=== PATIENT | male | born 1940 | race Caucasian/White ===

== ENCOUNTER → 2020-11-27 | Outpatient (CLI) | payer MEDICARE, OTHER ==
[~2020-11-27] MED LIST: ASPI81TA26 PO; ATOR1TAB21 PO; BIMA01SOL OU; ERGO500029; HUMA100I5; JARD1TAB; LOSA25TA13 PO; METF-838 PO; PRIM50TA6 PO; SEMA1PEN2; VITMTA PO
== END ==
LOC: M LABSMTC 11:25
PROVIDERS: ATTEND Anesthesiology
DX: Z01.818 Encounter for other preprocedural examination (principal); Z11.52 Encounter for screening for COVID-19

== ENCOUNTER 2020-12-01 07:51 | Day surgery (SDC) | payer MEDICARE, OTHER ==
[~2020-12-01] VITALS: Ht 182.9 cm; Wt 100.2 kg
[~2020-12-01 07:51] MED LIST changes: -ASPI81TA26 PO; +ATOR1TAB21; -ATOR1TAB21 PO; +BIMA01SOL; -BIMA01SOL OU; +BUPIVACAINE HCL 0.5% 10ML VIAL As Ordered ONE; +CEFUROXIME 1MG/0.1ML INTRACAMERAL INJ As Ordered ONE; +DUOVISC (0.50ML VISCOAT/0.85ML PROVISC) OPHTH KIT As Ordered ONE; +LIDOCAINE 1% SDV 5ML VIAL As Ordered ONE; -LOSA25TA13 PO; +LOSA25TA14; +PRIM50TA6; -PRIM50TA6 PO; +PROPARACAINE 0.5% OPHTH SOL 15ML OD ONE
[2020-12-01] MEDS ORDERED: BSS IRR 500ML/OMIDRIA 4ML IRR BAG (OR ONLY) As Ordered ONE (08:04)
[2020-12-01] MEDS: TROPICAMIDE 1% OPHTH SOLN 2ML OD SCH ×3 (08:29→08:46)
[2020-12-01] MEDS: PHENYLEPHRINE 2.5% OPHTH SOL 2ML OD SCH ×3 (08:29→08:47)
[2020-12-01] MEDS: OFLOXACIN 0.3 % (OCUFLOX) OPTH SOL 5ML OD SCH ×3 (08:29→08:47)
[2020-12-01] MEDS ORDERED: MIDAZOLAM INJ 2MG/2ML VIAL (J2250 PER 1MG) As Ordered ONE (08:43)
[2020-12-01 10:17] VITALS: BP 158/79
--- NOTE | 2020-12-05 19:44 | RO ---
OPERATIVE NOTE DATE OF OPERATION: 12/01/2020 PREOPERATIVE DIAGNOSIS: 1. Mature cataract, right eye. 2. Moderate open-angle glaucoma, right eye. POSTOPERATIVE DIAGNOSIS: 1. Mature cataract, right eye. 2. Moderate open-angle glaucoma, right eye. PROCEDURE: Phacoemulsification, cataract extraction, implantation of intraocular lens, right eye. Istent inject W trabecular bypass stents, right eye. SURGEON: Eren Garces M.D. ANESTHESIA: MAC and topical. COMPLICATIONS: None. ESTIMATED BLOOD LOSS: 0 mL. CONDITION: Excellent to recovery room with shield over right eye. LENS: Vivity Toric increased depth of focus lens, power 22.5 diopter with 1.5 diopter cylinder at 10 degrees. iStent inject serial number is [id number]. INDICATIONS FOR PROCEDURE: The patient experienced decreased vision associated with cataract formation. He is poorly compliant with his glaucoma drops. He stopped them on his own several times because he did not think he needed them any more and understands his glaucoma needs much better control. He wished to proceed with microinvasive glaucoma surgery using the MIGS trabecular bypass stents to decrease his need for drops and additional surgery going forward. He gave informed consent for the above procedures. PROCEDURE NOTE: Prior to entering the operating room, the patient was identified and the right eye was marked. He was wheeled supine to the OR suite positioned on a stretcher. Anesthesia was initiated. Topical Tetracaine was placed in both eyes. He was prepped and draped with 5% povidone iodine to the lids and lashes. The lashes were taped with Tegaderm. A speculum was placed in the right eye. A 1 mm side port was created at the 11:30 position. 1% preservative free lidocaine was injected. Viscoat was injected. A 2.6 mm stepped, grooved clear corneal incision was made temporally. A bent cystitome needle created a continuous curvilinear capsulorhexis. The head of the patient was then rotated 45 degrees away from the surgeon while the microscope was rotated 45 degrees toward the surgeon. Viscoat was placed on the cornea and additional Viscoat in the anterior chamber. A gonial prism was placed over the cornea and this afforded an excellent view of the medial anterior chamber angle structures. The iStent pipe blanks cut off saw operator was advanced through the clear corneal wound across the pupil and on high magnification, the sheath pipe blanks cut off saw operator was drawn back, exposing the trocar. The tip of the trocar engaged the trabecular meshwork one clock hour beneath the horizontal meridian. The button was pushed and the stent was deployed. 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 A second stent was deployed in the same fashion 1 clock hour above the horizontal meridian. The pipe blanks cut off saw operator was then withdrawn carefully from the eye. The patient's head and microscope were rotated back to primary position. BSS was used to wash off the cornea. Hydrodissection was then carried out using BSS and the lens was found to rotate freely in the capsular bag. It was phacoemulsified using [id number] technique. Residual cortex was removed with the IA. Provisc was injected to expand the capsular bag. The ora intraoperative aberrometer was then used to check lens power and axis of astigmatism. After several measurements, the above mentioned lens was called for and then used the reticle to assist, the toric sebastian on the intraocular lens were aligned with the reticle at the 10 degree axis. Residual viscoelastic was removed with the IA. BSS was used to hydrate the corneal wound and seal it. Antibiotic prophylaxis was injected. The speculum was removed from the eye. A shield was taped over the eye. The patient was taken in excellent condition to the recovery room.
== END 2020-12-01 10:44 | disposition home or self-care (01) ==
LOC: M SDC 07:51
PROVIDERS: ATTEND Ophthalmology
DX: H25.11 Age-related nuclear cataract, right eye (principal); H40.1110 Primary open-angle glaucoma, right eye, stage unspecified; I10 Essential (primary) hypertension; I25.10 Atherosclerotic heart disease of native coronary artery without angina pectoris; E11.21 Type 2 diabetes mellitus with diabetic nephropathy; E78.5 Hyperlipidemia, unspecified; M10.9 Gout, unspecified; Z79.4 Long term (current) use of insulin; Z79.899 Other long term (current) drug therapy; D53.9 Nutritional anemia, unspecified; Z79.84 Long term (current) use of oral hypoglycemic drugs
CPT/HCPCS: 66183; 66984; C1783; J1097; J2250; V2788

== ENCOUNTER → 2021-01-22 | Outpatient (CLI) | payer MEDICARE, OTHER ==
[~2021-01-22] MED LIST changes: +ASPI81TA26 PO; -ATOR1TAB21; +ATOR1TAB21 PO; -BIMA01SOL; +BIMA01SOL OU; -BUPIVACAINE HCL 0.5% 10ML VIAL As Ordered ONE; -CEFUROXIME 1MG/0.1ML INTRACAMERAL INJ As Ordered ONE; -DUOVISC (0.50ML VISCOAT/0.85ML PROVISC) OPHTH KIT As Ordered ONE; -LIDOCAINE 1% SDV 5ML VIAL As Ordered ONE; -LOSA25TA14; +LOSA25TA14 PO; -PRIM50TA6; +PRIM50TA6 PO; -PROPARACAINE 0.5% OPHTH SOL 15ML OD ONE
== END ==
LOC: M LABSMTC 09:14
PROVIDERS: ATTEND Anesthesiology
DX: Z01.812 Encounter for preprocedural laboratory examination (principal); Z20.822 Contact with and (suspected) exposure to COVID-19

== ENCOUNTER 2021-01-26 06:42 | Day surgery (SDC) | payer MEDICARE, OTHER ==
[~2021-01-26] VITALS: Ht 188 cm; Wt 99.8 kg
[~2021-01-26 06:42] MED LIST changes: +OFLOXACIN 0.3 % (OCUFLOX) OPTH SOL 5ML OS SCH; +PHENYLEPHRINE 2.5% OPHTH SOL 2ML OS SCH; +PROPARACAINE 0.5% OPHTH SOL 15ML OS ONE; +TROPICAMIDE 1% OPHTH SOLN 2ML OS SCH
--- OUTSIDE RECORDS SUMMARY | 2021-01-26 06:50 | CCD ---
Author Author Debbie Morse DO Organization Debbie Morse DO Address [address] [place], [place] [id number] Care Team Providers Care Direct Mail Coordinator Name Role Phone Mini WELCH MA, Amandeep Pina Unavailable Debbie Morse DO Unavailable Debbie Morse DO PCP ENCOUNTERS Encounter Performer Loca tion Date Bilateral cataracts [SNOMED-CT: 72764576] Dr. Debbie Morse DO 11-20-2020 Diabetes mellitus [SNOMED-CT: 34790865] Dr. Debbie Morse DO 11-20-2020 Diabetic nephropathy [SNOMED-CT: 442773715] Dr. Debbie Morse DO 11-20-2020 Hyperlipidemia [SNOMED-CT: 50401493] Dr. Debbie Morse DO 11-20-2020 Deficiency anemias [SNOMED-CT: 248603284] Dr. Debbie Morse DO 11-20-2020 Abnormal EKG finding [SNOMED-CT: 683724432] Dr. Debbie Morse DO 11-20-2020 Other hyperlipidemia [ICD10: E78.49] Dr. Debbie Morse DO 10-30-2020 Bilateral cataracts [SNOMED-CT: 51595743] Dr. Debbie Morse DO 10-30-2020 Diabetic nephropathy [SNOMED-CT: 952690668] Dr. Debbie Morse DO 10-30-2020 CORONARY ATHEROSCLEROSIS OF UNSPECIFIED TYPE OF VE [SNOMED-CT: 96634074] N/A N/A 10-30-2020 UNSPECIFIED ESSENTIAL HYPERTENSION [SNOMED-CT: 2769991 0] N/A N/A 10-30-2020 Vitamin D deficiency [SNOMED-CT: 81645389] Dr. Debbie Morse, DO 05-05-2020 Diabetic nephropathy [SNOMED-CT: 198811970] Dr. Debbie Morse, DO 05-05-2020 CORONARY ATHEROSCLEROSIS OF UNSPECIFIED TYPE OF VE [SNOMED-CT: 73751484] N/A N/A 05-05-2020 UNSPECIFIED ESSENTIAL HYPERTENSION [SNOMED-CT: 2133490 0] N/A N/A 05-05-2020 Other hyperlipidemia [ICD10: E78.49] Dr. Debbie Morse, DO 05-05-2020 Diabetes mellitus [SNOMED-CT: 62131441] Dr. Debbie Morse, DO 01-28-2020 On examination - aortic systolic murmur [SNOMED-CT: 826357992] Dr. Debbie Morse, DO 01-07-2020 Systolic ejection sound [SNOMED-CT: 37148933] Dr. Debbie Morse, DO 01-07-2020 Diabetes mellitus [SNOMED-CT: 64040362] Dr. Debbie Morse, DO 10-01-2019 UNSPECIFIED ESSENTIAL HYPERTENSION [SNOMED-CT: 5175648 0] N/A N/A 10-01-2019 Other hyperlipidemia [ICD10: E78.49] Dr. Debbie Morse, DO 10-01-2019 Diabetic nephropathy [SNOMED-CT: 333862751] Dr. Debbie Morse, DO 10-01-2019 Intention tremor [SNOMED-CT: 22450476] Dr. Debbie Morse, DO 10-01-2019 Leukopenia [SNOMED-CT: 57288686] Dr. Debbie Morse, DO 05-17-2019 Malaise and fatigue [SNOMED-CT: 944934900] Dr. Debbie Morse, DO 05-17-2019 Malaise and fatigue [SNOMED-CT: 353443674] Dr. Debbie Morse, DO 05-12-2019 Diabetic nephropathy [SNOMED-CT: 692701746] Dr. Debbie Morse, DO 05-12-2019 Other hyperlipidemia [ICD10: E78.49] Dr. Debbie Morse, DO 05-12-2019 Chronic tremor [SNOMED-CT: 173910412] Dr. Debbie Morse, DO 05-12-2019 Hoarseness [SNOMED-CT: 29494485] Dr. Debbie Morse, DO 05-12-2019 Vitamin D deficiency [SNOMED-CT: 44948607] Dr. Debbie Morse, DO 05-12-2019 Encounter for general adult medical exam ination without abnormal findings [ICD10: Z00.00] Amandeep Morse, DO 12-25-2018 Encounter for general adult medical exam ination without abnormal findings [ICD10: Z00.00] Amandeep Morse, DO 09-21-2018 Diabetic nephropathy [SNOMED-CT: 728836907] Dr. Debbie Morse, DO 07-27-2018 Vitamin D deficiency [SNOMED-CT: 98859559] Dr. Debbie Morse, DO 07-27-2018 Diabetes mellitus [SNOMED-CT: 04531575] Dr. Debbie Morse, DO 07-06-2018 UNSPECIFIED ESSENTIAL HYPERTENSION [SNOMED-CT: 5963936 0] N/A N/A 07-06-2018 Malaise and fatigue [SNOMED-CT: 807166713] Dr. Debbie Morse, DO 07-06-2018 Cough [SNOMED-CT: 27626174] Dr. Deb Morse, DO 07-06-2018 Diabetes mellitus [SNOMED-CT: 19227370] Dr. Debbie Morse, DO 12-29-2017 Hyperlipidemia [SNOMED-CT: 55626381] Dr. Debbie Morse, DO 12-29-2017 UNSPECIFIED ESSENTIAL HYPERTENSION [SNOMED-CT: 2292189 0] N/A N/A 12-29-2017 Intention tremor [SNOMED-CT: 11213646] Dr. Debbie Morse, DO 12-29-2017 Intention tremor [SNOMED-CT: 32219115] Dr. Debbie Morse, DO 01-17-2017 Encounter for general adult medical exam ination without abnormal findings [ICD10: Z00.00] Amandeep Morse, DO 10-23-2016 Diabetic - poor control [SNOMED-CT: 520818328] Dr. Debbie Morse, DO 09-16-2016 Intention tremor [SNOMED-CT: 06919719] Dr. Debbie Morse, DO 09-16-2016 CORONARY ATHEROSCLEROSIS OF UNSPECIFIED TYPE OF VE [SNOMED-CT: 40559322] N/A N/A 09-16-2016 Diabetes mellitus [SNOMED-CT: 00824802] Dr. Debbie Morse, DO 01-17-2016 Hyperlipidemia [SNOMED-CT: 85642138] Dr. Debbie Morse, DO 01-17-2016 ULCERATIVE COLITIS UNSPECIFIED [SNOMED-CT: 92487786] N/A N/A 01-17-2016 UNSPECIFIED ESSENTIAL HYPERTENSION [SNOMED-CT: 1225886 0] N/A N/A 01-17-2016 Other specified vaccination [ICD10: Z23] Amandeep Morse, DO 01-17-2016 Achilles tenosynovitis [SNOMED-CT: 395120612] Dr. Debbie Morse, DO 08-14-2015 Intention tremor [SNOMED-CT: 24964605] Dr. Debbie Morse, DO 05-15-2015 Malaise and fatigue [SNOMED-CT: 349955796] Dr. Debbie Morse, DO 05-15-2015 Diabetes mellitus [SNOMED-CT: 36428455] Dr. Debbie Morse, DO 05-15-2015 Diabetic - poor control [SNOMED-CT: 979847929] Dr. Debbie Morse, DO 01-30-2015 Dizziness [SNOMED-CT: 386331250] Dr. Debbie Morse, DO 01-30-2015 Intention tremor [SNOMED-CT: 52286694] Dr. Debbie Morse, DO 01-30-2015 Diabetic - poor control [SNOMED-CT: 677045192] Dr. Debbie Morse, DO 12-09-2014 ULCERATIVE COLITIS UNSPECIFIED [SNOMED-CT: 69367234] N/A N/A 12-09-2014 Hyperlipidemia [SNOMED-CT: 92227497] Dr. Debbie Morse, DO 12-09-2014 UNSPECIFIED ESSENTIAL HYPERTENSION [SNOMED-CT: 0418984 0] N/A N/A 12-09-2014 CORONARY ATHEROSCLEROSIS OF UNSPECIFIED TYPE OF VE [SNOMED-CT: 93893647] N/A N/A 12-09-2014 Benign enlargement of prostate [SNOMED-CT: 939984695] Dr. Debbie Morse, DO 12-09-2014 Influenza vaccine needed [SNOMED-CT: 2153318064560] Amandeep Morse, DO 12-09-2014 Acute rhinosinusitis [SNOMED-CT: 547746157] Dr. Debbie Morse, DO 05-30-2014 Diabetic - poor control [SNOMED-CT: 422027542] Dr. Debbie Morse, DO 04-29-2014 UNSPECIFIED ESSENTIAL HYPERTENSION [SNOMED-CT: 5030136 0] N/A N/A 04-29-2014 ULCERATIVE COLITIS UNSPECIFIED [SNOMED-CT: 75668597] N/A N/A 04-29-2014 Diabetic - poor control [SNOMED-CT: 321412590] Dr. Debbie Morse, DO 12-06-2013 UNSPECIFIED ESSENTIAL HYPERTENSION [SNOMED-CT: 3909058 0] N/A N/A 12-06-2013 Diabetic - poor control [SNOMED-CT: 834290536] Dr. Debbie Morse, DO 11-17-2013 UNSPECIFIED ESSENTIAL HYPERTENSION [SNOMED-CT: 5864263 0] N/A N/A 11-17-2013 Diabetic - poor control [SNOMED-CT: 990109387] Dr. Debbie Morse, DO 09-20-2013 Diabetes mellitus [SNOMED-CT: 10812001] Dr. Debbie Morse, DO 07-21-2013 UNSPECIFIED ESSENTIAL HYPERTENSION [SNOMED-CT: 8616906 0] N/A N/A 07-21-2013 Diabetes mellitus [SNOMED-CT: 53369445] Dr. Debbie Morse, DO 05-26-2013 UNSPECIFIED ESSENTIAL HYPERTENSION [SNOMED-CT: 5885358 0] N/A N/A 05-26-2013 Diabetic - poor control [SNOMED-CT: 479661847] Dr. Debbie Morse, DO 03-12-2013 UNSPECIFIED ESSENTIAL HYPERTENSION [SNOMED-CT: 7049107 0] N/A N/A 03-12-2013 CORONARY ATHEROSCLEROSIS OF UNSPECIFIED TYPE OF VE [SNOMED-CT: 32579652] N/A N/A 03-12-2013 Diabetic - poor control [SNOMED-CT: 507663306] Dr. Debbie Morse, DO 11-04-2012 UNSPECIFIED ESSENTIAL HYPERTENSION [SNOMED-CT: 7629022 0] N/A N/A 11-04-2012 REDNESS OR DISCHARGE OF EYE [SNOMED-CT: 99481368] Amandeep Morse, DO 06-12-2012 PAIN IN OR AROUND EYE [SNOMED-CT: 25242923] Amandeep Morse, DO 06-12-2012 Diabetic - poor control [SNOMED-CT: 860971828] Dr. Debbie Morse, DO 05-06-2012 UNSPECIFIED ESSENTIAL HYPERTENSION [SNOMED-CT: 4095827 0] N/A N/A 05-06-2012 CORONARY ATHEROSCLEROSIS OF UNSPECIFIED TYPE OF VE [SNOMED-CT: 11136520] N/A N/A 05-06-2012 ULCERATIVE COLITIS UNSPECIFIED [SNOMED-CT: 13610026] N/A N/A 05-06-2012 UNSPECIFIED VIRAL INFECTION [SNOMED-CT: 622888163] Amandeep Morse, DO 05-06-2012 Diabetic - poor control [SNOMED-CT: 368122090] Dr. Debbie Morse, DO 01-15-2012 UNSPECIFIED ESSENTIAL HYPERTENSION [SNOMED-CT: 2388661 0] N/A N/A 01-15-2012 Diabetes mellitus [SNOMED-CT: 12299116] Dr. Debbie Morse, DO 07-22-2011 CORONARY ATHEROSCLEROSIS OF UNSPECIFIED TYPE OF VE [SNOMED-CT: 36404912] N/A N/A 07-22-2011 UNSPECIFIED ESSENTIAL HYPERTENSION [SNOMED-CT: 7312845 0] N/A N/A 07-22-2011 Diabetic - poor control [SNOMED-CT: 847799667] Dr. Debbie Morse, DO 02-27-2011 UNSPECIFIED ESSENTIAL HYPERTENSION [SNOMED-CT: 0318315 0] N/A N/A 02-27-2011 Diabetic - poor control [SNOMED-CT: 334407372] Dr. Debbie Morse, DO 11-19-2010 UNSPECIFIED ESSENTIAL HYPERTENSION [SNOMED-CT: 9530963 0] N/A N/A 11-19-2010 NEED FOR PROPHYLACTIC VACCINATION AND IN OCULATION AGAINST INFLUENZA [SNOMED-CT: 674594282] Amandeep Morse, DO 11-19-2010 Diabetes mellitus [SNOMED-CT: 07143226] Dr. Debbie Morse, DO 06-06-2010 CORONARY ATHEROSCLEROSIS OF UNSPECIFIED TYPE OF VE [SNOMED-CT: 71064004] N/A N/A 06-06-2010 CERVICALGIA [SNOMED-CT: 82434165] Grzegorz Morse, DO 06-06-2010 IMPOTENCE OF ORGANIC ORIGIN [SNOMED-CT: 868684020] Amandeep Morse, DO 03-14-2010 IMPOTENCE OF ORGANIC ORIGIN [SNOMED-CT: 308837466] Amandeep Morse, DO 02-16-2010 IMPOTENCE OF ORGANIC ORIGIN [SNOMED-CT: 638628214] Amandeep Morse, DO 01-17-2010 Diabetic - poor control [SNOMED-CT: 225930911] Dr. Debbie Morse, DO 12-20-2009 ULCERATIVE COLITIS UNSPECIFIED [SNOMED-CT: 45584551] N/A N/A 12-20-2009 CORONARY ATHEROSCLEROSIS OF UNSPECIFIED TYPE OF VE [SNOMED-CT: 28118796] N/A N/A 12-20-2009 IMPOTENCE OF ORGANIC ORIGIN [SNOMED-CT: 507409147] Amandeep Morse, DO 12-20-2009 Diabetic - poor control [SNOMED-CT: 765391415] Dr. Debbie Morse, DO 03-31-2009 ULCERATIVE COLITIS UNSPECIFIED [SNOMED-CT: 53257981] N/A N/A 03-31-2009 CORONARY ATHEROSCLEROSIS OF UNSPECIFIED TYPE OF VE [SNOMED-CT: 30989644] N/A N/A 03-31-2009 IMPOTENCE OF ORGANIC ORIGIN [SNOMED-CT: 239553788] Amandeep Morse, DO 03-31-2009 Diabetic - poor control [SNOMED-CT: 754617330] Dr. Debbie Morse, DO 08-15-2008 Diabetes mellitus [SNOMED-CT: 02000135] Dr. 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 Debbie Morse, DO 06-28-2019 ALLERGIES AND ADVERSE REACTIONS Substance Reaction Sever ity Status No Known Drug Allergies (RxNorm: Unknown) -- -- Active FUNCTIONAL STATUS There is no cognitive and functional status saved for this patient. IMMUNIZATIONS Vaccine Date Status Moderna COVID-19 Vaccine (207) 2020 9:03:33 AM Completed Pneumovax 23 (33) 05/24/2019 8:39:03 AM Completed Fluzone High Dose (135) 05/24/2019 8: 38:35 AM Completed Prevnar 13 (133) 01/19/2016 1:51:53 PM Completed Fluvirin (141) 01/17/2016 11:35:18 AM Completed Afluria (141) 12/09/2014 12:33:32 PM Completed FluLaval (141) 11/19/2010 10:54:29 AM Completed H1N1 03/31/2009 12:00:00 AM Completed MEDICAL EQUIPMENT Patient has no history of implanted devices. MEDICATIONS Medication Generic Name Instructions Dosage Start Date Status primidone 50 mg oral tablet, [RxNorm: 406173] primidone one po hs daily for tremor 90 10/30/2020 Active OneTouch Ultra Blue In Vitro Strip Unknown use as directed tid ac for insulin dosing Dx E11.9 270 10/30/2020 Active metFORMIN 500 mg oral tablet, extended release metFORMIN three po daily in am 270 10/30/2020 Active losartan 25 mg oral tablet, [RxNorm: 725461] losartan one po daily 10/31/19 Active atorvastatin 20 mg oral tablet, [RxNorm: 117979] atorvastatin one po daily 90 10/31/19 Active Ozempic (1 mg dose) 4 mg/3 mL subcutaneous solution semaglutide one dose weekly 0 10/30/2020 Active HumaLOG KwikPen 100 units/mL injectable solution, [RxNorm: 9251659] insulin lispro 20 units with dinner 90 05/05/2020 Active Lumigan 0.01% ophthalmic solution, [RxNorm: 7969761] bimatoprost ophthalmic 0 12/29/2017 Active BD ultrafine needles for insulin Unknown use as directed qid 100 02/13/2016 Active glucometer with supplies One Touch Ultra Mini Unknown use as directed ac bid Dx 250.00 1 04/01/2014 Active Drainable [id number] Unknown Use as directed 1 11/19/2010 Active Brock-Fit Natura Stomahesive Flexible Wafer 32mm #[id number] 2 Unknown Use as directed 1 11/19/2010 Active Stomahesive flexible wafer 1 1/2' Unknown Use as directed 3 months 08/21/2009 Active Lancets Unknown use as d irected 90 06/24/2008 Active INSURANCE PROVIDERS Payer Name Policy Type P olicy ID Covered Republican ID Policy Narayanan [facility] [employer] SERVICES MEDICARE Health Insurance [id number] MEENU HERNANDEZ R [id number] FREEMAN MOURA ASSESSMENTS # Bilateral cataracts (H26.9): anticipating surgery on the right# Diabetes mellitus (E11.9): # Diabetic nephropathy (E11.21): # Hyperlipidemia (E78.5): # Deficiency anemias (D53.9):# Abnormal EKG finding (R94.31): PROBLEMS Problem Problem Status D ate Started Date Resolved Date Inactivated Influenza vaccine needed [SNOMED-CT: 3176211111478] Active 12-09-2014 NA NA Acute rhinosinusitis [SNOMED-CT: 703831157] Active 05-30-2014 NA NA UNSPECIFIED VIRAL INFECTION [SNOMED-CT: 376403117] Active 05-06-2012 NA NA REDNESS OR DISCHARGE OF EYE [SNOMED-CT: 27968769] Active 06-12-2012 NA NA Diabetes mellitus [SNOMED-CT: 67076172] Active 05-15-2015 NA NA Routine general medical examination at a health care facility [ICD10: Z00.00] Active 01-17-2016 NA NA DIABETES MELLITUS WITHOUT MENTION OF COM PLICATION [SNOMED-CT: 538741121] Active 06-20-2008 NA NA UNSPECIFIED ESSENTIAL HYPERTENSION [SNOMED-CT: 5060493 0] Active 06-20-2008 NA NA 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 [SNOMED-CT: 9675235 07] Active 06-20-2008 NA NA PAIN IN OR AROUND EYE [SNOMED-CT: 43642041] Active 06-12-2012 NA NA Malaise and fatigue [SNOMED-CT: 046524799] Active 05-15-2015 NA NA On examination - aortic systolic murmur [SNOMED-CT: 937687452] Active 01-07-2020 NA NA Systolic ejection sound [SNOMED-CT: 59667947] Active 01-07-2020 NA NA DIABETES MELLITUS WITHOUT MENTION OF COM PLICATION [SNOMED-CT: 233237100] Active 08-15-2008 NA NA Diabetic nephropathy [SNOMED-CT: 134185565] Active 07-27-2018 NA NA Vitamin D deficiency [SNOMED-CT: 45386138] Active 07-27-2018 NA NA Cough [SNOMED-CT: 63187184] Active 07-06-2018 NA NA Bilateral cataracts [SNOMED-CT: 80633700] Active 10-30-2020 NA NA CERVICALGIA [SNOMED-CT: 59860210] Active 06-06-2010 NA NA DIABETES MELLITUS WITHOUT MENTION OF COM PLICATION TYPE II OR UNSPECIFIED TYPE UNCONTROLLED [SNOMED-CT: 475302761] Active 03-12-2013 NA NA Leukopenia [SNOMED-CT: 72662313] Active 05-17-2019 NA NA NEED FOR PROPHYLACTIC VACCINATION AND IN OCULATION AGAINST INFLUENZA [SNOMED-CT: 303832467] Active 11-19-2010 NA NA Diabetic - poor control [SNOMED-CT: 339772287] Active 12-09-2014 NA NA Hyperlipidemia [SNOMED-CT: 82758266] Activ e 12-09-2014 NA NA Benign enlargement of prostate [SNOMED-CT: 953379828] Active 12-09-2014 NA NA Achilles tenosynovitis [SNOMED-CT: 350956426] Active 08-14-2015 NA NA Other specified vaccination [ICD10: Z23] Active 01-17-2016 NA NA ULCERATIVE COLITIS UNSPECIFIED [SNOMED-CT: 10096440] Active 03-31-2009 NA NA CORONARY ATHEROSCLEROSIS OF UNSPECIFIED TYPE OF VE [SNOMED-CT: 63513799] Active 03-31-2009 NA NA HYPERPLASIA OF PROSTATE UNSPECIFIED [SNOMED-CT: 119979 004] Active 03-31-2009 NA NA IMPOTENCE OF ORGANIC ORIGIN [SNOMED-CT: 162784297] Active 03-31-2009 NA NA IMPOTENCE OF ORGANIC ORIGIN [SNOMED-CT: 196674335] Active 01-17-2010 NA NA Encounter for general adult medical exam ination without abnormal findings [ICD10: Z00.00] Active 10-23-2016 NA NA Gouty arthropathy [SNOMED-CT: 616968686] Active 12-29-2017 NA NA Dizziness [SNOMED-CT: 396565541] Active 01-30-2015 NA NA Intention tremor [SNOMED-CT: 73702749] Active 01-30-2015 NA NA Other hyperlipidemia [ICD10: E78.49] Activ e 05-12-2019 NA NA Chronic tremor [SNOMED-CT: 716507892] Active 05-12-2019 NA NA Hoarseness [SNOMED-CT: 17315167] Active 05-12-2019 NA NA Deficiency anemias [SNOMED-CT: 381227085] Active 11-20-2020 NA NA Abnormal EKG finding [SNOMED-CT: 828612506] Active 11-20-2020 NA NA PROCEDURES Procedure Date CPT Code Procedure 11/20/2020 09:55:18 24501 Office or other outpatient visit for the evaluation and management of an established patient, which requires at least 2 of these 3 mcconnell components: A comprehensive history; A comprehensive examination; Medical decision making of high complexity. Counseling and/or coordination of care with other providers or agencies are provided consistent with the nature of the problem(s) and the patient's and/or family's needs. Usually, the presenting problem(s) are of moderate to high severity. Physicians typically spend 40 minutes gypx-bt-fqzr with the patient and/or family. 10/30/2020 08:25:19 G0439 ANNUAL WELLNESS VISIT, SUBSEQUENT 10/30/2020 08:25:19 G8427 Eligible clinician attests to documenting in the medical record they obtained, updated, or reviewed the patient's current medications 10/30/2020 08:25:19 29725 Hemoglobin; glycosylated (A1C) by device cleared by FDA for home use 10/30/2020 08:25:19 3044F Most recent hemoglobin A1c (HbA1c) level less than 7.0% (DM) 10/30/2020 08:25:19 1036F Current tobacco non-user (CAD, CAP, COPD, PV) (DM) (IBD) 10/30/2020 08:25:19 2F Dilated retinal eye exam with interpretation by an job honer or marble supervisor documented and reviewed (DM) 10/30/2020 08:25:19 1123F Advance Care Planning discussed and documented advance care plan or surrogate decision maker documented in the medical record (DEM) (NANETTE, Pall Cr) 05/05/2020 13:32:27 3044F Most recent hemoglobin A1c (HbA1c) level less than 7.0% (DM) 05/05/2020 08:51:19 33889 Telephone evaluation and management service by a physician or other qualified health field care advocate who may report evaluation and management services provided to an established patient, parent, or guardian not originating from a related E/M service provided within the previous 7 days nor leading to an E/M service or procedure within the next 24 hours or soonest available appointment; 11-20 minutes of medical discussion 05/05/2020 08:51:19 G8427 Eligible clinician attests to documenting in the medical record they obtained, updated, or reviewed the patient's current medications 01/28/2020 09:18:14 96416 Telephone evaluation and management service by a physician or other qualified health field care advocate who may report evaluation and management services provided to an established patient, parent, or guardian not originating from a related E/M service provided within the previous 7 days nor leading to an E/M service or procedure within the next 24 hours or soonest available appointment; 11-20 minutes of medical discussion 01/07/2020 12:28:49 05306 Office or other outpatient visit for the evaluation and management of an established patient, which requires at least 2 of these 3 mcconnell components: An expanded problem focused history; An expanded problem focused examination; Medical decision making of low complexity. Counseling and coordination of care with other providers or agencies are provided consistent with the nature of the problem(s) and the patient's and/or family's needs. Usually, the presenting problem(s) are of low to moderate severity. Physicians typically spend 15 minutes jjej-rn-dkuj with the patient and/or family. 11/29/2019 14:25:52 3044F Most recent hemoglobin A1c (HbA1c) level less than 7.0% (DM) 10/01/2019 09:24:35 G0439 ANNUAL WELLNESS VISIT, SUBSEQUENT 10/01/2019 09:24:35 G8427 Eligible clinician attests to documenting in the medical record they obtained, updated, or reviewed the patient's current medications 10/01/2019 09:24:35 1036F Current tobacco non-user (CAD, CAP, COPD, PV) (DM) (IBD) 10/01/2019 09:24:35 3044F Most recent hemoglobin A1c (HbA1c) level less than 7.0% (DM) 10/01/2019 09:24:35 1123F Advance Care Planning discussed and documented advance care plan or surrogate decision maker documented in the medical record (DEM) (NANETTE, Pall Cr) 06/28/2019 12:47:05 03379 Office or other outpatient visit for the evaluation and management of an established patient, which requires at least 2 of these 3 mcconnell components: An expanded problem focused history; An expanded problem focused examination; Medical decision making of low complexity. Counseling and coordination of care with other providers or agencies are provided consistent with the nature of the problem(s) and the patient's and/or family's needs. Usually, the presenting problem(s) are of low to moderate severity. Physicians typically spend 15 minutes lrjo-ue-iecd with the patient and/or family. 05/17/2019 14:26:42 91714 Office or other outpatient visit for the evaluation and management of an established patient, which requires at least 2 of these 3 mcconnell components: A detailed history; A detailed examination; Medical decision making of moderate complexity. Counseling and/or coordination of care with other providers or agencies are provided consistent with the nature of the problem(s) and the patient's and/or family's n eeds. Usually, the presenting problem(s) are of moderate to high severity. Physicians typically spend 25 minutes xexf-xd-yomk with the patient and/or family. 05/12/2019 08:23:59 23783 Office or other outpatient visit for the evaluation and management of an established patient, which requires at least 2 of these 3 mcconnell components: A comprehensive history; A comprehensive examination; Medical decision making of high complexity. Counseling and/or coordination of care with other providers or agencies are provided consistent with the nature of the problem(s) and the patient's and/or family's needs. Usually, the presenting problem(s) are of moderate to high severity. Physicians typically spend 40 minutes lzmk-rv-lzay with the patient and/or family. 05/12/2019 08:23:59 25430 Hemoglobin; glycosylated (A1C) by device cleared by FDA for home use 05/12/2019 08:23:59 G8427 Eligible clinician attests to documenting in the medical record they obtained, updated, or reviewed the patient's current medications 05/12/2019 08:23:59 3044F Most recent hemoglobin A1c (HbA1c) level less than 7.0% (DM) 12/25/2018 11:00:16 49522 Periodic comprehensive preventive medicine reevaluation and management of an individual including an age and gender appropriate history, examination, counseling/anticipatory guidance/risk factor reduction interventions, and the ordering of laboratory/diagnostic procedures, established patient; 65 years and older 12/08/2018 10:47:25 3044F Most recent hemoglobin A1c (HbA1c) level less than 7.0% (DM) 09/21/2018 09:27:25 43187 Periodic comprehensive preventive medicine reevaluation and management of an individual including an age and gender appropriate history, examination, counseling/anticipatory guidance/risk factor reduction interventions, and the ordering of laboratory/diagnostic procedures, established patient; 65 years and older 09/21/2018 09:27:25 3045F Most recent hemoglobin A1c (HbA1c) level 7.0-9.0% (DM) 09/21/2018 09:27:25 2F Dilated retinal eye exam with interpretation by an job honer or marble supervisor documented and reviewed (DM) 09/21/2018 09:27:25 G8427 Eligible clinician attests to documenting in the medical record they obtained, updated, or reviewed the patient's current medications 08/31/2018 11:31:29 3045F Most recent hemoglobin A1c (HbA1c) level 7.0-9.0% (DM) 07/27/2018 15:09:01 01416 Office or other outpatient visit for the evaluation and management of an established patient, which requires at least 2 of these 3 mcconnell components: An expanded problem focused history; An expanded problem focused examination; Medical decision making of low complexity. Counseling and coordination of care with other providers or agencies are provided consistent with the nature of the problem(s) and the patient's and/or family's needs. Usually, the presenting problem(s) are of low to moderate severity. Physicians typically spend 15 minutes ewvo-hd-khfa with the patient and/or family. 07/06/2018 11:57:31 G8427 Eligible clinician attests to documenting in the medical record they obtained, updated, or reviewed the patient's current medications 07/06/2018 11:57:31 1036F Current tobacco non-user (CAD, CAP, COPD, PV) (DM) (IBD) 07/06/2018 11:57:31 2021F Dilated retinal eye exam with interpretation by an job honer or marble supervisor documented and reviewed (DM) 07/06/2018 11:57:31 3045F Most recent hemoglobin A1c (HbA1c) level 7.0-9.0% (DM) 07/06/2018 11:57:31 1123F Advance Care Planning discussed and documented advance care plan or surrogate decision maker documented in the medical record (DEM) (NANETTE, Pall Cr) 07/06/2018 11:57:31 [id number] Periodic comprehensive preventive medicine reevaluation and management of an individual including an age and gender appropriate history, examination, counseling/anticipatory guidance/risk factor reduction interventions, and the ordering of laboratory/diagnostic procedures, established patient; 65 years and older 12/29/2017 11:43:59 G0439 ANNUAL WELLNESS VISIT, SUBSEQUENT 12/29/2017 11:43:59 92182 Hemoglobin; glycosylated (A1C) by device cleared by FDA for home use 12/29/2017 11:43:59 3044F Most recent hemoglobin A1c (HbA1c) level less than 7.0% (DM) 12/29/2017 11:43:59 1036F Current tobacco non-user (CAD, CAP, COPD, PV) (DM) (IBD) 12/29/2017 11:43:59 G8427 Eligible clinician attests to documenting in the medical record they obtained, updated, or reviewed the patient's current medications 12/29/2017 11:43:59 2022F Dilated retinal eye exam with interpretation by an job honer or marble supervisor documented and reviewed (DM) 12/29/2017 11:43:59 1123F Advance Care Planning discussed and documented advance care plan or surrogate decision maker documented in the medical record (DEM) (NANETTE, Pall Cr) 08/25/2017 14:35:53 3044F Most recent hemoglobin A1c (HbA1c) level less than 7.0% (DM) 01/17/2017 13:59:40 46156 Office or other outpatient visit for the evaluation and management of an established patient, which requires at least 2 of these 3 mcconnell components: A detailed history; A detailed examination; Medical decision making of moderate complexity. Counseling and/or coordination of care with other providers or agencies are provided consistent with the nature of the problem(s) and the patient's and/or family's n eeds. Usually, the presenting problem(s) are of moderate to high severity. Physicians typically spend 25 minutes gzpn-rc-kgdm with the patient and/or family. 10/23/2016 14:17:10 76966 Periodic comprehensive preventive medicine reevaluation and management of an individual including an age and gender appropriate history, examination, counseling/anticipatory guidance/risk factor reduction interventions, and the ordering of laboratory/diagnostic procedures, established patient; 65 years and older 10/23/2016 14:17:10 88905 Periodic comprehensive preventive medicine reevaluation and management of an individual including an age and gender appropriate history, examination, counseling/anticipatory guidance/risk factor reduction interventions, and the ordering of laboratory/diagnostic procedures, established patient; 65 years and older 10/23/2016 14:17:10 G8427 Eligible clinician attests to documenting in the medical record they obtained, updated, or reviewed the patient's current medications 10/23/2016 14:17:10 1036F Current tobacco non-user (CAD, CAP, COPD, PV) (DM) (IBD) 10/23/2016 14:17:10 2021F Dilated retinal eye exam with interpretation by an job honer or marble supervisor documented and reviewed (DM) 10/23/2016 14:17:10 3044F Most recent hemoglobin A1c (HbA1c) level less than 7.0% (DM) 09/16/2016 09:17:04 79072 Office or other outpatient visit for the evaluation and management of an established patient, which requires at least 2 of these 3 mcconnell components: A detailed history; A detailed examination; Medical decision making of moderate complexity. Counseling and/or coordination of care with other providers or agencies are provided consistent with the nature of the problem(s) and the patient's and/or family's n eeds. Usually, the presenting problem(s) are of moderate to high severity. Physicians typically spend 25 minutes reoy-ci-vfvf with the patient and/or family. 09/16/2016 09:17:04 G9711 Patients with a diagnosis or past history of total colectomy or colorectal cancer 09/16/2016 09:17:04 2F Dilated retinal eye exam with interpretation by an job honer or marble supervisor documented and reviewed (DM) 09/16/2016 09:17:04 G8427 Eligible clinician attests to documenting in the medical record they obtained, updated, or reviewed the patient's current medications 09/16/2016 09:17:04 3044F Most recent hemoglobin A1c (HbA1c) level less than 7.0% (DM) 09/16/2016 09:17:04 1036F Current tobacco non-user (CAD, CAP, COPD, PV) (DM) (IBD) 01/17/2016 10:41:29 Q2037 FLUVRIN 01/17/2016 10:41:29 G0008 ADMINISTRATION OF FLU VACCINE (V04.81) 01/17/2016 10:41:29 G0439 ANNUAL WELLNESS VISIT, SUBSEQUENT 08/14/2015 11:10:52 42260 Office or other outpatient visit for the evaluation and management of an established patient, which requires at least 2 of these 3 mcconnell components: An expanded problem focused history; An expanded problem focused examination; Medical decision making of low complexity. Counseling and coordination of care with other providers or agencies are provided consistent with the nature of the problem(s) and the patient's and/or family's needs. Usually, the presenting problem(s) are of low to moderate severity. Physicians typically spend 15 minutes gqpb-aq-uinw with the patient and/or family. 05/15/2015 08:28:44 88034 Office or other outpatient visit for the evaluation and management of an established patient, which requires at least 2 of these 3 mcconnell components: A detailed history; A detailed examination; Medical decision making of moderate complexity. Counseling and/or coordination of care with other providers or agencies are provided consistent with the nature of the problem(s) and the patient's and/or family's n eeds. Usually, the presenting problem(s) are of moderate to high severity. Physicians typically spend 25 minutes orlb-gj-opdx with the patient and/or family. 01/30/2015 08:36:25 10382 Collection of venous blood by venipuncture 01/30/2015 08:36:25 15570 Office or other outpatient visit for the evaluation and management of an established patient, which requires at least 2 of these 3 mcconnell components: An expanded problem focused history; An expanded problem focused examination; Medical decision making of low complexity. Counseling and coordination of care with other providers or agencies are provided consistent with the nature of the problem(s) and the patient's and/or family's needs. Usually, the presenting problem(s) are of low to moderate severity. Physicians typically spend 15 minutes hepp-yh-ffdc with the patient and/or family. 12/09/2014 11:50:27 39793 Office or other outpatient visit for the evaluation and management of an established patient, which requires at least 2 of these 3 mcconnell components: An expanded problem focused history; An expanded problem focused examination; Medical decision making of low complexity. Counseling and coordination of care with other providers or agencies are provided consistent with the nature of the problem(s) and the patient's and/or family's needs. Usually, the presenting problem(s) are of low to moderate severity. Physicians typically spend 15 minutes qwyr-vm-atbe with the patient and/or family. 12/09/2014 11:50:27 Q2035 Afluria flu Vaccine 12/09/2014 11:50:27 G0008 ADMINISTRATION OF FLU VACCINE (V04.81) 05/30/2014 08:55:58 77237 Office or other outpatient visit for the evaluation and management of an established patient, which requires at least 2 of these 3 mcconnell components: An expanded problem focused history; An expanded problem focused examination; Medical decision making of low complexity. Counseling and coordination of care with other providers or agencies are provided consistent with the nature of the problem(s) and the patient's and/or family's needs. Usually, the presenting problem(s) are of low to moderate severity. Physicians typically spend 15 minutes roub-sb-qbyg with the patient and/or family. 04/29/2014 15:16:59 G0439 ANNUAL WELLNESS VISIT, SUBSEQUENT 04/29/2014 15:16:59 61908 Hemoglobin; glycosylated (A1C) by device cleared by FDA for home use 12/06/2013 00:00:00 28768 Office or other outpatient visit for the evaluation and management of an established patient, which requires at least 2 of these 3 mcconnell components: An expanded problem focused history; An expanded problem focused examination; Medical decision making of low complexity. Counseling and coordination of care with other providers or agencies are provided consistent with the nature of the problem(s) and the patient's and/or family's needs. Usually, the presenting problem(s) are of low to moderate severity. Physicians typically spend 15 minutes yhca-ux-ivvn with the patient and/or family. 11/17/2013 00:00:00 12329 Office or other outpatient visit for the evaluation and management of an established patient, which requires at least 2 of these 3 mcconnell components: An expanded problem focused history; An expanded problem focused examination; Medical decision making of low complexity. Counseling and coordination of care with other providers or agencies are provided consistent with the nature of the problem(s) and the patient's and/or family's needs. Usually, the presenting problem(s) are of low to moderate severity. Physicians typically spend 15 minutes bjil-dr-fgln with the patient and/or family. 09/20/2013 00:00:00 04903 Office or other outpatient visit for the evaluation and management of an established patient, which requires at least 2 of these 3 mcconnell components: A detailed history; A detailed examination; Medical decision making of moderate complexity. Counseling and/or coordination of care with other providers or agencies are provided consistent with the nature of the problem(s) and the patient's and/or family's n eeds. Usually, the presenting problem(s) are of moderate to high severity. Physicians typically spend 25 minutes hcwe-vu-uneb with the patient and/or family. 09/20/2013 00:00:00 06066 Hemoglobin; glycosylated (A1C) by device cleared by FDA for home use 07/21/2013 00:00:00 26708 Office or other outpatient visit for the evaluation and management of an established patient, which requires at least 2 of these 3 mcconnell components: A detailed history; A detailed examination; Medical decision making of moderate complexity. Counseling and/or coordination of care with other providers or agencies are provided consistent with the nature of the problem(s) and the patient's and/or family's n eeds. Usually, the presenting problem(s) are of moderate to high severity. Physicians typically spend 25 minutes pysa-xb-dafj with the patient and/or family. 06/30/2013 00:00:00 65089 Hemoglobin; glycosylated (A1C) by device cleared by FDA for home use 05/26/2013 00:00:00 64110 Office or other outpatient visit for the evaluation and management of an established patient, which requires at least 2 of these 3 mcconnell components: A comprehensive history; A comprehensive examination; Medical decision making of high complexity. Counseling and/or coordination of care with other providers or agencies are provided consistent with the nature of the problem(s) and the patient's and/or family's needs. Usually, the presenting problem(s) are of moderate to high severity. Physicians typically spend 40 minutes dyxw-cj-xbac with the patient and/or family. 05/26/2013 00:00:00 90860 Hemoglobin; glycosylated (A1C) by device cleared by FDA for home use 03/12/2013 00:00:00 36451 Hemoglobin; glycosylated (A1C) by device cleared by FDA for home use 03/12/2013 00:00:00 27849 Collection of venous blood by venipuncture 03/12/2013 00:00:00 19732 Office or other outpatient visit for the evaluation and management of an established patient, which requires at least 2 of these 3 mcconnell components: A detailed history; A detailed examination; Medical decision making of moderate complexity. Counseling and/or coordination of care with other providers or agencies are provided consistent with the nature of the problem(s) and the patient's and/or family's n eeds. Usually, the presenting problem(s) are of moderate to high severity. Physicians typically spend 25 minutes vsqq-an-pypy with the patient and/or family. 11/04/2012 11:10:05 G0438 MEDICARE PHYSICAL (ANNUAL WELLNESS, FIRST) 06/12/2012 10:23:59 73664 Office or other outpatient visit for the evaluation and management of an established patient, which requires at least 2 of these 3 mcconnell components: An expanded problem focused history; An expanded problem focused examination; Medical decision making of low complexity. Counseling and coordination of care with other providers or agencies are provided consistent with the nature of the problem(s) and the patient's and/or family's needs. Usually, the presenting problem(s) are of low to moderate severity. Physicians typically spend 15 minutes gybg-wx-winz with the patient and/or family. 05/25/2012 09:16:46 92100 Office or other outpatient visit for the evaluation and management of an established patient, which requires at least 2 of these 3 mcconnell components: A detailed history; A detailed examination; Medical decision making of moderate complexity. Counseling and/or coordination of care with other providers or agencies are provided consistent with the nature of the problem(s) and the patient's and/or family's n eeds. Usually, the presenting problem(s) are of moderate to high severity. Physicians typically spend 25 minutes hwij-zj-jiob with the patient and/or family. 05/06/2012 09:14:51 00531 Infectious agent antigen detection by immunoassay with direct optical observation; Influenza 05/06/2012 09:14:51 36571 Hemoglobin; glycosylated (A1C) by device cleared by FDA for home use 05/06/2012 09:14:51 53126 Office or other outpatient visit for the evaluation and management of an established patient, which requires at least 2 of these 3 mcconnell components: An expanded problem focused history; An expanded problem focused examination; Medical decision making of low complexity. Counseling and coordination of care with other providers or agencies are provided consistent with the nature of the problem(s) and the patient's and/or family's needs. Usually, the presenting problem(s) are of low to moderate severity. Physicians typically spend 15 minutes dxlh-ww-krfi with the patient and/or family. 05/06/2012 09:14:51 75584 Collection of venous blood by venipuncture 01/15/2012 11:25:41 05108 Hemoglobin; glycosylated (A1C) by device cleared by FDA for home use 01/15/2012 11:25:41 54796 Office or other outpatient visit for the evaluation and management of an established patient, which requires at least 2 of these 3 mcconnell components: A detailed history; A detailed examination; Medical decision making of moderate complexity. Counseling and/or coordination of care with other providers or agencies are provided consistent with the nature of the problem(s) and the patient's and/or family's n eeds. Usually, the presenting problem(s) are of moderate to high severity. Physicians typically spend 25 minutes kbjk-om-rgqm with the patient and/or family. 07/22/2011 11:36:33 G8553 AT LEASTONE PRESCRIPTION CREATED DURING THE ENCOUNTER WAS GENERATED AND TRANSMITTED ELECTRONICALLY USING A QUALIFIED [employer] SYSTEM 07/22/2011 11:36:33 88814 Office or other outpatient visit for the evaluation and management of an established patient, which requires at least 2 of these 3 mcconnell components: A detailed history; A detailed examination; Medical decision making of moderate complexity. Counseling and/or coordination of care with other providers or agencies are provided consistent with the nature of the problem(s) and the patient's and/or family's n eeds. Usually, the presenting problem(s) are of moderate to high severity. Physicians typically spend 25 minutes afki-gc-jcpw with the patient and/or family. 07/22/2011 11:36:33 43606 Collection of venous blood by venipuncture 02/27/2011 14:11:30 22340 Hemoglobin; glycosylated (A1C) 02/27/2011 14:11:30 92059 Office or other outpatient visit for the evaluation and management of an established patient, which requires at least 2 of these 3 mcconnell components: A detailed history; A detailed examination; Medical decision making of moderate complexity. Counseling and/or coordination of care with other providers or agencies are provided consistent with the nature of the problem(s) and the patient's and/or family's n eeds. Usually, the presenting problem(s) are of moderate to high severity. Physicians typically spend 25 minutes cmog-mr-knvg with the patient and/or family. 11/19/2010 09:55:18 68561 INFLUENZA VACCINATION 11/19/2010 09:55:18 77608 Office or other outpatient visit for the evaluation and management of an established patient, which requires at least 2 of these 3 mcconnell components: A detailed history; A detailed examination; Medical decision making of moderate complexity. Counseling and/or coordination of care with other providers or agencies are provided consistent with the nature of the problem(s) and the patient's and/or family's n eeds. Usually, the presenting problem(s) are of moderate to high severity. Physicians typically spend 25 minutes jwrv-lc-uvkh with the patient and/or family. 11/19/2010 09:55:18 68961 Immunization administration (includes percutaneous, intradermal, subcutaneous, or intramuscular injections); one vaccine (single or combination vaccine/toxoid) 06/06/2010 11:56:45 82861 Office or other outpatient visit for the evaluation and management of an established patient, which requires at least 2 of these 3 mcconnell components: An expanded problem focused history; An expanded problem focused examination; Medical decision making of low complexity. Counseling and coordination of care with other providers or agencies are provided consistent with the nature of the problem(s) and the patient's and/or family's needs. Usually, the presenting problem(s) are of low to moderate severity. Physicians typically spend 15 minutes dgxn-gf-kztk with the patient and/or family. 03/14/2010 09:31:41 80439 Office or other outpatient visit for the evaluation and management of an established patient, which requires at least 2 of these 3 mcconnell components: An expanded problem focused history; An expanded problem focused examination; Medical decision making of low complexity. Counseling and coordination of care with other providers or agencies are provided consistent with the nature of the problem(s) and the patient's and/or family's needs. Usually, the presenting problem(s) are of low to moderate severity. Physicians typically spend 15 minutes oomp-je-akvb with the patient and/or family. 02/16/2010 15:36:52 33301 Office or other outpatient visit for the evaluation and management of an established patient, which requires at least 2 of these 3 mcconnell components: A problem focused history; A problem focused examination; Straightforward medical decision making. Counseling and/or coordination of care with other providers or agencies are provided consistent with the nature of the problem(s) and the patient's and/or f amily's needs. Usually, the presenting problem(s) are self limited or minor. Physicians typically spend 10 minutes rfee-fa-bhqh with the patient and/or family. 01/17/2010 15:16:51 59549 Office or other outpatient visit for the evaluation and management of an established patient, which requires at least 2 of these 3 mcconnell components: A problem focused history; A problem focused examination; Straightforward medical decision making. Counseling and/or coordination of care with other providers or agencies are provided consistent with the nature of the problem(s) and the patient's and/or f amily's needs. Usually, the presenting problem(s) are self limited or minor. Physicians typically spend 10 minutes ofxo-qq-vbyg with the patient and/or family. 12/20/2009 10:32:27 98823 Office or other outpatient visit for the evaluation and management of an established patient, which requires at least 2 of these 3 mcconnell components: A detailed history; A detailed examination; Medical decision making of moderate complexity. Counseling and/or coordination of care with other providers or agencies are provided consistent with the nature of the problem(s) and the patient's and/or family's n eeds. Usually, the presenting problem(s) are of moderate to high severity. Physicians typically spend 25 minutes lhrk-jd-jjns with the patient and/or family. 03/31/2009 09:20:07 59530 ADMINISTRATION OF TH H1N1 VACCINE 03/31/2009 09:20:07 82659 Office or other outpatient visit for the evaluation and management of an established patient, which requires at least 2 of these 3 mcconnell components: A detailed history; A detailed examination; Medical decision making of moderate complexity. Counseling and/or coordination of care with other providers or agencies are provided consistent with the nature of the problem(s) and the patient's and/or family's n eeds. Usually, the presenting problem(s) are of moderate to high severity. Physicians typically spend 25 minutes ugzy-oc-fefq with the patient and/or family. 03/31/2009 09:20:07 72736 Collection of venous blood by venipuncture 08/15/2008 09:58:37 53040 Office or other outpatient visit for the evaluation and management of an established patient, which requires at least 2 of these 3 mcconnell components: A detailed history; A detailed examination; Medical decision making of moderate complexity. Counseling and/or coordination of care with other providers or agencies are provided consistent with the nature of the problem(s) and the patient's and/or family's n eeds. Usually, the presenting problem(s) are of moderate to high severity. Physicians typically spend 25 minutes qxbd-eg-scmh with the patient and/or family. 06/24/2008 14:09:38 48369 Office or other outpatient visit for the evaluation and management of an established patient, which requires at least 2 of these 3 mcconnell components: A detailed history; A detailed examination; Medical decision making of moderate complexity. Counseling and/or coordination of care with other providers or agencies are provided consistent with the nature of the problem(s) and the patient's and/or family's n eeds. Usually, the presenting problem(s) are of moderate to high severity. Physicians typically spend 25 minutes wxeh-mc-rlzf with the patient and/or family. 06/24/2008 14:09:38 61759 Collection of venous blood by venipuncture REASON FOR REFERRAL No Reason for Referral information available. RESULTS Result Type Result Value Relevant Reference Range Interpretation Date GLOMERULAR FILTRATION RAT 56 mL/min -- No Flag 11/17/2020 07:59:00 GLUCOSE 135 mg/dL 74-106 H 11/17/2020 07:59:00 BLOOD UREA NITROGEN 22 mg/dL 7-18 H 11/17/2020 07:59:00 CREATININE 1.25 mg/dL 0. 7-1.3 No Flag 11/17/2020 07:59:00 SODIUM 141 mmol/L 136-145 No Flag 11/17/2020 07:59:00 POTASSIUM 4.8 mmol/L 3.5 -5.1 No Flag 11/17/2020 07:59:00 CHLORIDE 104 mmol/L 98-1 07 No Flag 11/17/2020 07:59:00 CO2 28 mmol/L 21-32 No Flag 11/17/2020 07:59:00 CALCIUM 8.8 mg/dL 8.5-10 .1 No Flag 11/17/2020 07:59:00 ANION GAP 9.0 mmol/L 5-12 No Flag 11/17/2020 07:59:00 AST 13 U/L 15-37 L 11/17/2020 07:59:00 ALT 23 U/L 12-78 No Flag 11/17/2020 07:59:00 ALKALINE PHOSPHATASE 103 U/L 46-116 No Flag 11/17/2020 07:59:00 TOTAL BILIRUBIN 0.7 mg/dL 0.2-1.0 No Flag 11/17/2020 07:59:00 TOTAL PROTEIN 6.7 g/dl 6 .4-8.2 No Flag 11/17/2020 07:59:00 ALBUMIN 3.7 gm/dL 3.4-5.0 No Flag 11/17/2020 07:59:00 CHOLESTEROL 144 mg/dL 0- 200 No Flag 11/17/2020 07:59:00 TRIGLYCERIDES 76 mg/dL 0 -150 No Flag 11/17/2020 07:59:00 LDL CHOLESTEROL 56 mg/dL 0-100 No Flag 11/17/2020 07:59:00 HDL CHOLESTEROL 73 mg/dL 40-60 H 11/17/2020 07:59:00 CHOL/HDL RATIO 2.0 0.0- 5.0 No Flag 11/17/2020 07:59:00 MAGNESIUM 1.7 mg/dL 1.8- 2.4 L 11/17/2020 07:59:00 URINE MICROALBUMIN 7.8 mg/L 1.3-20.0 No Flag 11/17/2020 07:45:00 URINE CREATININE 117.8 mg/dL -- No Flag 11/17/2020 07:45:00 MICROALBUMIN/CREATININE R 6 ug/mg -- No Flag 11/17/2020 07:45:00 HGBA1C 6.4 % 3.8-5.6 H 11/17/2020 07:33:00 ESTIMATED AVERAGE GLUCOSE 137.0 mg/dL -- No [facility] 11/17/2020 07:33:00 WHITE BLOOD COUNT 4.1 K/mm3 4.0-10.0 No [facility] 11/17/2020 07:18:00 RED BLOOD COUNT 4.06 M/mm3 4.50-6.00 L 11/17/2020 07:18:00 HEMOGLOBIN 13.5 gm/dL 14 .0-18.0 L 11/17/2020 07:18:00 HEMATOCRIT 39.4 % 42.0-5 4.0 L 11/17/2020 07:18:00 MEAN CELL VOLUME 97.0 fl 80-96 H 11/17/2020 07:18:00 MEAN CORPUSCULAR HEMOGLOB 33.3 pg 27.0-31.0 H 11/17/2020 07:18:00 MEAN CORPUSCULAR HGB CONC 34.3 g/dl 32.0- 36.0 No [facility] 11/17/2020 07:18:00 RED CELL DISTRIBUTION WID 12.8 % 10.0-14.5 No [facility] 11/17/2020 07:18:00 PLATELET COUNT 141 K/mm3 172-450 L 11/17/2020 07:18:00 MEAN PLATELET VOLUME 9.3 fl 9.0-13.0 No [facility] 11/17/2020 07:18:00 GRAN % 45.0 % 50-80.0 L 11/17/2020 07:18:00 IG% 0.5 % 0.0-0.2 H 11/17/2020 07:18:00 LYMPH % 35.4 % 25.0-50.0 No [facility] 11/17/2020 07:18:00 MONO % 11.5 % 2.0-10.0 H 11/17/2020 07:18:00 EOS % 7.1 % 0-5.0 H 11/17/2020 07:18:00 BASO % 0.5 % 0.0-2.0 No [facility] 11/17/2020 07:18:00 GRAN # 1.8 K/mm3 2.0-8.00 L 11/17/2020 07:18:00 IG# 0.0 K/mm3 0.0-0.2 No [facility] 11/17/2020 07:18:00 LYMPH # 1.4 K/mm3 1.0-5.0 No Flag 11/17/2020 07:18:00 MONO # 0.5 K/mm3 0.10-1. 20 No Flag 11/17/2020 07:18:00 EOS # 0.3 K/mm3 0.0-0.5 No Flag 11/17/2020 07:18:00 BASO # 0.0 K/mm3 0.0-0.2 No Flag 11/17/2020 07:18:00 VITAMIN D, 25-HYDROXY 32.3 ng/mL 30.0-100.0 No Flag 07/08/2020 08:06:00 GLOMERULAR FILTRATION RAT 60 mL/min -- No Flag 05/05/2020 12:06:00 GLUCOSE 130 mg/dL 74-106 H 05/05/2020 12:06:00 BLOOD UREA NITROGEN 21 mg/dL 7-18 H 05/05/2020 12:06:00 CREATININE 1.17 mg/dL 0. 7-1.3 No Flag 05/05/2020 12:06:00 SODIUM 139 mmol/L 136-145 No Flag 05/05/2020 12:06:00 POTASSIUM 4.6 mmol/L 3.5 -5.1 No Flag 05/05/2020 12:06:00 CHLORIDE 102 mmol/L 98-1 07 No Flag 05/05/2020 12:06:00 CO2 26 mmol/L 21-32 No Flag 05/05/2020 12:06:00 CALCIUM 9.0 mg/dL 8.5-10 .1 No Flag 05/05/2020 12:06:00 ANION GAP 11.0 mmol/L 5- 12 No Flag 05/05/2020 12:06:00 AST 27 U/L 15-37 No Flag 05/05/2020 12:06:00 ALT 31 U/L 12-78 No Flag 05/05/2020 12:06:00 ALKALINE PHOSPHATASE 80 U/L 46-116 No Flag 05/05/2020 12:06:00 TOTAL BILIRUBIN 0.5 mg/dL 0.2-1.0 No Flag 05/05/2020 12:06:00 TOTAL PROTEIN 6.9 g/dl 6 .4-8.2 No Flag 05/05/2020 12:06:00 ALBUMIN 3.8 gm/dL 3.4-5.0 No [facility] 05/05/2020 12:06:00 CHOLESTEROL 144 mg/dL 0- 200 No [facility] 05/05/2020 12:06:00 TRIGLYCERIDES 61 mg/dL 0 -150 No [facility] 05/05/2020 12:06:00 LDL CHOLESTEROL 62 mg/dL 0-100 No [facility] 05/05/2020 12:06:00 HDL CHOLESTEROL 70 mg/dL 40-60 H 05/05/2020 12:06:00 CHOL/HDL RATIO 2.1 0.0- 5.0 No [facility] 05/05/2020 12:06:00 HGBA1C 6.9 % 3.8-5.6 H 05/05/2020 11:53:00 ESTIMATED AVERAGE GLUCOSE 151.3 mg/dL -- No [facility] 05/05/2020 11:53:00 URINE MICROALBUMIN 11.2 mg/L 1.3-20.0 No [facility] 05/05/2020 11:47:00 URINE CREATININE 110.1 mg/dL -- No [facility] 05/05/2020 11:47:00 MICROALBUMIN/CREATININE R 10 ug/mg -- No [facility] 05/05/2020 11:47:00 WHITE BLOOD COUNT 3.8 K/mm3 4.0-10.0 L 05/05/2020 11:34:00 RED BLOOD COUNT 4.24 M/mm3 4.50-6.00 L 05/05/2020 11:34:00 HEMOGLOBIN 14.0 gm/dL 14 .0-18.0 No [facility] 05/05/2020 11:34:00 HEMATOCRIT 40.8 % 42.0-5 4.0 L 05/05/2020 11:34:00 MEAN CELL VOLUME 96.2 fl 80-96 H 05/05/2020 11:34:00 MEAN CORPUSCULAR HEMOGLOB 33.0 pg 27.0-31.0 H 05/05/2020 11:34:00 MEAN CORPUSCULAR HGB CONC 34.3 g/dl 32.0- 36.0 No [facility] 05/05/2020 11:34:00 RED CELL DISTRIBUTION WID 12.7 % 10.0-14.5 No [facility] 05/05/2020 11:34:00 PLATELET COUNT 168 K/mm3 172-450 L 05/05/2020 11:34:00 MEAN PLATELET VOLUME 9.2 fl 9.0-13.0 No Flag 05/05/2020 11:34:00 GRAN % 50.8 % 50-80.0 No Flag 05/05/2020 11:34:00 IG% 0.0 % 0.0-0.2 No Flag 05/05/2020 11:34:00 LYMPH % 30.9 % 25.0-50.0 No Flag 05/05/2020 11:34:00 MONO % 10.5 % 2.0-10.0 H 05/05/2020 11:34:00 EOS % 6.8 % 0-5.0 H 05/05/2020 11:34:00 BASO % 1.0 % 0.0-2.0 No Flag 05/05/2020 11:34:00 GRAN # 1.9 K/mm3 2.0-8.00 L 05/05/2020 11:34:00 IG# 0.0 K/mm3 0.0-0.2 No Flag 05/05/2020 11:34:00 LYMPH # 1.2 K/mm3 1.0-5.0 No Flag 05/05/2020 11:34:00 MONO # 0.4 K/mm3 0.10-1. 20 No Flag 05/05/2020 11:34:00 EOS # 0.3 K/mm3 0.0-0.5 No Flag 05/05/2020 11:34:00 BASO # 0.0 K/mm3 0.0-0.2 No Flag 05/05/2020 11:34:00 VITAMIN D, 25-HYDROXY 25.3 ng/mL 30.0-100.0 L 05/14/2019 08:06:00 URINE MICROALBUMIN 14.6 mg/L 1.3-20.0 No Flag 05/13/2019 10:55:00 URINE CREATININE 89.5 mg/dL -- No Flag 05/13/2019 10:55:00 MICROALBUMIN/CREATININE R 16 ug/mg -- No Flag 05/13/2019 10:55:00 TSH 2.94 uIU/mL 0.36-3.74 No Flag 05/13/2019 09:33:00 C REACTIVE PROTEIN 14.1 mg/L 0.0-3.0 H 05/13/2019 09:00:00 CHOLESTEROL 147 mg/dL 0- 200 No Flag 05/13/2019 09:00:00 TRIGLYCERIDES 59 mg/dL 0 -150 No Flag 05/13/2019 09:00:00 LDL CHOLESTEROL 57 mg/dL 0-100 No Flag 05/13/2019 09:00:00 HDL CHOLESTEROL 78 mg/dL 40-60 H 05/13/2019 09:00:00 CHOL/HDL RATIO 1.9 0.0- 5.0 No Flag 05/13/2019 09:00:00 GLOMERULAR FILTRATION RAT 54 mL/min -- No Flag 05/13/2019 09:00:00 GLUCOSE 121 mg/dL 74-106 H 05/13/2019 09:00:00 BLOOD UREA NITROGEN 24 mg/dL 7-18 H 05/13/2019 09:00:00 CREATININE 1.3 mg/dL 0.7 -1.3 No Flag 05/13/2019 09:00:00 SODIUM 142 mmol/L 136-145 No Flag 05/13/2019 09:00:00 POTASSIUM 4.2 mmol/L 3.5 -5.1 No Flag 05/13/2019 09:00:00 CHLORIDE 102 mmol/L 98-1 07 No Flag 05/13/2019 09:00:00 CO2 28 mmol/L 21-32 No Flag 05/13/2019 09:00:00 CALCIUM 9.0 mg/dL 8.5-10 .1 No Flag 05/13/2019 09:00:00 ANION GAP 12.0 mmol/L 5- 12 No Flag 05/13/2019 09:00:00 AST 26 U/L 15-37 No Flag 05/13/2019 09:00:00 ALT 33 U/L 12-78 No Flag 05/13/2019 09:00:00 ALKALINE PHOSPHATASE 75 U/L 46-116 No Flag 05/13/2019 09:00:00 TOTAL BILIRUBIN 0.9 mg/dL 0.2-1.0 No Flag 05/13/2019 09:00:00 TOTAL PROTEIN 7.4 g/dl 6 .4-8.2 No Flag 05/13/2019 09:00:00 ALBUMIN 4.2 gm/dL 3.4-5.0 No Flag 05/13/2019 09:00:00 WHITE BLOOD COUNT See notes. K/mm3 4.0-10.0 L 05/13/2019 08:18:00 RED BLOOD COUNT See notes. M/mm3 4.50-6.00 L 05/13/2019 08:18:00 HEMOGLOBIN See notes. gm/dL 14.0-18.0 No Flag 05/13/2019 08:18:00 HEMATOCRIT See notes. % 42.0-54.0 L 05/13/2019 08:18:00 MEAN CELL VOLUME See notes. fl 80-96 H 05/13/2019 08:18:00 MEAN CORPUSCULAR HEMOGLOB See notes. pg 27.0-31.0 H 05/13/2019 08:18:00 MEAN CORPUSCULAR HGB CONC See notes. g/dl 32.0-36.0 No Flag 05/13/2019 08:18:00 RED CELL DISTRIBUTION WID See notes. % 10.0- 14.5 No Flag 05/13/2019 08:18:00 PLATELET COUNT See notes. K/mm3 172-450 L 05/13/2019 08:18:00 MEAN PLATELET VOLUME See notes. fl 9.0-13.0 No Flag 05/13/2019 08:18:00 GRAN % See notes. % 50-8 0.0 L 05/13/2019 08:18:00 IG% See notes. % 0.0-0.2 No Flag 05/13/2019 08:18:00 LYMPH % See notes. % 25. 0-50.0 No Flag 05/13/2019 08:18:00 MONO % See notes. % 2.0- 10.0 No Flag 05/13/2019 08:18:00 EOS % See notes. % 0-5.0 H 05/13/2019 08:18:00 BASO % See notes. % 0.0- 2.0 No Flag 05/13/2019 08:18:00 GRAN # See notes. K/mm3 2.0-8.00 L 05/13/2019 08:18:00 IG# See notes. K/mm3 0.0 -0.2 No Flag 05/13/2019 08:18:00 LYMPH # See notes. K/mm3 1.0-5.0 No Flag 05/13/2019 08:18:00 MONO # See notes. K/mm3 0.10-1.20 No Flag 05/13/2019 08:18:00 EOS # See notes. K/mm3 0 .0-0.5 No Flag 05/13/2019 08:18:00 BASO # See notes. K/mm3 0.0-0.2 No Flag 05/13/2019 08:18:00 WHITE BLOOD COUNT 2.7 K/mm3 4.0-10.0 L 05/13/2019 08:18:00 RED BLOOD COUNT 4.20 M/mm3 4.50-6.00 L 05/13/2019 08:18:00 HEMOGLOBIN 14.2 gm/dL 14 .0-18.0 No Flag 05/13/2019 08:18:00 HEMATOCRIT 41.3 % 42.0-5 4.0 L 05/13/2019 08:18:00 MEAN CELL VOLUME 98.3 fl 80-96 H 05/13/2019 08:18:00 MEAN CORPUSCULAR HEMOGLOB 33.8 pg 27.0-31.0 H 05/13/2019 08:18:00 MEAN CORPUSCULAR HGB CONC 34.4 g/dl 32.0- 36.0 No Flag 05/13/2019 08:18:00 RED CELL DISTRIBUTION WID 12.6 % 10.0-14.5 No Flag 05/13/2019 08:18:00 PLATELET COUNT 152 K/mm3 172-450 L 05/13/2019 08:18:00 MEAN PLATELET VOLUME 9.1 fl 9.0-13.0 No Flag 05/13/2019 08:18:00 GRAN % 38.6 % 50-80.0 L 05/13/2019 08:18:00 IG% 0.0 % 0.0-0.2 No Flag 05/13/2019 08:18:00 LYMPH % 38.2 % 25.0-50.0 No Flag 05/13/2019 08:18:00 MONO % 12.0 % 2.0-10.0 H 05/13/2019 08:18:00 EOS % 10.5 % 0-5.0 H 05/13/2019 08:18:00 BASO % 0.7 % 0.0-2.0 No Flag 05/13/2019 08:18:00 GRAN # 1.0 K/mm3 2.0-8.00 L 05/13/2019 08:18:00 IG# 0.0 K/mm3 0.0-0.2 No Flag 05/13/2019 08:18:00 LYMPH # 1.0 K/mm3 1.0-5.0 No Flag 05/13/2019 08:18:00 MONO # 0.3 K/mm3 0.10-1. 20 No Flag 05/13/2019 08:18:00 EOS # 0.3 K/mm3 0.0-0.5 No Flag 05/13/2019 08:18:00 BASO # 0.0 K/mm3 0.0-0.2 No Flag 05/13/2019 08:18:00 VITAMIN D, 25-HYDROXY 20.8 ng/mL 30.0-100.0 L 07/10/2018 06:08:00 CHOLESTEROL 172 mg/dL 0- 200 No Flag 07/09/2018 08:27:00 TRIGLYCERIDES 71 mg/dL 0 -150 No Flag 07/09/2018 08:27:00 LDL CHOLESTEROL 81 mg/dL 0-100 No Flag 07/09/2018 08:27:00 HDL CHOLESTEROL 77 mg/dL 40-60 H 07/09/2018 08:27:00 CHOL/HDL RATIO 2.2 0.0- 5.0 No Flag 07/09/2018 08:27:00 TSH 2.55 uIU/mL 0.36-3.7 No Flag 07/09/2018 08:12:00 URINE MICROALBUMIN 30.8 mg/L 1.3-20.0 H 07/09/2018 07:54:00 URINE CREATININE 212.2 mg/dL -- No Flag 07/09/2018 07:54:00 MICROALBUMIN/CREATININE R 14 ug/mg -- No Flag 07/09/2018 07:54:00 WHITE BLOOD COUNT 4.4 K/mm3 4.0-10.0 No Flag 07/09/2018 07:31:00 RED BLOOD COUNT 4.56 M/mm3 4.50-6.00 No Flag 07/09/2018 07:31:00 HEMOGLOBIN 15.3 gm/dL 14 .0-18.0 No Flag 07/09/2018 07:31:00 HEMATOCRIT 44.3 % 42.0-5 4.0 No Flag 07/09/2018 07:31:00 MEAN CELL VOLUME 97.1 fl 80-96 H 07/09/2018 07:31:00 MEAN CORPUSCULAR HEMOGLOB 33.6 pg 27.0-31.0 H 07/09/2018 07:31:00 MEAN CORPUSCULAR HGB CONC 34.5 g/dl 32.0- 36.0 No Flag 07/09/2018 07:31:00 RED CELL DISTRIBUTION WID 12.8 % 10.0-14.5 No Flag 07/09/2018 07:31:00 PLATELET COUNT 181 K/mm3 172-450 No Flag 07/09/2018 07:31:00 MEAN PLATELET VOLUME 9.2 fl 9.0-13.0 No Flag 07/09/2018 07:31:00 GRAN % 56.9 % 50-80.0 No Flag 07/09/2018 07:31:00 IG% 0.0 % 0.0-0.2 No Flag 07/09/2018 07:31:00 LYMPH % 29.1 % 25.0-50.0 No Flag 07/09/2018 07:31:00 MONO % 8.8 % 2.0-10.0 No Flag 07/09/2018 07:31:00 EOS % 4.3 % 0-5.0 No Flag 07/09/2018 07:31:00 BASO % 0.9 % 0.0-2.0 No Flag 07/09/2018 07:31:00 GRAN # 2.5 K/mm3 2.0-8.00 No Flag 07/09/2018 07:31:00 IG# 0.0 K/mm3 0.0-0.2 No Flag 07/09/2018 07:31:00 LYMPH # 1.3 K/mm3 1.0-5.0 No Flag 07/09/2018 07:31:00 MONO # 0.4 K/mm3 0.10-1. 20 No Flag 07/09/2018 07:31:00 EOS # 0.2 K/mm3 0.0-0.5 No Flag 07/09/2018 07:31:00 BASO # 0.0 K/mm3 0.0-0.2 No Flag 07/09/2018 07:31:00 WHITE BLOOD COUNT 6.2 K/mm3 4.0-10.0 No Flag 02/07/2018 09:07:00 RED BLOOD COUNT 4.57 M/mm3 4.50-6.00 No Flag 02/07/2018 09:07:00 HEMOGLOBIN 15.3 gm/dL 14 .0-18.0 No Flag 02/07/2018 09:07:00 HEMATOCRIT 44.9 % 42.0-5 4.0 No Flag 02/07/2018 09:07:00 MEAN CELL VOLUME 98.2 fl 80-96 H 02/07/2018 09:07:00 MEAN CORPUSCULAR HEMOGLOB 33.5 pg 27.0-31.0 H 02/07/2018 09:07:00 MEAN CORPUSCULAR HGB CONC 34.1 g/dl 32.0- 36.0 No Flag 02/07/2018 09:07:00 RED CELL DISTRIBUTION WID 12.5 % 10.0-14.5 No Flag 02/07/2018 09:07:00 PLATELET COUNT 172 K/mm3 172-450 No Flag 02/07/2018 09:07:00 MEAN PLATELET VOLUME 9.3 fl 9.0-13.0 No Flag 02/07/2018 09:07:00 GRAN % 63.7 % 50-80.0 No Flag 02/07/2018 09:07:00 IG% 0.2 % 0.0-0.2 No Flag 02/07/2018 09:07:00 LYMPH % 23.4 % 25.0-50.0 L 02/07/2018 09:07:00 MONO % 8.7 % 2.0-10.0 No Flag 02/07/2018 09:07:00 EOS % 3.5 % 0-5.0 No Flag 02/07/2018 09:07:00 BASO % 0.5 % 0.0-2.0 No Flag 02/07/2018 09:07:00 GRAN # 4.0 K/mm3 2.0-8.00 No Flag 02/07/2018 09:07:00 IG# 0.0 K/mm3 0.0-0.2 No Flag 02/07/2018 09:07:00 LYMPH # 1.5 K/mm3 1.0-5.0 No Flag 02/07/2018 09:07:00 MONO # 0.5 K/mm3 0.10-1. 20 No Flag 02/07/2018 09:07:00 EOS # 0.2 K/mm3 0.0-0.5 No Flag 02/07/2018 09:07:00 BASO # 0.0 K/mm3 0.0-0.2 No Flag 02/07/2018 09:07:00 URINE MICROALBUMIN 11.4 mg/L 1.3-20.0 No Flag 12/31/2017 08:40:00 URINE CREATININE 136.2 mg/dL -- No Flag 12/31/2017 08:40:00 MICROALBUMIN/CREATININE R 8 ug/mg -- No Flag 12/31/2017 08:40:00 CHOLESTEROL 232 mg/dL 0- 200 H 12/31/2017 08:40:00 TRIGLYCERIDES 53 mg/dL 0 -150 No Flag 12/31/2017 08:40:00 LDL CHOLESTEROL 128 mg/dL 0-100 H 12/31/2017 08:40:00 HDL CHOLESTEROL 93 mg/dL 40-60 H 12/31/2017 08:40:00 CHOL/HDL RATIO 2.5 0.0- 5.0 No Flag 12/31/2017 08:40:00 WHITE BLOOD COUNT See notes. K/mm3 4.0-10.0 L 12/31/2017 08:19:00 RED BLOOD COUNT See notes. M/mm3 4.50-6.00 L 12/31/2017 08:19:00 HEMOGLOBIN See notes. gm/dL 14.0-18.0 L 12/31/2017 08:19:00 HEMATOCRIT See notes. % 42.0-54.0 L 12/31/2017 08:19:00 MEAN CELL VOLUME See notes. fl 80-96 *H 12/31/2017 08:19:00 MEAN CORPUSCULAR HEMOGLOB See notes. pg 27.0-31.0 H 12/31/2017 08:19:00 MEAN CORPUSCULAR HGB CONC See notes. g/dl 32.0-36.0 No Flag 12/31/2017 08:19:00 RED CELL DISTRIBUTION WID See notes. % 10.0- 14.5 No Flag 12/31/2017 08:19:00 PLATELET COUNT See notes. K/mm3 172-450 No Flag 12/31/2017 08:19:00 MEAN PLATELET VOLUME See notes. fl 9.0-13.0 No Flag 12/31/2017 08:19:00 GRAN % See notes. % 50-8 0.0 L 12/31/2017 08:19:00 LYMPH % See notes. % 25. 0-50.0 No Flag 12/31/2017 08:19:00 MONO % See notes. % 2.0- 10.0 H 12/31/2017 08:19:00 EOS % See notes. % 0-5.0 H 12/31/2017 08:19:00 BASO % See notes. % 0.0- 2.0 No Flag 12/31/2017 08:19:00 GRAN # See notes. K/mm3 2.0-8.00 L 12/31/2017 08:19:00 LYMPH # See notes. K/mm3 1.0-5.0 No Flag 12/31/2017 08:19:00 MONO # See notes. K/mm3 0.10-1.20 No Flag 12/31/2017 08:19:00 EOS # See notes. K/mm3 0 .0-0.5 No Flag 12/31/2017 08:19:00 BASO # See notes. K/mm3 0.0-0.2 No Flag 12/31/2017 08:19:00 WHITE BLOOD COUNT 3.1 K/mm3 4.0-10.0 L 12/31/2017 08:19:00 RED BLOOD COUNT 4.14 M/mm3 4.50-6.00 L 12/31/2017 08:19:00 HEMOGLOBIN 13.9 gm/dL 14 .0-18.0 L 12/31/2017 08:19:00 HEMATOCRIT 41.6 % 42.0-5 4.0 L 12/31/2017 08:19:00 MEAN CELL VOLUME 100.5 fl 80-96 *H 12/31/2017 08:19:00 MEAN CORPUSCULAR HEMOGLOB 33.6 pg 27.0-31.0 H 12/31/2017 08:19:00 MEAN CORPUSCULAR HGB CONC 33.4 g/dl 32.0- 36.0 No Flag 12/31/2017 08:19:00 RED CELL DISTRIBUTION WID 13.4 % 10.0-14.5 No Flag 12/31/2017 08:19:00 PLATELET COUNT 170 K/mm3 172-450 L 12/31/2017 08:19:00 MEAN PLATELET VOLUME 9.5 fl 9.0-13.0 No Flag 12/31/2017 08:19:00 GRAN % 44.3 % 50-80.0 L 12/31/2017 08:19:00 LYMPH % 37.5 % 25.0-50.0 No Flag 12/31/2017 08:19:00 MONO % 11.7 % 2.0-10.0 H 12/31/2017 08:19:00 EOS % 5.5 % 0-5.0 H 12/31/2017 08:19:00 BASO % 1.0 % 0.0-2.0 No Flag 12/31/2017 08:19:00 GRAN # 1.4 K/mm3 2.0-8.00 L 12/31/2017 08:19:00 LYMPH # 1.2 K/mm3 1.0-5.0 No Flag 12/31/2017 08:19:00 MONO # 0.4 K/mm3 0.10-1. 20 No Flag 12/31/2017 08:19:00 EOS # 0.2 K/mm3 0.0-0.5 No Flag 12/31/2017 08:19:00 BASO # 0.0 K/mm3 0.0-0.2 No Flag 12/31/2017 08:19:00 GLOMERULAR FILTRATION RAT 65 mL/min -- No Flag 07/08/2017 07:55:00 GLUCOSE 172 mg/dL 74-106 H 07/08/2017 07:55:00 BLOOD UREA NITROGEN 20 mg/dL 7-18 H 07/08/2017 07:55:00 CREATININE 1.1 mg/dL 0.7 -1.3 No Flag 07/08/2017 07:55:00 SODIUM 142 mmol/L 136-145 No Flag 07/08/2017 07:55:00 POTASSIUM 4.3 mmol/L 3.5 -5.1 No Flag 07/08/2017 07:55:00 CHLORIDE 105 mmol/L 98-1 07 No Flag 07/08/2017 07:55:00 CO2 26 mmol/L 23-34 No Flag 07/08/2017 07:55:00 CALCIUM 8.7 mg/dL 8.5-10 .1 No Flag 07/08/2017 07:55:00 ALBUMIN 3.6 gm/dL 3.4-5.0 No Flag 07/08/2017 07:55:00 PHOSPHOROUS 3.8 mg/dL 2. 5-4.9 No Flag 07/08/2017 07:55:00 AST 40 U/L 15-37 H 07/08/2017 07:55:00 ALT 48 U/L 12-78 No Flag 07/08/2017 07:55:00 ALKALINE PHOSPHATASE 99 U/L 20-150 No Flag 07/08/2017 07:55:00 TOTAL BILIRUBIN 0.8 mg/dL 0.2-1.0 No Flag 07/08/2017 07:55:00 DIRECT BILIRUBIN 0.21 mg/dL 0-0.2 H 07/08/2017 07:55:00 TOTAL PROTEIN 6.8 g/dl 6 .4-8.2 No Flag 07/08/2017 07:55:00 WHITE BLOOD COUNT 3.8 K/mm3 4.0-10.0 L 07/08/2017 07:26:00 RED BLOOD COUNT 4.38 M/mm3 4.50-6.00 L 07/08/2017 07:26:00 HEMOGLOBIN 14.6 gm/dL 14 .0-18.0 No Flag 07/08/2017 07:26:00 HEMATOCRIT 42.8 % 42.0-5 4.0 No Flag 07/08/2017 07:26:00 MEAN CELL VOLUME 97.7 fl 80-96 H 07/08/2017 07:26:00 MEAN CORPUSCULAR HEMOGLOB 33.3 pg 27.0-31.0 H 07/08/2017 07:26:00 MEAN CORPUSCULAR HGB CONC 34.1 g/dl 32.0- 36.0 No Flag 07/08/2017 07:26:00 RED CELL DISTRIBUTION WID 13.6 % 10.0-14.5 No Flag 07/08/2017 07:26:00 PLATELET COUNT 159 K/mm3 172-450 L 07/08/2017 07:26:00 AST 22 U/L 15-37 No Flag 06/04/2017 07:53:00 ALT 28 U/L 12-78 No Flag 06/04/2017 07:53:00 ALKALINE PHOSPHATASE 113 U/L 20-150 No Flag 06/04/2017 07:53:00 TOTAL BILIRUBIN 0.6 mg/dL 0.2-1.0 No Flag 06/04/2017 07:53:00 DIRECT BILIRUBIN 0.16 mg/dL 0-0.2 No Flag 06/04/2017 07:53:00 TOTAL PROTEIN 7.1 g/dl 6 .4-8.2 No Flag 06/04/2017 07:53:00 BLOOD UREA NITROGEN 20 mg/dL 7-18 H 06/04/2017 07:53:00 CREATININE 1.2 mg/dL 0.7 -1.3 No Flag 06/04/2017 07:53:00 SODIUM 143 mmol/L 136-145 No Flag 06/04/2017 07:53:00 POTASSIUM 4.4 mmol/L 3.5 -5.1 No Flag 06/04/2017 07:53:00 CHLORIDE 106 mmol/L 98-1 07 No Flag 06/04/2017 07:53:00 CO2 27 mmol/L 23-34 No Flag 06/04/2017 07:53:00 CALCIUM 9.1 mg/dL 8.5-10 .1 No Flag 06/04/2017 07:53:00 ALBUMIN 3.9 gm/dL 3.4-5.0 No Flag 06/04/2017 07:53:00 PHOSPHOROUS 3.6 mg/dL 2. 5-4.9 No Flag 06/04/2017 07:53:00 GLOMERULAR FILTRATION RAT 59 mL/min -- No Flag 06/04/2017 07:53:00 GLUCOSE 161 mg/dL 74-106 H 06/04/2017 07:53:00 HEMOGLOBIN 15.8 gm/dL 14 .0-18.0 No Flag 06/04/2017 07:30:00 MEAN CELL VOLUME 98.1 fl 80-96 H 06/04/2017 07:30:00 MEAN CORPUSCULAR HEMOGLOB 33.9 pg 27.0-31.0 H 06/04/2017 07:30:00 RED CELL DISTRIBUTION WID 13.5 % 10.0-14.5 No Flag 06/04/2017 07:30:00 PLATELET COUNT 172 K/mm3 172-450 No Flag 06/04/2017 07:30:00 WHITE BLOOD COUNT 4.8 K/mm3 4.0-10.0 No Flag 06/04/2017 07:30:00 RED BLOOD COUNT 4.66 M/mm3 4.50-6.00 No Flag 06/04/2017 07:30:00 HEMATOCRIT 45.7 % 42.0-5 4.0 No Flag 06/04/2017 07:30:00 MEAN CORPUSCULAR HGB CONC 34.6 g/dl 32.0- 36.0 No Flag 06/04/2017 07:30:00 VITAMIN D, 25-HYDROXY 19.4 ng/mL 30.0-100.0 L 08/28/2016 08:17:00 PSA DIAGNOSIS 0.75 ng/mL 0.0-4.0 No Flag 08/27/2016 08:25:00 CHOLESTEROL 164 mg/dL 0- 200 No Flag 08/27/2016 08:18:00 TRIGLYCERIDES 56 mg/dL 0 -150 No Flag 08/27/2016 08:18:00 LDL CHOLESTEROL 63 mg/dL 0-100 No Flag 08/27/2016 08:18:00 HDL CHOLESTEROL 90 mg/dL >40 No Flag 08/27/2016 08:18:00 CHOL/HDL RATIO 1.8 0.0- 5.0 No Flag 08/27/2016 08:18:00 URINE MICROALBUMIN 14.4 mg/L 1.3-20.0 No Flag 08/27/2016 07:49:00 URINE CREATININE 181.4 mg/dL -- No Flag 08/27/2016 07:49:00 MICROALBUMIN/CREATININE R 7 ug/mg -- No Flag 08/27/2016 07:49:00 C REACTIVE PROTEIN 5.3 mg/L 0.0-5.0 H 01/17/2016 15:57:00 CHOLESTEROL 227 mg/dL 0- 200 H 01/17/2016 15:15:00 TRIGLYCERIDES 54 mg/dL 0 -150 No Flag 01/17/2016 15:15:00 LDL CHOLESTEROL 120 mg/dL 0-100 H 01/17/2016 15:15:00 HDL CHOLESTEROL 96 mg/dL >40 No Flag 01/17/2016 15:15:00 CHOL/HDL RATIO 2.4 0.0- 5.0 No Flag 01/17/2016 15:15:00 URINE MICROALBUMIN 5.2 mg/L 1.3-20.0 No Flag 01/17/2016 14:51:00 URINE CREATININE 95.6 mg/dL -- No Flag 01/17/2016 14:51:00 MICROALBUMIN/CREATININE R 5 ug/mg -- No Flag 01/17/2016 14:51:00 WHITE BLOOD COUNT 5.7 K/mm3 4.0-10.0 No Flag 01/17/2016 14:36:00 RED BLOOD COUNT 4.27 M/mm3 4.50-6.00 L 01/17/2016 14:36:00 HEMOGLOBIN 14.3 gm/dL 14 .0-18.0 No Flag 01/17/2016 14:36:00 HEMATOCRIT 41.1 % 42.0-5 4.0 L 01/17/2016 14:36:00 MEAN CELL VOLUME 96.3 fl 80-96 H 01/17/2016 14:36:00 MEAN CORPUSCULAR HEMOGLOB 33.5 pg 27.0-31.0 H 01/17/2016 14:36:00 MEAN CORPUSCULAR HGB CONC 34.8 g/dl 32.0- 36.0 No Flag 01/17/2016 14:36:00 RED CELL DISTRIBUTION WID 13.0 % 10.0-14.5 No Flag 01/17/2016 14:36:00 PLATELET COUNT 173 K/mm3 172-450 No Flag 01/17/2016 14:36:00 MEAN PLATELET VOLUME 9.2 fl 9.0-13.0 No Flag 01/17/2016 14:36:00 GRAN % 64.2 % 50-80.0 No Flag 01/17/2016 14:36:00 LYMPH % 22.0 % 25.0-50.0 L 01/17/2016 14:36:00 MONO % 9.2 % 2.0-10.0 No Flag 01/17/2016 14:36:00 EOS % 3.9 % 0-5.0 No Flag 01/17/2016 14:36:00 BASO % 0.7 % 0.0-2.0 No Flag 01/17/2016 14:36:00 GRAN # 3.6 2.0-8.00 No Flag 01/17/2016 14:36:00 LYMPH # 1.3 1.0-5.0 No Flag 01/17/2016 14:36:00 MONO # 0.5 0.10-1.20 No Flag 01/17/2016 14:36:00 EOS # 0.2 0.0-0.5 No Flag 01/17/2016 14:36:00 BASO # 0.0 K/mm3 0.0-0.2 No Flag 01/17/2016 14:36:00 GLOMERULAR FILTRATION RAT 54 mL/min -- No Flag 06/05/2015 18:02:00 GLUCOSE 75 mg/dL 74-106 No Flag 06/05/2015 18:02:00 BLOOD UREA NITROGEN 35 mg/dL 7-18 H 06/05/2015 18:02:00 CREATININE 1.3 mg/dL 0.6 -1.3 No Flag 06/05/2015 18:02:00 SODIUM 138 mmol/L 136-145 No Flag 06/05/2015 18:02:00 POTASSIUM 4.4 mmol/L 3.5 -5.1 No Flag 06/05/2015 18:02:00 CHLORIDE 102 mmol/L 98-1 07 No Flag 06/05/2015 18:02:00 CO2 26 mmol/L 23-34 No Flag 06/05/2015 18:02:00 CALCIUM 9.3 mg/dL 8.5-10 .1 No Flag 06/05/2015 18:02:00 ANION GAP 10.0 mmol/L 5- 12 No Flag 06/05/2015 18:02:00 POTASSIUM SERUM 5.2 MEQ/L 3.5-5.1 H 05/15/2015 18:21:00 GLOMERULAR FILTRATION RATE 54.8 >42 No Flag 05/15/2015 18:21:00 GLUCOSE, FASTING 167 MG/DL 83-110 H 05/15/2015 18:21:00 BLOOD UREA NITROGEN 33 MG/DL 7-18 H 05/15/2015 18:21:00 CREATININE FOR GFR 1.36 MG/DL 0.70-1.30 H 05/15/2015 18:21:00 SODIUM LEVEL 136 MEQ/L 1 36-145 No Flag 05/15/2015 18:21:00 CHLORIDE LEVEL 104 MEQ/L 98-107 No Flag 05/15/2015 18:21:00 CARBON DIOXIDE LEVEL 22 MEQ/L 21-32 No Flag 05/15/2015 18:21:00 ANION GAP 10 MEQ/L 8-16 No Flag 05/15/2015 18:21:00 CALCIUM LEVEL 9.4 MG/DL 8.8-10.2 No Flag 05/15/2015 18:21:00 MAGNESIUM LEVEL 2.0 MG/DL 1.8-2.4 No Flag 05/15/2015 18:21:00 THYROID STIMULATING HORMONE 1.470 uIU/ML 0.358-3.740 No Flag 05/15/2015 18:21:00 WHITE BLOOD COUNT 5.1 K/mm3 5.0-10.0 No Flag 01/30/2015 18:14:00 RED BLOOD COUNT 4.78 M/mm3 4.70-6.10 No Flag 01/30/2015 18:14:00 HEMOGLOBIN 15.4 g/dl 14. 0-18.0 No Flag 01/30/2015 18:14:00 HEMATOCRIT 46.0 % 42.0-5 2.0 No Flag 01/30/2015 18:14:00 MEAN CORPUSCULAR VOLUME 96.4 fl 80.0-96.0 H 01/30/2015 18:14:00 MEAN CORPUSCULAR HEMOGLOBIN 32.3 pg 27.0- 33.0 No Flag 01/30/2015 18:14:00 MEAN CORPUSCULAR HGB CONC 33.5 g/dl 32.0- 36.5 No Flag 01/30/2015 18:14:00 RED CELL DISTRIBUTION WIDTH 13.6 % 11.5-14.5 No Flag 01/30/2015 18:14:00 PLATELET COUNT, AUTOMATED 192 k/mm3 172-450 No Flag 01/30/2015 18:14:00 NEUTROPHILS % 57.4 % 36. 0-66.0 No Flag 01/30/2015 18:14:00 LYMPH % 26.0 % 24.0-44.0 No Flag 01/30/2015 18:14:00 MONO % 5.9 % 0.0-5.0 H 01/30/2015 18:14:00 EOS % 7.2 % 0.0-3.0 H 01/30/2015 18:14:00 BASO % 0.8 % 0.0-1.0 No Flag 01/30/2015 18:14:00 LARGE UNSTAINED CELL % 2.6 % 0.0-4.0 No Flag 01/30/2015 18:14:00 NEUTROPHILS # 2.9 K/mm3 1.8-7.7 No Flag 01/30/2015 18:14:00 LYMPH # 1.5 K/mm3 1.5-4.5 No Flag 01/30/2015 18:14:00 MONO # 0.3 K/mm3 0.0-0.8 No Flag 01/30/2015 18:14:00 EOS # 0.4 K/mm3 0.0-0.50 No Flag 01/30/2015 18:14:00 BASO # 0.0 K/mm3 0.0-0.2 No Flag 01/30/2015 18:14:00 LARGE UNSTAINED CELL # 0.1 K/mm3 0.0-0.4 No Flag 01/30/2015 18:14:00 GLOMERULAR FILTRATION RATE > 60.0 >42 No Flag 01/30/2015 17:36:00 GLUCOSE, FASTING 172 MG/DL 83-110 H 01/30/2015 17:36:00 BLOOD UREA NITROGEN 27 MG/DL 7-18 H 01/30/2015 17:36:00 CREATININE FOR GFR 1.23 MG/DL 0.70-1.30 No Flag 01/30/2015 17:36:00 SODIUM LEVEL 137 MEQ/L 1 36-145 No Flag 01/30/2015 17:36:00 POTASSIUM SERUM 4.8 MEQ/L 3.5-5.1 No Flag 01/30/2015 17:36:00 CHLORIDE LEVEL 106 MEQ/L 98-107 No Flag 01/30/2015 17:36:00 CARBON DIOXIDE LEVEL 24 MEQ/L 21-32 No Flag 01/30/2015 17:36:00 ANION GAP 7 MEQ/L 8-16 L 01/30/2015 17:36:00 CALCIUM LEVEL 9.3 MG/DL 8.8-10.2 No Flag 01/30/2015 17:36:00 PSA DIAGNOSIS 0.7 ng/mL 0.0-4.0 No Flag 12/09/2014 16:46:00 CHOLESTEROL 184 mg/dL 0- 200 No Flag 12/09/2014 16:04:00 TRIGLYCERIDES 102 mg/dL 0-150 No Flag 12/09/2014 16:04:00 LDL CHOLESTEROL 91 mg/dL 0-100 No Flag 12/09/2014 16:04:00 HDL CHOLESTEROL 73 mg/dL >40 No Flag 12/09/2014 16:04:00 CHOL/HDL RATIO 2.5 0.0- 5.0 No Flag 12/09/2014 16:04:00 URINE MICROALBUMIN 18.4 mg/L 1.3-20.0 No Flag 12/09/2014 14:28:00 URINE CREATININE 89.6 mg/dL -- No Flag 12/09/2014 14:28:00 MICROALBUMIN/CREATININE R 20 ug/mg -- No Flag 12/09/2014 14:28:00 WHITE BLOOD COUNT 4.9 K/mm3 4.0-10.0 No Flag 12/09/2014 14:04:00 RED BLOOD COUNT 4.33 M/mm3 4.50-6.00 L 12/09/2014 14:04:00 HEMOGLOBIN 14.2 gm/dL 14 .0-18.0 No Flag 12/09/2014 14:04:00 HEMATOCRIT 41.4 % 42.0-5 4.0 L 12/09/2014 14:04:00 MEAN CELL VOLUME 95.6 fl 80-96 No Flag 12/09/2014 14:04:00 MEAN CORPUSCULAR HEMOGLOB 32.8 pg 27.0-31.0 H 12/09/2014 14:04:00 MEAN CORPUSCULAR HGB CONC 34.3 g/dl 32.0- 36.0 No Flag 12/09/2014 14:04:00 RED CELL DISTRIBUTION WID 12.7 % 10.0-14.5 No Flag 12/09/2014 14:04:00 PLATELET COUNT 174 K/mm3 172-450 No Flag 12/09/2014 14:04:00 MEAN PLATELET VOLUME 9.3 fl 9.0-13.0 No Flag 12/09/2014 14:04:00 GRAN % 53.8 % 50-80.0 No Flag 12/09/2014 14:04:00 LYMPH % 25.4 % 25.0-50.0 No Flag 12/09/2014 14:04:00 MONO % 8.9 % 2.0-10.0 No Flag 12/09/2014 14:04:00 EOS % 10.9 % 0-5.0 H 12/09/2014 14:04:00 BASO % 1.0 % 0.0-2.0 No Flag 12/09/2014 14:04:00 GRAN # 2.6 2.0-8.00 No Flag 12/09/2014 14:04:00 LYMPH # 1.2 1.0-5.0 No Flag 12/09/2014 14:04:00 MONO # 0.4 -- No Flag 12/09/2014 14:04:00 EOS # 0.5 0.0-0.5 No Flag 12/09/2014 14:04:00 BASO # 0.1 K/mm3 0.0-0.4 No Flag 12/09/2014 14:04:00 GLOMERULAR FILTRATION RAT 54 mL/min -- No Flag 08/18/2014 09:02:00 GLUCOSE 111 mg/dL 64-112 No Flag 08/18/2014 09:02:00 BLOOD UREA NITROGEN 21 mg/dL 7-18 H 08/18/2014 09:02:00 CREATININE 1.3 mg/dL 0.6 -1.3 No Flag 08/18/2014 09:02:00 SODIUM 143 mmol/L 136-145 No Flag 08/18/2014 09:02:00 POTASSIUM 3.8 mmol/L 3.5 -5.1 No Flag 08/18/2014 09:02:00 CHLORIDE 104 mmol/L 98-1 07 No Flag 08/18/2014 09:02:00 CO2 29 mmol/L 23-34 No Flag 08/18/2014 09:02:00 CALCIUM 9.0 mg/dL 8.5-10 .5 No Flag 08/18/2014 09:02:00 ANION GAP 10.0 mmol/L 5- 12 No Flag 08/18/2014 09:02:00 SOCIAL HISTORY Social History Observation Description Dates Observed Smoking Status Former smoker, [CHERYL D-CT: [id number]], 5.00 pk yrs/30.00 yrs quit 05/30/2014 - 05/30/2014 TREATMENT PLAN Encounter Date [facility] 11/20/2020 09:55:18 He does have on intermediate predictor of perioperative risk in his diabetes. But that has been well controlled. 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 He is free of cardiovascular s/s. His functional capacity is 6-8 mets. Recents labs with slight anemia. His chronic medical issues would be considered optimized for him to pursue his proposed low risk cataract surgery. He will require an IV D5NS due to his diabetes. He will be NPO the morning of surgery and should be able to resume his meds when discharged. ORDERED/ADVISED: Order Date 11-20-2020 - EKG (H26.9, D53.9, E11.9, E11.21, E78.5) 11/20/2020 09:55:18 He does have on intermediate predictor of perioperative risk in his diabetes. But that has been well controlled. He has a normal EKG which is a baseline as he has never had symptoms. His functional capacity is 6-8 mets. Recents labs with slight anemia. His chronic medical issues would be considered optimized for him to pursue his proposed low risk cataract surgery. He will require an IV D5NS due to his diabetes. He will be NPO the morning of surgery and should be able to resume his meds when discharged. ORDERED/ADVISED: Order Date 11-20-2020 - EKG (H26.9, D53.9, E11.9, E11.21, E78.5) 11/20/2020 09:55:18 He does have on intermediate predictor of perioperative risk in his diabetes. But that has been well controlled. He has a normal EKG which is a baseline as he has never had symptoms. His functional capacity is 6-8 mets. Recents labs with slight anemia. His chronic medical issues would be considered optimized for him to pursue his proposed low risk cataract surgery. He will require an IV D5NS due to his diabetes. He will be NPO the morning of surgery and should be able to resume his meds when discharged. ORDERED/ADVISED: Order Date 11-20-2020 - EKG (H26.9, D53.9, E11.9, E11.21, E78.5) 11/20/2020 09:55:18 He does have on intermediate predictor of perioperative risk in his diabetes. But that has been well controlled. He has a normal EKG which is a baseline as he has never had symptoms. His functional capacity is 6-8 mets. Recents labs with slight anemia. His chronic medical issues would be considered optimized for him to pursue his proposed low risk cataract surgery. He will require an IV D5NS due to his diabetes. He will be NPO the morning of surgery and should be able to resume his meds when discharged. ORDERED/ADVISED: Order Date 11-20-2020 - EKG (H26.9, D53.9, E11.9, E11.21, E78.5) 10/30/2020 08:25:19 Plan printed and provided to patient: PRESCRIBE: primidone 50 mg oral tablet, one po hs daily for tremor, # 90, RF: 3. (Transmitted by Debbie Morse, ) PRESCRIBE: OneTouch Ultra Blue In Vitro Strip, use as directed tid ac for insulin dosing Dx E11.9, # 270, RF: 3. (Transmitted by Debbie Morse, DO) PRESCRIBE: metFORMIN 500 mg oral tablet, extended release, three po daily in am, # 270, RF: 3. (Transmitted by Debbie Morse, DO) PRESCRIBE: losartan 25 mg oral tablet, one po daily, # 90, RF: 3. (Transmitted by Debbie Morse, DO) PRESCRIBE: atorvastatin 20 mg oral tablet, one po daily, # 90, RF: 3. (Transmit vianney by Debbie Morse DO) REMOVED from Current Meds: Cialis 20 mg oral tablet, one half po as directed no more often than every three days, # 5, RF: 3. (Transmitted by Debbie Morse DO) Date Prescribed: 10/01/2019 REMOVED from Current Meds: Viagra 100 mg oral tablet, use as directed, # 0, RF: 0. Date Prescribed: 11/06/2018 ADDED Current Meds: Ozempic (1 mg dose) 4 mg/3 mL subcutaneous solution, one dose weekly, # 0, RF: 0. REMOVED from Current Meds: Ozempic (0.25 mg or 0.5 mg dose) 2 mg/1.5 mL subcutaneous solution, one dose weekly, # 0, RF: 0. Date Prescribed: 09/21/2018 REMOVED from Current Meds: Jardiance 10 mg oral tablet, one po daily in am, # 90, RF: 3. (Transmitted by Debbie Morse DO) Date Prescribed: 10/01/2019 REMOVED from Current Meds: ergocalciferol 50,000 intl units (1.25 mg) oral capsule, one po weekly, # 12, RF: 1. (Transmitted by Debbie Morse DO) Date Prescribed: 10/01/2019 PROVIDED HM: Recommendations for Testing HgbA1C in Individuals with Diabetes Mellitus Given: 6.3% PROVIDED HM: High Blood Pressure in Adults: Screening Given: 148/84 PROVIDED VACCINATION: (Given Elsewhere) COVID-19, has had both doses. apr 20 PROVIDED HM: Screening for Depression in Adults Given: Neg PROVIDED HM: Tobacco use counseling and interventions: non- adults Given: NI ORDERED/ADVISED: Order Date 10-30-2020 - CMP (Complete Metabolic Panel) (H26.9, I25.10, E11.21, Z00.00, E78.49, I10) - CBC with diff (automated) (H26.9, I25.10, E11.21, Z00.00, E78.49, I10) - Lipid Panel (H26.9, I25.10, E11.21, Z00.00, E78.49, I10) - Magnesium Level (H26.9, I25.10, E11.21, Z00.00, E78.49, I10) - Urine microalbumin (H26.9, I25.10, E11.21, Z00.00, E78.49, I10) 10/30/2020 08:25:19 Plan printed and provided to patient: PRESCRIBE: primidone 50 mg oral tablet, one po hs daily for tremor, # 90, RF: 3. (Transmitted by Debbie Morse DO) PRESCRIBE: OneTouch Ultra Blue In Vitro Strip, use as directed tid ac for insulin dosing Dx E11.9, # 270, RF: 3. (Transmitted by Debbie Morse DO) PRESCRIBE: metFORMIN 500 mg oral tablet, extended release, three po daily in am, # 270, RF: 3. (Transmitted by Debbie Morse DO) PRESCRIBE: losartan 25 mg oral tablet, one po daily, # 90, RF: 3. (Transmitted by Debbie Morse DO) PRESCRIBE: atorvastatin 20 mg oral tablet, one po daily, # 90, RF: 3. (Transmit vianney by Debbie Morse DO) REMOVED from Current Meds: Cialis 20 mg oral tablet, one half po as directed no more often than every three days, # 5, RF: 3. (Transmitted by Debbie Morse DO) Date Prescribed: 10/01/2019 REMOVED from Current Meds: Viagra 100 mg oral tablet, use as directed, # 0, RF: 0. Date Prescribed: 11/06/2018 ADDED Current Meds: Ozempic (1 mg dose) 4 mg/3 mL subcutaneous solution, one dose weekly, # 0, RF: 0. REMOVED from Current Meds: Ozempic (0.25 mg or 0.5 mg dose) 2 mg/1.5 mL subcutaneous solution, one dose weekly, # 0, RF: 0. Date Prescribed: 09/21/2018 REMOVED from Current Meds: Jardiance 10 mg oral tablet, one po daily in am, # 90, RF: 3. (Transmitted by Debbie Morse DO) Date Prescribed: 10/01/2019 REMOVED from Current Meds: ergocalciferol 50,000 intl units (1.25 mg) oral capsule, one po weekly, # 12, RF: 1. (Transmitted by Debbie Morse DO) Date Prescribed: 10/01/2019 PROVIDED HM: Recommendations for Testing HgbA1C in Individuals with Diabetes Mellitus Given: 6.3% PROVIDED HM: High Blood Pressure in Adults: Screening Given: 148/84 PROVIDED VACCINATION: (Given Elsewhere) COVID-19, has had both doses. apr 20 PROVIDED HM: Screening for Depression in Adults Given: Neg PROVIDED HM: Tobacco use counseling and interventions: non- adults Given: NI ORDERED/ADVISED: Order Date 10-30-2020 - CMP (Complete Metabolic Panel) (H26.9, I25.10, E11.21, Z00.00, E78.49, I10) - CBC with diff (automated) (H26.9, I25.10, E11.21, Z00.00, E78.49, I10) - Lipid Panel (H26.9, I25.10, E11.21, Z00.00, E78.49, I10) - Magnesium Level (H26.9, I25.10, E11.21, Z00.00, E78.49, I10) - Urine microalbumin (H26.9, I25.10, E11.21, Z00.00, E78.49, I10) 10/30/2020 08:25:19 Plan printed and provided to patient: PRESCRIBE: primidone 50 mg oral tablet, one po hs daily for tremor, # 90, RF: 3. (Transmitted by Debbie Morse DO) PRESCRIBE: OneTouch Ultra Blue In Vitro Strip, use as directed tid ac for insulin dosing Dx E11.9, # 270, RF: 3. (Transmitted by Debbie Morse DO) PRESCRIBE: metFORMIN 500 mg oral tablet, extended release, three po daily in am, # 270, RF: 3. (Transmitted by Debbie Morse DO) PRESCRIBE: losartan 25 mg oral tablet, one po daily, # 90, RF: 3. (Transmitted by Debbie Morse DO) PRESCRIBE: atorvastatin 20 mg oral tablet, one po daily, # 90, RF: 3. (Transmit vianney by Debbie Morse DO) REMOVED from Current Meds: Cialis 20 mg oral tablet, one half po as directed no more often than every three days, # 5, RF: 3. (Transmitted by Debbie Morse DO) Date Prescribed: 10/01/2019 REMOVED from Current Meds: Viagra 100 mg oral tablet, use as directed, # 0, RF: 0. Date Prescribed: 11/06/2018 ADDED Current Meds: Ozempic (1 mg dose) 4 mg/3 mL subcutaneous solution, one dose weekly, # 0, RF: 0. REMOVED from Current Meds: Ozempic (0.25 mg or 0.5 mg dose) 2 mg/1.5 mL subcutaneous solution, one dose weekly, # 0, RF: 0. Date Prescribed: 09/21/2018 REMOVED from Current Meds: Jardiance 10 mg oral tablet, one po daily in am, # 90, RF: 3. (Transmitted by Debbie De Witt, DO) Date Prescribed: 10/01/2019 REMOVED from Current Meds: ergocalciferol 50,000 intl units (1.25 mg) oral capsule, one po weekly, # 12, RF: 1. (Transmitted by [employer], [place]) Date Prescribed: 10/01/2019 PROVIDED HM: Recommendations for Testing HgbA1C in Individuals with Diabetes Mellitus Given: 6.3% PROVIDED HM: High Blood Pressure in Adults: Screening Given: 148/84 PROVIDED VACCINATION: (Given Elsewhere) COVID-19, has had both doses. apr 20 PROVIDED HM: Screening for Depression in Adults Given: Neg PROVIDED HM: Tobacco use counseling and interventions: non- adults Given: NI ORDERED/ADVISED: Order Date 10-30-2020 - CMP (Complete Metabolic Panel) (H26.9, I25.10, E11.21, Z00.00, E78.49, I10) - CBC with diff (automated) (H26.9, I25.10, E11.21, Z00.00, E78.49, I10) - Lipid Panel (H26.9, I25.10, E11.21, Z00.00, E78.49, I10) - Magnesium Level (H26.9, I25.10, E11.21, Z00.00, E78.49, I10) - Urine microalbumin (H26.9, I25.10, E11.21, Z00.00, E78.49, I10) 10/30/2020 08:25:19 Plan printed and provided to patient: PRESCRIBE: primidone 50 mg oral tablet, one po hs daily for tremor, # 90, RF: 3. (Transmitted by Debbie Morse DO) PRESCRIBE: OneTouch Ultra Blue In Vitro Strip, use as directed tid ac for insulin dosing Dx E11.9, # 270, RF: 3. (Transmitted by Debbie Morse DO) PRESCRIBE: metFORMIN 500 mg oral tablet, extended release, three po daily in am, # 270, RF: 3. (Transmitted by Debbie Morse DO) PRESCRIBE: losartan 25 mg oral tablet, one po daily, # 90, RF: 3. (Transmitted by Debbie Morse DO) PRESCRIBE: atorvastatin 20 mg oral tablet, one po daily, # 90, RF: 3. (Transmit vianney by Debbie Morse DO) REMOVED from Current Meds: Cialis 20 mg oral tablet, one half po as directed no more often than every three days, # 5, RF: 3. (Transmitted by Debbie Morse DO) Date Prescribed: 10/01/2019 REMOVED from Current Meds: Viagra 100 mg oral tablet, use as directed, # 0, RF: 0. Date Prescribed: 11/06/2018 ADDED Current Meds: Ozempic (1 mg dose) 4 mg/3 mL subcutaneous solution, one dose weekly, # 0, RF: 0. REMOVED from Current Meds: Ozempic (0.25 mg or 0.5 mg dose) 2 mg/1.5 mL subcutaneous solution, one dose weekly, # 0, RF: 0. Date Prescribed: 09/21/2018 REMOVED from Current Meds: Jardiance 10 mg oral tablet, one po daily in am, # 90, RF: 3. (Transmitted by Debbie Morse DO) Date Prescribed: 10/01/2019 REMOVED from Current Meds: ergocalciferol 50,000 intl units (1.25 mg) oral capsule, one po weekly, # 12, RF: 1. (Transmitted by Debbie Morse DO) Date Prescribed: 10/01/2019 PROVIDED HM: Recommendations for Testing HgbA1C in Individuals with Diabetes Mellitus Given: 6.3% PROVIDED HM: High Blood Pressure in Adults: Screening Given: 148/84 PROVIDED VACCINATION: (Given Elsewhere) COVID-19, has had both doses. apr 20 PROVIDED HM: Screening for Depression in Adults Given: Neg PROVIDED HM: Tobacco use counseling and interventions: non- adults Given: NI ORDERED/ADVISED: Order Date 10-30-2020 - CMP (Complete Metabolic Panel) (H26.9, I25.10, E11.21, Z00.00, E78.49, I10) - CBC with diff (automated) (H26.9, I25.10, E11.21, Z00.00, E78.49, I10) - Lipid Panel (H26.9, I25.10, E11.21, Z00.00, E78.49, I10) - Magnesium Level (H26.9, I25.10, E11.21, Z00.00, E78.49, I10) - Urine microalbumin (H26.9, I25.10, E11.21, Z00.00, E78.49, I10) 05/05/2020 08:51:19 PRESCRIBE: primidone 50 mg oral tablet, one po hs daily for tremor, # 90, RF: 1. (Transmitted by [employer], [place]) PRESCRIBE: metFORMIN 500 mg oral tablet, extended release, three po daily in am, # 270, RF: 1. (Transmitted by [employer], [place]) PRESCRIBE: HumaLOG KwikPen 100 units/mL injectable solution, 20 units with dinner, # 90, RF: 1. (Transmitted by [employer], [place]) PRESCRIBE: atorvastatin 20 mg oral tablet, one po daily, # 90, RF: 1. (Transmitted by [employer], [place]) otc vit D phone 18 min only ORDERED/ADVISED: Order Date 05-05-2020 - CBC with diff (automated) (I25.10, E11.21, E78.49, Z00.00, I10, E55.9) - CMP (Complete Metabolic Panel) (I25.10, E11.21, E78.49, Z00.00, I10, E55.9) - Lipid Panel (I25.10, E11.21, E78.49, Z00.00, I10, E55.9) - HGBA1C (I25.10, E11.21, E78.49, Z00.00, I10, E55.9) - Urine microalbumin (I25.10, E11.21, E78.49, Z00.00, I10, E55.9) 05/05/2020 08:51:19 PRESCRIBE: primidone 50 mg oral tablet, one po hs daily for tremor, # 90, RF: 1. (Transmitted by Debbie Mini, ) PRESCRIBE: metFORMIN 500 mg oral tablet, extended release, three po daily in am, # 270, RF: 1. (Transmitted by Debbie De Witt, [place]) PRESCRIBE: HumaLOG KwikPen 100 units/mL injectable solution, 20 units with dinner, # 90, RF: 1. (Transmitted by Debbie De Witt, [place]) PRESCRIBE: atorvastatin 20 mg oral tablet, one po daily, # 90, RF: 1. (Transmitted by Debbie Mini, [place]) otc vit D phone 18 min only ORDERED/ADVISED: Order Date 05-05-2020 - CBC with diff (automated) (I25.10, E11.21, E78.49, Z00.00, I10, E55.9) - CMP (Complete Metabolic Panel) (I25.10, E11.21, E78.49, Z00.00, I10, E55.9) - Lipid Panel (I25.10, E11.21, E78.49, Z00.00, I10, E55.9) - HGBA1C (I25.10, E11.21, E78.49, Z00.00, I10, E55.9) - Urine microalbumin (I25.10, E11.21, E78.49, Z00.00, I10, E55.9) 05/05/2020 08:51:19 PRESCRIBE: primidone 50 mg oral tablet, one po hs daily for tremor, # 90, RF: 1. (Transmitted by Debbie Mini, ) PRESCRIBE: metFORMIN 500 mg oral tablet, extended release, three po daily in am, # 270, RF: 1. (Transmitted by Debbie MiniDO mary) PRESCRIBE: HumaLOG KwikPen 100 units/mL injectable solution, 20 units with dinner, # 90, RF: 1. (Transmitted by Debbie Mini, ) PRESCRIBE: atorvastatin 20 mg oral tablet, one po daily, # 90, RF: 1. (Transmitted by Debbie De WittDO mary) otc vit D phone 18 min only ORDERED/ADVISED: Order Date 05-05-2020 - CBC with diff (automated) (I25.10, E11.21, E78.49, Z00.00, I10, E55.9) - CMP (Complete Metabolic Panel) (I25.10, E11.21, E78.49, Z00.00, I10, E55.9) - Lipid Panel (I25.10, E11.21, E78.49, Z00.00, I10, E55.9) - HGBA1C (I25.10, E11.21, E78.49, Z00.00, I10, E55.9) - Urine microalbumin (I25.10, E11.21, E78.49, Z00.00, I10, E55.9) 01/28/2020 09:18:14 Covid 19 symptoms and signs as well as plan of approach reviewed with patient. Urged to call us with any problems and we can advise. 16 min phone visit 01/28/2020 09:18:14 Covid 19 symptoms and signs as well as plan of approach reviewed with patient. Urged to call us with any problems and we can advise. 16 min phone visit 01/28/2020 09:18:14 Covid 19 symptoms and signs as well as plan of approach reviewed with patient. Urged to call us with any problems and we can advise. 16 min phone visit 01/07/2020 12:28:49 ORDERED/ADVISED: Order Date 01-07-2020 - Echocardiogram (antecol...in a few weeks... he is going out of town) (I35.8, R01.2) 01/07/2020 12:28:49 ORDERED/ADVISED: Order Date 01-07-2020 - Echocardiogram (antecol...in a few weeks... he is going out of town) (I35.8, R01.2) 01/07/2020 12:28:49 ORDERED/ADVISED: Order Date 01-07-2020 - Echocardiogram (antecol...in a few weeks... he is going out of town) (I35.8, R01.2) 10/01/2019 09:24:35 Plan printed and provided to patient: PRESCRIBE: Cialis 20 mg oral tablet, one half po as directed no more often than every three days, # 5, RF: 3. (Transmitted by Debbie Morse, DO) PRESCRIBE: primidone 50 mg oral tablet, one po hs daily for tremor, # 90, RF: 3. (Transmitted by Debbie Morse, DO) PRESCRIBE: metFORMIN 500 mg oral tablet, extended release, three po daily in am, # 270, RF: 3. (Transmitted by Debbie Morse, DO) PRESCRIBE: losartan 25 mg oral tablet, one po daily, # 90, RF: 3. (Transmitted by Debbie Morse, DO) PRESCRIBE: Jardiance 10 mg oral tablet, one po daily in am, # 90, RF: 3. (Transmitted by Debbie Morse, DO) PRESCRIBE: HumaLOG KwikPen 100 units/mL injectable solution, 20 units with dinner, # 90, RF: 3. (Transmitted by Debbie Morse, DO) PRESCRIBE: ergocalciferol 50,000 intl units (1.25 mg) oral capsule, one po weekly, # 12, RF: 1. (Transmitted by Debbie Morse, DO) PRESCRIBE: atorvastatin 20 mg oral tablet, one po daily, # 90, RF: 3. (Transmitted by Debbie Morse, DO) CHANGED Current Meds: Viagra 100 mg oral tablet PROVIDED HM: CDSMP Given: "the obesity code", " the diabetes code", and "quide to fasting" also "the longevity solution" by Evaristo Mark MD You can download a [employer] son to your computer and get these books on [employer]. Watch the movie "the magic pill" documentary on [employer] Also [employer] movie call " Fat" the documentary Google Evaristo Mark Podcast [employer] and watch it You can also find many you tube videos by Dr. Mark. PROVIDED HM: Screening for Depression in Adults Given: Neg PROVIDED HM: Tobacco use counseling and interventions: non- adults Given: NI ORDERED/ADVISED: Order Date 10-01-2019 hyrdroxyvitamin D (E11.9, E11.21, G25.2, E78.49, Z00.00, I10) - CBC with diff (automated) (E11.9, E11.21, G25.2, E78.49, Z00.00, I10) - CMP (Complete Metabolic Panel) (E11.9, E11.21, G25.2, E78.49, Z00.00, I10) - HGA1C (E11.9, E11.21, G25.2, E78.49, Z00.00, I10) - PSA, total (Prostate Specific Antigen) (E11.9, E11.21, G25.2, E78.49, Z00.00, I10) - Urine microalbumin (E11.9, E11.21, G25.2, E78.49, Z00.00, I10) 10/01/2019 09:24:35 Plan printed and provided to patient: PRESCRIBE: Cialis 20 mg oral tablet, one half po as directed no more often than every three days, # 5, RF: 3. (Transmitted by Debbie Morse, DO) PRESCRIBE: primidone 50 mg oral tablet, one po hs daily for tremor, # 90, RF: 3. (Transmitted by Debbie Morse, DO) PRESCRIBE: metFORMIN 500 mg oral tablet, extended release, three po daily in am, # 270, RF: 3. (Transmitted by Debbie De Witt, DO) PRESCRIBE: losartan 25 mg oral tablet, one po daily, # 90, RF: 3. (Transmitted by Debbie De Witt, DO) PRESCRIBE: Jardiance 10 mg oral tablet, one po daily in am, # 90, RF: 3. (Transmitted by Debbie Morse, DO) PRESCRIBE: HumaLOG KwikPen 100 units/mL injectable solution, 20 units with dinner, # 90, RF: 3. (Transmitted by Debbie Morse, DO) PRESCRIBE: ergocalciferol 50,000 intl units (1.25 mg) oral capsule, one po weekly, # 12, RF: 1. (Transmitted by Debbie De Witt, DO) PRESCRIBE: atorvastatin 20 mg oral tablet, one po daily, # 90, RF: 3. (Transmitted by Debbie De Witt, DO) CHANGED Current Meds: Viagra 100 mg oral tablet PROVIDED HM: CDSMP Given: "the obesity code", " the diabetes code", and "quide to fasting" also "the longevity solution" by Evaristo Mark MD You can download a [employer] son to your computer and get these books on [employer]. Watch the movie "the magic pill" documentary on [employer] Also [employer] movie call " Fat" the documentary Google Evaristo Mark Podcast [employer] and watch it You can also find many you tube videos by Dr. Mark. PROVIDED HM: Screening for Depression in Adults Given: Neg PROVIDED HM: Tobacco use counseling and interventions: non- adults Given: NI ORDERED/ADVISED: Order Date 10-01-2019 hyrdroxyvitamin D (E11.9, E11.21, G25.2, E78.49, Z00.00, I10) - CBC with diff (automated) (E11.9, E11.21, G25.2, E78.49, Z00.00, I10) - CMP (Complete Metabolic Panel) (E11.9, E11.21, G25.2, E78.49, Z00.00, I10) - HGA1C (E11.9, E11.21, G25.2, E78.49, Z00.00, I10) - PSA, total (Prostate Specific Antigen) (E11.9, E11.21, G25.2, E78.49, Z00.00, I10) - Urine microalbumin (E11.9, E11.21, G25.2, E78.49, Z00.00, I10) 10/01/2019 09:24:35 Plan printed and provided to patient: PRESCRIBE: Cialis 20 mg oral tablet, one half po as directed no more often than every three days, # 5, RF: 3. (Transmitted by Debbie Morse, DO) PRESCRIBE: primidone 50 mg oral tablet, one po hs daily for tremor, # 90, RF: 3. (Transmitted by Debbie Morse, DO) PRESCRIBE: metFORMIN 500 mg oral tablet, extended release, three po daily in am, # 270, RF: 3. (Transmitted by Debbie Morse, DO) PRESCRIBE: losartan 25 mg oral tablet, one po daily, # 90, RF: 3. (Transmitted by Debbie Morse, DO) PRESCRIBE: Jardiance 10 mg oral tablet, one po daily in am, # 90, RF: 3. (Transmitted by Debbie Morse, DO) PRESCRIBE: HumaLOG KwikPen 100 units/mL injectable solution, 20 units with dinner, # 90, RF: 3. (Transmitted by Debbie Morse, DO) PRESCRIBE: ergocalciferol 50,000 intl units (1.25 mg) oral capsule, one po weekly, # 12, RF: 1. (Transmitted by Debbie Morse DO) PRESCRIBE: atorvastatin 20 mg oral tablet, one po daily, # 90, RF: 3. (Transmitted by Debbie Morse DO) CHANGED Current Meds: Viagra 100 mg oral tablet PROVIDED HM: CDSMP Given: "the obesity code", " the diabetes code", and "quide to fasting" also "the longevity solution" by Evaristo Mark MD You can download a [employer] son to your computer and get these books on [employer]. Watch the movie "the magic pill" documentary on [employer] Also [employer] movie call " Fat" the documentary Google Evaristo Mark Podcast [employer] and watch it You can also find many you tube videos by Dr. Mark. PROVIDED HM: Screening for Depression in Adults Given: Neg PROVIDED HM: Tobacco use counseling and interventions: non- adults Given: NI ORDERED/ADVISED: Order Date 10-01-2019 hyrdroxyvitamin D (E11.9, E11.21, G25.2, E78.49, Z00.00, I10) - CBC with diff (automated) (E11.9, E11.21, G25.2, E78.49, Z00.00, I10) - CMP (Complete Metabolic Panel) (E11.9, E11.21, G25.2, E78.49, Z00.00, I10) - HGA1C (E11.9, E11.21, G25.2, E78.49, Z00.00, I10) - PSA, total (Prostate Specific Antigen) (E11.9, E11.21, G25.2, E78.49, Z00.00, I10) - Urine microalbumin (E11.9, E11.21, G25.2, E78.49, Z00.00, I10) 06/28/2019 12:47:05 Will need to go to ED if condition worsens. tylenol moist heat and ice. I have discussed with this patient the natural history of this disease and potential for worsening and what those early hallmarks maybe. Please call me should you have any further questions or concerns or worsening of your condition. Monitor temp and call if fever >100 You are the one to use a mask if sick and self quarentine for 14 days to protect others from you if necessary. "Social communication with physical isolation. " [facility] [phone] [facility]. [phone] 06/28/2019 12:47:05 Will need to go to ED if condition worsens. tylenol moist heat and ice. I have discussed with this patient the natural history of this disease and potential for worsening and what those early hallmarks maybe. Please call me should you have any further questions or concerns or worsening of your condition. Monitor temp and call if fever >100 You are the one to use a mask if sick and self quarentine for 14 days to protect others from you if necessary. "Social communication with physical isolation. " [facility] [phone] [facility]. [phone] 06/28/2019 12:47:05 Will need to go to ED if condition worsens. tylenol moist heat and ice. I have discussed with this patient the natural history of this disease and potential for worsening and what those early hallmarks maybe. Please call me should you have any further questions or concerns or worsening of your condition. Monitor temp and call if fever >100 You are the one to use a mask if sick and self quarentine for 14 days to protect others from you if necessary. "Social communication with physical isolation. " [facility] [phone] [facility]. [phone] 05/17/2019 14:26:42 Plan printed and provided to patient: ORDERED/ADVISED: Order Date 05-17-2019 - CBC with diff (automated) (D72.819, R53.81) - C reactive protien (D72.819, R53.81) Counseling and coordination of care: time a significant factor for this patient encounter...30minutes FTF 05/17/2019 14:26:42 Plan printed and provided to patient: ORDERED/ADVISED: Order Date 05-17-2019 - CBC with diff (automated) (D72.819, R53.81) - C reactive protien (D72.819, R53.81) 05/17/2019 14:26:42 Plan printed and provided to patient: ORDERED/ADVISED: Order Date 05-17-2019 - CBC with diff (automated) (D72.819, R53.81) - C reactive protien (D72.819, R53.81) 05/12/2019 08:23:59 Plan printed and provided to patient: PROVIDED HM: High Blood Pressure in Adults: Screening Given: 116/70 PROVIDED HM: Recommendations for Testing HgbA1C in Individuals with Diabetes Mellitus Given: 5.9% ORDERED/ADVISED: Order Date 05-12-2019 - CBC with diff (automated) (R25.1, E11.21, Z00.00, R49.8, R53.81, E78.49, E55.9) - CMP (Complete Metabolic Panel) (R25.1, E11.21, Z00.00, R49.8, R53.81, E78.49, E55.9) - 25 hyrdroxyvitamin D (R25.1, E11.21, Z00.00, R49.8, R53.81, E78.49, E55.9) - Lipid Panel (R25.1, E11.21, Z00.00, R49.8, R53.81, E78.49, E55.9) - TSH (R25.1, E11.21, Z00.00, R49.8, R53.81, E78.49, E55.9) - Urine microalbumin (R25.1, E11.21, Z00.00, R49.8, R53.81, E78.49, E55.9) - C reactive protien (R25.1, E11.21, Z00.00, R49.8, R53.81, E78.49, E55.9) PROVIDED HM: Assess Adult Immunization Status Given: Get a flushot and pneumovax 23 at [facility] consider sleep studies ORDERED/ADVISED: Order Date 05-12-2019 - Overnight Oximetry (R25.1, E11.21, R49.8, R53.81, E78.49, E55.9) PROVIDED HM: CDSMP Given: "the obesity code", " the diabetes code", and "quide to fasting" also "the longevity solution" by Evaristo Mark MD You can download a [employer] son to your computer and get these books on [employer]. Watch the movie "the magic pill" documentary on [employer] Also [employer] movie call " Fat" the documentary Google Evaristo Mark Podcast 50 [employer] and watch it You can also find many you tube videos by Dr. Mark. Counseling and coordination of care: time a significant factor for this patient encounter...50minutes FTF 05/12/2019 08:23:59 Plan printed and provided to patient: PROVIDED HM: High Blood Pressure in Adults: Screening Given: 116/70 PROVIDED HM: Recommendations for Testing HgbA1C in Individuals with Diabetes Mellitus Given: 5.9% ORDERED/ADVISED: Order Date 05-12-2019 - CBC with diff (automated) (R25.1, E11.21, Z00.00, R49.8, R53.81, E78.49, E55.9) - CMP (Complete Metabolic Panel) (R25.1, E11.21, Z00.00, R49.8, R53.81, E78.49, E55.9) - 25 hyrdroxyvitamin D (R25.1, E11.21, Z00.00, R49.8, R53.81, E78.49, E55.9) - Lipid Panel (R25.1, E11.21, Z00.00, R49.8, R53.81, E78.49, E55.9) - TSH (R25.1, E11.21, Z00.00, R49.8, R53.81, E78.49, E55.9) - Urine microalbumin (R25.1, E11.21, Z00.00, R49.8, R53.81, E78.49, E55.9) - C reactive protien (R25.1, E11.21, Z00.00, R49.8, R53.81, E78.49, E55.9) PROVIDED HM: Assess Adult Immunization Status Given: Get a flushot and pneumovax 23 at [facility] consider sleep studies ORDERED/ADVISED: Order Date 05-12-2019 - Overnight Oximetry (R25.1, E11.21, R49.8, R53.81, E78.49, E55.9) PROVIDED HM: CDSMP Given: "the obesity code", " the diabetes code", and "quide to fasting" also "the longevity solution" by Evaristo Mark MD You can download a [employer] son to your computer and get these books on [employer]. Watch the movie "the magic pill" documentary on [employer] Also [employer] movie call " Fat" the documentary Google Evaristo Mark Podcast 50 [employer] and watch it You can also find many you tube videos by Dr. Mark. 05/12/2019 08:23:59 Plan printed and provided to patient: PROVIDED HM: High Blood Pressure in Adults: Screening Given: 116/70 PROVIDED HM: Recommendations for Testing HgbA1C in Individuals with Diabetes Mellitus Given: 5.9% ORDERED/ADVISED: Order Date 05-12-2019 - CBC with diff (automated) (R25.1, E11.21, Z00.00, R49.8, R53.81, E78.49, E55.9) - CMP (Complete Metabolic Panel) (R25.1, E11.21, Z00.00, R49.8, R53.81, E78.49, E55.9) - 25 hyrdroxyvitamin D (R25.1, E11.21, Z00.00, R49.8, R53.81, E78.49, E55.9) - Lipid Panel (R25.1, E11.21, Z00.00, R49.8, R53.81, E78.49, E55.9) - TSH (R25.1, E11.21, Z00.00, R49.8, R53.81, E78.49, E55.9) - Urine microalbumin (R25.1, E11.21, Z00.00, R49.8, R53.81, E78.49, E55.9) - C reactive protien (R25.1, E11.21, Z00.00, R49.8, R53.81, E78.49, E55.9) PROVIDED HM: Assess Adult Immunization Status Given: Get a flushot and pneumovax 23 at [facility] consider sleep studies ORDERED/ADVISED: Order Date 05-12-2019 - Overnight Oximetry (R25.1, E11.21, R49.8, R53.81, E78.49, E55.9) PROVIDED HM: CDSMP Given: "the obesity code", " the diabetes code", and "quide to fasting" also "the longevity solution" by Evaristo Mark MD You can download a [employer] son to your computer and get these books on [employer]. Watch the movie "the magic pill" documentary on [employer] Also [employer] movie call " Fat" the documentary Google Evaristo Mark Podcast 50 [employer] and watch it You can also find many you tube videos by Dr. Mark. 12/25/2018 11:00:16 See physical form 12/25/2018 11:00:16 See physical form 12/25/2018 11:00:16 See physical form 09/21/2018 09:27:25 PRESCRIBE: primidone 50 mg oral tablet, one po hs daily for tremor, # 90, RF: 3. (Transmitted by Debbie Morse DO) PRESCRIBE: metFORMIN 500 mg oral tablet, extended release, three po daily in am, # 270, RF: 3. (Transmitted by Debbie Morse DO) PRESCRIBE: losartan 25 mg oral tablet, one po daily, # 90, RF: 3. (Transmitted by Debbie Morse DO) PRESCRIBE: Jardiance 10 mg oral tablet, one po daily in am, # 90, RF: 3. (Trans mitted by Debbie Morse DO) PRESCRIBE: HumaLOG KwikPen 100 units/mL injectable solution, 20 units with dinner, # 90, RF: 3. (Transmitted by Debbie Morse DO) PRESCRIBE: atorvastatin 20 mg oral tablet, one po daily, # 90, RF: 3. (Transmitted by Debbie Morse DO) Plan printed and provided to patient: ADDED Current Meds: Ozempic (0.25 mg or 0.5 mg dose) 2 mg/1.5 mL subcutaneous solution, one dose weekly, # 0, RF: 0. CHANGED Current Meds: primidone 50 mg oral tablet PROVIDED HM: Assess Adult Immunization Status Given: You need pneumovax 23. You have had prevnar 13 Shingrix is also recommended. PROVIDED HM: Screening for Lung Cancer Given: Not a candidate PROVIDED HM: CDSMP Given: The obesity code The diabetes code Guide to intermittent fasting all by Evaristo Mark MD. 09/21/2018 09:27:25 PRESCRIBE: primidone 50 mg oral tablet, one po hs daily for tremor, # 90, RF: 3. (Transmitted by Debbie Morse DO) PRESCRIBE: metFORMIN 500 mg oral tablet, extended release, three po daily in am, # 270, RF: 3. (Transmitted by Debbie Morse DO) PRESCRIBE: losartan 25 mg oral tablet, one po daily, # 90, RF: 3. (Transmitted by Debbie Morse DO) PRESCRIBE: Jardiance 10 mg oral tablet, one po daily in am, # 90, RF: 3. (Trans mitted by Debbie Morse DO) PRESCRIBE: HumaLOG KwikPen 100 units/mL injectable solution, 20 units with dinner, # 90, RF: 3. (Transmitted by Debbie Morse, ) PRESCRIBE: atorvastatin 20 mg oral tablet, one po daily, # 90, RF: 3. (Transmitted by Debbie Morse DO) Plan printed and provided to patient: ADDED Current Meds: Ozempic (0.25 mg or 0.5 mg dose) 2 mg/1.5 mL subcutaneous solution, one dose weekly, # 0, RF: 0. CHANGED Current Meds: primidone 50 mg oral tablet PROVIDED HM: Assess Adult Immunization Status Given: You need pneumovax 23. You have had prevnar 13 Shingrix is also recommended. PROVIDED HM: Screening for Lung Cancer Given: Not a candidate PROVIDED HM: CDSMP Given: The obesity code The diabetes code Guide to intermittent fasting all by Evaristo Mark MD. 09/21/2018 09:27:25 Plan printed and provided to patient: ADDED Current Meds: Ozempic (0.25 mg or 0.5 mg dose) 2 mg/1.5 mL subcutaneous solution, one dose weekly, # 0, RF: 0. CHANGED Current Meds: primidone 50 mg oral tablet PROVIDED HM: Assess Adult Immunization Status Given: You need pneumovax 23. You have had prevnar 13 Shingrix is also recommended. PROVIDED HM: Screening for Lung Cancer Given: Not a candidate PROVIDED HM: CDSMP Given: The obesity code The diabetes code Guide to intermittent fasting all by Evaristo Mark MD. 09/21/2018 09:27:25 Plan printed and provided to patient: ADDED Current Meds: Ozempic (0.25 mg or 0.5 mg dose) 2 mg/1.5 mL subcutaneous solution, one dose weekly, # 0, RF: 0. CHANGED Current Meds: primidone 50 mg oral tablet PROVIDED HM: Assess Adult Immunization Status Given: You need pneumovax 23. You have had prevnar 13 Shingrix is also recommended. PROVIDED HM: Screening for Lung Cancer Given: Not a candidate PROVIDED HM: CDSMP Given: The obesity code The diabetes code Guide to intermittent fasting all by Evaristo Mark MD. 09/21/2018 09:27:25 PRESCRIBE: primidone 50 mg oral tablet, one po hs daily for tremor, # 90, RF: 3. (Transmitted by Debbie Morse DO) PRESCRIBE: metFORMIN 500 mg oral tablet, extended release, three po daily in am, # 270, RF: 3. (Transmitted by Debbie Morse DO) PRESCRIBE: losartan 25 mg oral tablet, one po daily, # 90, RF: 3. (Transmitted by Debbie Morse DO) PRESCRIBE: Jardiance 10 mg oral tablet, one po daily in am, # 90, RF: 3. (Trans mitted by Debbie Morse DO) PRESCRIBE: HumaLOG KwikPen 100 units/mL injectable solution, 20 units with dinner, # 90, RF: 3. (Transmitted by Debbie Morse DO) PRESCRIBE: atorvastatin 20 mg oral tablet, one po daily, # 90, RF: 3. (Transmitted by Debbie Morse DO) Plan printed and provided to patient: ADDED Current Meds: Ozempic (0.25 mg or 0.5 mg dose) 2 mg/1.5 mL subcutaneous solution, one dose weekly, # 0, RF: 0. CHANGED Current Meds: primidone 50 mg oral tablet PROVIDED HM: Assess Adult Immunization Status Given: You need pneumovax 23. You have had prevnar 13 Shingrix is also recommended. PROVIDED HM: Screening for Lung Cancer Given: Not a candidate PROVIDED HM: CDSMP Given: The obesity code The diabetes code Guide to intermittent fasting all by Evaristo Mark MD. 07/27/2018 15:09:01 Plan printed and provided to patient: PRESCRIBE: ergocalciferol 50,000 intl units (1.25 mg) oral capsule, one po weekly, # 4, RF: 5. (Transmitted by Debbie Morse DO) PRESCRIBE: losartan 25 mg oral tablet, one po daily, # 30, RF: 5. (Transmitted by Debbie Morse DO) 07/27/2018 15:09:01 Plan printed and provided to patient: PRESCRIBE: ergocalciferol 50,000 intl units (1.25 mg) oral capsule, one po weekly, # 4, RF: 5. (Transmitted by Debbie Morse DO) PRESCRIBE: losartan 25 mg oral tablet, one po daily, # 30, RF: 5. (Transmitted by Debbie Morse DO) 07/27/2018 15:09:01 Plan printed and provided to patient: PRESCRIBE: ergocalciferol 50,000 intl units (1.25 mg) oral capsule, one po weekly, # 4, RF: 5. (Transmitted by Debbie Morse DO) PRESCRIBE: losartan 25 mg oral tablet, one po daily, # 30, RF: 5. (Transmitted by Debbie Morse DO) 07/06/2018 11:57:31 Plan printed and provided to patient: ADDED Current Meds: HumaLOG KwikPen 100 units/mL injectable solution, 20 units with dinner , # 0, RF: 0. CHANGED Current Meds: Viagra 100 mg oral tablet ORDERED/ADVISED: Order Date 07-06-2018 - CBC with diff (automated) (E11.9, R53.81, Z00.00, I10) - CMP (Complete Metabolic Panel) (E11.9, R53.81, Z00.00, I10) - 25 hyrdroxyvitamin D (E11.9, R53.81, Z00.00, I10) - Lipid Panel (E11.9, R53.81, Z00.00, I10) - TSH (E11.9, R53.81, Z00.00, I10) - Urine microalbumin (E11.9, R53.81, Z00.00, I10) PROVIDED HM: Recommendations for Testing HgbA1C in Individuals with Diabetes Mellitus Given: 7.6% ORDERED/ADVISED: Order Date 07-06-2018 - CXR - PA & Lat (R05, E11.9, R53.81, Z00.00, I10) PROVIDED HM: Assess Adult Immunization Status Given: You need pneumovax 23. You have already had prevnar 13 07/06/2018 11:57:31 Plan printed and provided to patient: ADDED Current Meds: HumaLOG KwikPen 100 units/mL injectable solution, 20 units with dinner , # 0, RF: 0. CHANGED Current Meds: Viagra 100 mg oral tablet ORDERED/ADVISED: Order Date 07-06-2018 - CBC with diff (automated) (E11.9, R53.81, Z00.00, I10) - CMP (Complete Metabolic Panel) (E11.9, R53.81, Z00.00, I10) - 25 hyrdroxyvitamin D (E11.9, R53.81, Z00.00, I10) - Lipid Panel (E11.9, R53.81, Z00.00, I10) - TSH (E11.9, R53.81, Z00.00, I10) - Urine microalbumin (E11.9, R53.81, Z00.00, I10) PROVIDED HM: Recommendations for Testing HgbA1C in Individuals with Diabetes Mellitus Given: 7.6% ORDERED/ADVISED: Order Date 07-06-2018 - CXR - PA & Lat (R05, E11.9, R53.81, Z00.00, I10) PROVIDED HM: Assess Adult Immunization Status Given: You need pneumovax 23. You have already had prevnar 13 07/06/2018 11:57:31 Plan printed and provided to patient: ADDED Current Meds: HumaLOG KwikPen 100 units/mL injectable solution, 20 units with dinner , # 0, RF: 0. CHANGED Current Meds: Viagra 100 mg oral tablet ORDERED/ADVISED: Order Date 07-06-2018 - CBC with diff (automated) (E11.9, R53.81, Z00.00, I10) - CMP (Complete Metabolic Panel) (E11.9, R53.81, Z00.00, I10) - 25 hyrdroxyvitamin D (E11.9, R53.81, Z00.00, I10) - Lipid Panel (E11.9, R53.81, Z00.00, I10) - TSH (E11.9, R53.81, Z00.00, I10) - Urine microalbumin (E11.9, R53.81, Z00.00, I10) PROVIDED HM: Recommendations for Testing HgbA1C in Individuals with Diabetes Mellitus Given: 7.6% ORDERED/ADVISED: Order Date 07-06-2018 - CXR - PA & Lat (R05, E11.9, R53.81, Z00.00, I10) PROVIDED HM: Assess Adult Immunization Status Given: You need pneumovax 23. You have already had prevnar 13 12/29/2017 11:43:59 Plan printed and provided to patient: PRESCRIBE: HumaLOG KwikPen 100 units/mL injectable solution, 25 to 30 units sq daily as needed, # 90, RF: 3. (Transmitted by Debbie Morse DO) PRESCRIBE: primidone 50 mg oral tablet, one po hs daily for tremor, # 90, RF: 3. (Transmitted by Debbie Morse DO) PRESCRIBE: metFORMIN 500 mg oral tablet, extended release, three po daily in am, # 270, RF: 3. (Transmitted by Debbie Morse DO) PRESCRIBE: HumaLOG KwikPen 100 units/mL subcutaneous solution, 25 to 30 units sq daily as needed, # 90 , RF: 3. PRESCRIBE: atorvastatin 20 mg oral tablet, one po daily, # 90, RF: 3. (Transmitted by Debbie Morse DO) PRESCRIBE: allopurinol 300 mg oral tablet, one po daily, # 90, RF: 3. (Meléndez smitted by Debbie Morse DO) PROVIDED HM: Recommendations for Testing HgbA1C in Individuals with Diabetes Mellitus Given: 6.7% PROVIDED HM: High Blood Pressure in Adults: Screening Given: 104/72 PROVIDED HM: Screening and Behavioral Counseling Interventions in Primary Care to Reduce Alcohol Misuse in Adults Given: NI PROVIDED HM: Screening for Depression in Adults Given: Neg PROVIDED HM: Screening for Lung Cancer Given: not a candidate PROVIDED HM: Tobacco use counseling and interventions: non- adults Given: NI ORDERED/ADVISED: Order Date 12-29-2017 - CBC with diff (automated) (E11.9, Z00.00, M10.09, E78.5, G25.2, I10) - CMP (Complete Metabolic Panel) (E11.9, Z00.00, M10.09, E78.5, G25.2, I10) - Lipid Panel (E11.9, Z00.00, M10.09, E78.5, G25.2, I10) - Urine microalbumin (E11.9, Z00.00, M10.09, E78.5, G25.2, I10) ORDERED/ADVISED: Order Date 12-29-2017 - Ultrasound Aorta (Z00.00) PROVIDED HM: Assess Adult Immunization Status Given: You should get pneumovax 23 and a flushot at [facility] 12/29/2017 11:43:59 Plan printed and provided to patient: PRESCRIBE: HumaLOG KwikPen 100 units/mL injectable solution, 25 to 30 units sq daily as needed, # 90, RF: 3. (Transmitted by Debbie Morse, ) PRESCRIBE: primidone 50 mg oral tablet, one po hs daily for tremor, # 90, RF: 3. (Transmitted by Debbie Morse, ) PRESCRIBE: metFORMIN 500 mg oral tablet, extended release, three po daily in am, # 270, RF: 3. (Transmitted by Debbie Morse, DO) PRESCRIBE: HumaLOG KwikPen 100 units/mL subcutaneous solution, 25 to 30 units sq daily as needed, # 90 , RF: 3. PRESCRIBE: atorvastatin 20 mg oral tablet, one po daily, # 90, RF: 3. (Transmitted by Debbie Morse DO) PRESCRIBE: allopurinol 300 mg oral tablet, one po daily, # 90, RF: 3. (Meléndez smitted by Debbie Morse DO) PROVIDED HM: Recommendations for Testing HgbA1C in Individuals with Diabetes Mellitus Given: 6.7% PROVIDED HM: High Blood Pressure in Adults: Screening Given: 104/72 PROVIDED HM: Screening and Behavioral Counseling Interventions in Primary Care to Reduce Alcohol Misuse in Adults Given: NI PROVIDED HM: Screening for Depression in Adults Given: Neg PROVIDED HM: Screening for Lung Cancer Given: not a candidate PROVIDED HM: Tobacco use counseling and interventions: non- adults Given: NI ORDERED/ADVISED: Order Date 12-29-2017 - CBC with diff (automated) (E11.9, Z00.00, M10.09, E78.5, G25.2, I10) - CMP (Complete Metabolic Panel) (E11.9, Z00.00, M10.09, E78.5, G25.2, I10) - Lipid Panel (E11.9, Z00.00, M10.09, E78.5, G25.2, I10) - Urine microalbumin (E11.9, Z00.00, M10.09, E78.5, G25.2, I10) ORDERED/ADVISED: Order Date 12-29-2017 - Ultrasound Aorta (Z00.00) PROVIDED HM: Assess Adult Immunization Status Given: You should get pneumovax 23 and a flushot at [facility] 12/29/2017 11:43:59 Plan printed and provided to patient: PRESCRIBE: HumaLOG KwikPen 100 units/mL injectable solution, 25 to 30 units sq daily as needed, # 90, RF: 3. (Transmitted by Debbie Morse, ) PRESCRIBE: primidone 50 mg oral tablet, one po hs daily for tremor, # 90, RF: 3. (Transmitted by Debbie Morse, DO) PRESCRIBE: metFORMIN 500 mg oral tablet, extended release, three po daily in am, # 270, RF: 3. (Transmitted by Debbie Morse, DO) PRESCRIBE: HumaLOG KwikPen 100 units/mL subcutaneous solution, 25 to 30 units sq daily as needed, # 90 , RF: 3. PRESCRIBE: atorvastatin 20 mg oral tablet, one po daily, # 90, RF: 3. (Transmitted by Debbie Morse, ) PRESCRIBE: allopurinol 300 mg oral tablet, one po daily, # 90, RF: 3. (Meléndez smitted by Debbie Morse DO) PROVIDED HM: Recommendations for Testing HgbA1C in Individuals with Diabetes Mellitus Given: 6.7% PROVIDED HM: High Blood Pressure in Adults: Screening Given: 104/72 PROVIDED HM: Screening and Behavioral Counseling Interventions in Primary Care to Reduce Alcohol Misuse in Adults Given: NI PROVIDED HM: Screening for Depression in Adults Given: Neg PROVIDED HM: Screening for Lung Cancer Given: not a candidate PROVIDED HM: Tobacco use counseling and interventions: non- adults Given: NI ORDERED/ADVISED: Order Date 12-29-2017 - CBC with diff (automated) (E11.9, Z00.00, M10.09, E78.5, G25.2, I10) - CMP (Complete Metabolic Panel) (E11.9, Z00.00, M10.09, E78.5, G25.2, I10) - Lipid Panel (E11.9, Z00.00, M10.09, E78.5, G25.2, I10) - Urine microalbumin (E11.9, Z00.00, M10.09, E78.5, G25.2, I10) ORDERED/ADVISED: Order Date 12-29-2017 - Ultrasound Aorta (Z00.00) PROVIDED HM: Assess Adult Immunization Status Given: You should get pneumovax 23 and a flushot at [facility] 01/17/2017 13:59:40 Letter written to [facility] people see imported items Counseling and coordination of care: time a significant factor for this patient encounter...35minutes FTF 01/17/2017 13:59:40 Letter written to [employer] see imported items 01/17/2017 13:59:40 Letter written to [employer] see imported items 10/23/2016 14:17:10 See form 10/23/2016 14:17:10 See form 10/23/2016 14:17:10 See form 09/16/2016 09:17:04 Plan printed and provided to patient: REMOVED from Current Meds: lisinopril 10 mg oral tablet, one po daily, # 90, RF: 3. (Transmitted by DebbieBlue Flame Dataard, DO) Date Prescribed: 01/17/2016 PRESCRIBE: HumaLOG KwikPen 100 units/mL subcutaneous solution, 10-15 units sq with evening meal, # 15, RF: 0. (Transmitted by Debbie De Witt, DO) PRESCRIBE: HumaLOG KwikPen 100 units/mL subcutaneous solution, 10-15 units sq with evening meal, # 1, RF: 0. PROVIDED HM: High Blood Pressure in Adults: Screening Given: 128/64 PROVIDED HM: Screening for Colorectal Cancer in Adults Aged 50-75 yrs Given: No colon PROVIDED HM: Screening for Diabetic Neuropathy Given: NI PROVIDED HM: Screening for Diabetic Retinopathy Given: done by Dr. Wade recently FTF 30 min 09/16/2016 09:17:04 Plan printed and provided to patient: REMOVED from Current Meds: lisinopril 10 mg oral tablet, one po daily, # 90, RF: 3. (Transmitted by Mantaard, DO) Date Prescribed: 01/17/2016 PRESCRIBE: HumaLOG KwikPen 100 units/mL subcutaneous solution, 10-15 units sq with evening meal, # 15, RF: 0. (Transmitted by Mantaard, DO) PRESCRIBE: HumaLOG KwikPen 100 units/mL subcutaneous solution, 10-15 units sq with evening meal, # 1, RF: 0. PROVIDED HM: High Blood Pressure in Adults: Screening Given: 128/64 PROVIDED HM: Screening for Colorectal Cancer in Adults Aged 50-75 yrs Given: No colon PROVIDED HM: Screening for Diabetic Neuropathy Given: NI PROVIDED HM: Screening for Diabetic Retinopathy Given: done by Dr. Wade recently 09/16/2016 09:17:04 Plan printed and provided to patient: REMOVED from Current Meds: lisinopril 10 mg oral tablet, one po daily, # 90, RF: 3. (Transmitted by Debbie Morse DO) Date Prescribed: 01/17/2016 PRESCRIBE: HumaLOG KwikPen 100 units/mL subcutaneous solution, 10-15 units sq with evening meal, # 15, RF: 0. (Transmitted by Debbie De Witt, DO) PRESCRIBE: HumaLOG KwikPen 100 units/mL subcutaneous solution, 10-15 units sq with evening meal, # 1, RF: 0. PROVIDED HM: High Blood Pressure in Adults: Screening Given: 128/64 PROVIDED HM: Screening for Colorectal Cancer in Adults Aged 50-75 yrs Given: No colon PROVIDED HM: Screening for Diabetic Neuropathy Given: NI PROVIDED HM: Screening for Diabetic Retinopathy Given: done by Dr. Wade recently 01/17/2016 10:41:29 Plan printed and provided to patient: PRESCRIBE: BD ultrafine needles for insulin, use as directed qid, # 100, RF: 5. (Transmitted by Debbie Mini, DO) PRESCRIBE: HumaLOG KwikPen 100 units/mL subcutaneous solution, 10-15 units sq with evening meal, # 5, RF: 5. (Transmitted by Debbie Morse DO) PRESCRIBE: primidone 50 mg oral tablet, one po hs daily for tremor, # 90, RF: 3. (Transmitted by Debbie Morse DO) PRESCRIBE: lisinopril 10 mg oral tablet, one po daily, # 90, RF: 3. (Transmitted by Debbie Morse, DO) PRESCRIBE: atorvastatin 20 mg oral tablet, one po daily, # 90, RF: 3. (Transmitted by Debbie Morse, DO) PRESCRIBE: metFORMIN 500 mg oral tablet, extended release, one po qam and two po qpm pc, # 270, RF: 3. (Transmitted by Debbie Morse DO) PRESCRIBE: allopurinol 300 mg oral tablet, one po daily, # 90, RF: 3. (Transmitted by Debbie Morse DO) PROVIDED HM: Healthy Diet and Physical Activity: Counseling Adults with High Risk of CVD Given: Urged to walk at least 3 times/week and eat a more plant based diet PROVIDED HM: Assessment of Fall Risk in Community-Dwelling Older Adults Given: demonstation of balance excercise PROVIDED HM: Screening for Depression in Adults Given: Neg PROVIDED HM: Tobacco use counseling and interventions: non- adults Given: NI ORDERED/ADVISED: - CBC with diff (automated) ICD Codes (E11.9, E78.5, Z00.00, K51.90, I10) - CMP (Complete Metabolic Panel) ICD Codes (E11.9, E78.5, Z00.00, K51.90, I10) - Lipid Panel ICD Codes (E11.9, E78.5, Z00.00, K51.90, I10) - Urine microalbumin ICD Codes (E11.9, E78.5, Z00.00, K51.90, I10) PROVIDED VACCINATION: 1 dose of Fluvirin, 0.5 mL IM in the Left Deltoid (Mfg: OTHER lot no. [id number], expires 07/24/2016) 01/17/2016 10:41:29 Plan printed and provided to patient: PRESCRIBE: BD ultrafine needles for insulin, use as directed qid, # 100, RF: 5. (Transmitted by Debbie Morse, DO) PRESCRIBE: HumaLOG KwikPen 100 units/mL subcutaneous solution, 10-15 units sq with evening meal, # 5, RF: 5. (Transmitted by Debbie De Witt, DO) PRESCRIBE: primidone 50 mg oral tablet, one po hs daily for tremor, # 90, RF: 3. (Transmitted by Debbie De Witt, DO) PRESCRIBE: lisinopril 10 mg oral tablet, one po daily, # 90, RF: 3. (Transmitted by Debbie De Witt, DO) PRESCRIBE: atorvastatin 20 mg oral tablet, one po daily, # 90, RF: 3. (Transmitted by Debbie De Witt, DO) PRESCRIBE: metFORMIN 500 mg oral tablet, extended release, one po qam and two po qpm pc, # 270, RF: 3. (Transmitted by Debbie De Witt, DO) PRESCRIBE: allopurinol 300 mg oral tablet, one po daily, # 90, RF: 3. (Transmitted by Debbie De Witt, ) PROVIDED HM: Healthy Diet and Physical Activity: Counseling Adults with High Risk of CVD Given: Urged to walk at least 3 times/week and eat a more plant based diet PROVIDED HM: Assessment of Fall Risk in Community-Dwelling Older Adults Given: demonstation of balance excercise PROVIDED HM: Screening for Depression in Adults Given: Neg PROVIDED HM: Tobacco use counseling and interventions: non- adults Given: NI ORDERED/ADVISED: - CBC with diff (automated) ICD Codes (E11.9, E78.5, Z00.00, K51.90, I10) - CMP (Complete Metabolic Panel) ICD Codes (E11.9, E78.5, Z00.00, K51.90, I10) - Lipid Panel ICD Codes (E11.9, E78.5, Z00.00, K51.90, I10) - Urine microalbumin ICD Codes (E11.9, E78.5, Z00.00, K51.90, I10) PROVIDED VACCINATION: 1 dose of Fluvirin, 0.5 mL IM in the Left Deltoid (Mfg: OTHER lot no. [id number], expires 07/24/2016) 01/17/2016 10:41:29 Plan printed and provided to patient: PRESCRIBE: BD ultrafine needles for insulin, use as directed qid, # 100, RF: 5. (Transmitted by Debbie De Witt, [place]) PRESCRIBE: HumaLOG KwikPen 100 units/mL subcutaneous solution, 10-15 units sq with evening meal, # 5, RF: 5. (Transmitted by Debbie Mini, DO) PRESCRIBE: primidone 50 mg oral tablet, one po hs daily for tremor, # 90, RF: 3. (Transmitted by Debbie De Witt, DO) PRESCRIBE: lisinopril 10 mg oral tablet, one po daily, # 90, RF: 3. (Transmitted by Debbie De Witt, DO) PRESCRIBE: atorvastatin 20 mg oral tablet, one po daily, # 90, RF: 3. (Transmitted by Debbie Mini, [place]) PRESCRIBE: metFORMIN 500 mg oral tablet, extended release, one po qam and two po qpm pc, # 270, RF: 3. (Transmitted by Debbie Mini, DO) PRESCRIBE: allopurinol 300 mg oral tablet, one po daily, # 90, RF: 3. (Transmitted by Debbie Mini, DO) PROVIDED HM: Healthy Diet and Physical Activity: Counseling Adults with High Risk of CVD Given: Urged to walk at least 3 times/week and eat a more plant based diet PROVIDED HM: Assessment of Fall Risk in Community-Dwelling Older Adults Given: demonstation of balance excercise PROVIDED HM: Screening for Depression in Adults Given: Neg PROVIDED HM: Tobacco use counseling and interventions: non- adults Given: NI ORDERED/ADVISED: - CBC with diff (automated) ICD Codes (E11.9, E78.5, Z00.00, K51.90, I10) - CMP (Complete Metabolic Panel) ICD Codes (E11.9, E78.5, Z00.00, K51.90, I10) - Lipid Panel ICD Codes (E11.9, E78.5, Z00.00, K51.90, I10) - Urine microalbumin ICD Codes (E11.9, E78.5, Z00.00, K51.90, I10) PROVIDED VACCINATION: 1 dose of Fluvirin, 0.5 mL IM in the Left Deltoid (Mfg: OTHER lot no. [id number], expires 07/24/2016) 08/14/2015 11:10:52 Plan printed and provided to patient: PROVIDED HM: High Blood Pressure in Adults: Screening Given: 104/62 Dr. Kate's heel cup Ice is your friend 05/15/2015 08:28:44 Plan printed and provided to patient: PRESCRIBE: primidone 50 mg oral tablet, one po hs daily for tremor, # 30, RF: 5. (Transmitted by Debbie Morse DO) 35minutes FTF PROVIDED HM: Recommendations for Testing HgbA1C in Individuals with Diabetes Mellitus Given: 6.9% on 05/01 PROVIDED HM: Diabetic eye exam Given: Done 08/[address] Wade PROVIDED HM: Screening for Diabetic Neuropathy Given: None REVIEWED EBM: [place] for 'Essential Tremor Syndrome' ORDERED/ADVISED: - BMP (Basic Metabolic Panel) ICD Codes (E11.9, G25.2, R53.81) - Magnesium Level ICD Codes (E11.9, G25.2, R53.81) - TSH ICD Codes (E11.9, G25.2, R53.81) 01/30/2015 08:36:25 Plan printed and provided to patient: We discussed the possibility of seeing an eyedoctor and/or neurologist. With hgac 8.1% this may be the issue with vision as well as dizziness. Need to get bs's under control ORDERED/ADVISED: - BMP (Basic Metabolic Panel) ICD Codes (E11.65, R42, G25.2) - CBC with diff (automated) ICD Codes (E11.65, R42, G25.2) - Blood Draw ICD Codes (E11.65, R42, G25.2) 12/09/2014 11:50:27 Plan printed and provided to patient: PRESCRIBE: Viagra 100 mg oral tablet, use as directed, # 6, RF: 5. (Transmitted by Debbie De Witt, DO) PRESCRIBE: metFORMIN 500 mg oral tablet, one po bid pc, # 180, RF: 3. (Transmitted by Debbie Mini, DO) PRESCRIBE: lisinopril 10 mg oral tablet, one po daily, # 90, RF: 3. (Transmitted by Debbie Mini, DO) PRESCRIBE: Lipitor 20 mg oral tablet, one po daily, # 90, RF: 3. (Transmitted by Debbie Mini, DO) PRESCRIBE: HumaLOG KwikPen 100 units/mL subcutaneous solution, 10-15 units sq with evening meal, # 5, RF: 5. (Transmitted by DebbieBlue Flame Dataard, DO) PRESCRIBE: allopurinol 300 mg oral tablet, one po daily, # 90, RF: 3. (Transmitted by Debbie De Witt, DO) PROVIDED HM: Recommendations for Testing HgbA1C in Individuals with Diabetes Mellitus Given: hgac 8.1% ORDERED/ADVISED: - CBC with diff (automated) ICD Codes (N40.0, I25.10, E11.65, E78.5, K51.90, I10) - CMP (Complete Metabolic Panel) ICD Codes (N40.0, I25.10, E11.65, E78.5, K51.90, I10) - Lipid Panel ICD Codes (N40.0, I25.10, E11.65, E78.5, K51.90, I10) - Urine microalbumin ICD Codes (N40.0, I25.10, E11.65, E78.5, K51.90, I10) - PSA, total (Prostate Specific Antigen) ICD Codes (N40.0, I25.10, E11.65, E78.5, K51.90, I10) PROVIDED VACCINATION: 1 dose of Afluria, 0.5 mL IM in the Left Deltoid (Mfg: [facility] lot no. [id number], expires 09/07/2015) REVIEWED EBM: [place] for 'Parkinson Disease' PROVIDED: Patient Education (12/09/2014) 05/30/2014 08:55:58 PRESCRIBE: Zostavax subcutaneous injection, one dose now, # 1, RF: 0. PRESCRIBE: Augmentin 875 mg-125 mg oral tablet, one po bid, # 20, RF: 0. (Transmitted by Debbie Morse DO) PRESCRIBE: Flonase 50 mcg/inh nasal spray, two sprays each nostril once daily, # 1, RF: 5. (Transmitted by Debbie Morse DO) REVIEWED EBM: [place] for 'Sinusitis' Return in 3 weeks if not resolved. 04/29/2014 08:26:44 Instructions printed and provided to patient: ADDED Current Meds: Invokana 100 mg oral tablet, one po daily, # 0, PROVIDED: Patient Education (04/29/2014) REVIEWED EBM: [place] for 'Essential Tremor Syndrome' PROVIDED HM: Recommendations for Testing HgbA1C in Individuals with Diabetes Mellitus Given: hgac 7.3% PROVIDED HM: Screening for High Blood Pressure in Adults Given: 120/78 ORDERED/ADVISED: - CBC with diff (automated) ICD9 Codes (250.02, 333.1, 272.4, 401.9) - CMP (Complete Metabolic Panel) ICD9 Codes (250.02, 333.1, 272.4, 401.9) - Lipid Panel ICD9 Codes (250.02, 333.1, 272.4, 401.9) - TSH ICD9 Codes (250.02, 333.1, 272.4, 401.9) - PSA, total (Prostate Specific Antigen) (prostatism) ICD9 Codes (250.02, 333.1, 272.4, 401.9) - Urine microalbumin ICD9 Codes (250.02, 333.1, 272.4, 401.9) PROVIDED HM: Recommendations for Diabetic Foot Care Given: No problems PROVIDED HM: Screening for Diabetic Retinopathy Given: no problems PROVIDED HM: Screening for Diabetic Neuropathy Given: not present PROVIDED HM: Screening for Lipid Disorders in Adults (Male) Given: LDL one year ago 108. Ordered today PROVIDED HM: Screening for Colorectal Cancer in Adults Aged 50-75 yrs Given: no colon PROVIDED HM: Counseling to Prevent Tobacco Use and Tobacco-Caused Disease in Adults and Women Given: NI PROVIDED HM: Screening for Diabetic Nephropathy Given: ordered today Molst reviewed and renewed. 12/06/2013 11:39:12 ORDERED/ADVISED: - Urine microalbumin ICD9 Codes (250.02) ORDERED/ADVISED: - Custom Order (Mr. Moura has been referred to an Endoc rinologist for his AODM. He has seen her is consultation twice over the past 90 days. His hgac was 7.9% on June. Today his hgac ac is 7.0%) ICD9 Codes (250.02, 272.4, 401.9) - Custom Order ICD9 Codes (250.02, 272.4, 401.9) 11/17/2013 12:26:03 Instructions printed and provided to patient: PRESCRIBE: lisinopril 10 mg oral tablet, one po daily, # 90, RF: 3. (Transmitted by Debbie Morse, DO) PRESCRIBE: Lipitor 20 mg oral tablet, one po daily, # 90, RF: 3. (Transmitted by Debbie Morse, DO) PRESCRIBE: HumaLOG KwikPen 100 units/mL subcutaneous solution, 10-15 units sq wi th evening meal, # 5, RF: 5. (Transmitted by Debbie Morse, DO) PRESCRIBE: atenolol 25 mg oral tablet, One tablet daily, # 90, RF: 3. (Transmitted by Debbie Morse, DO) PRESCRIBE: allopurinol 300 mg oral tablet, one po daily, # 90, RF: 3. (Transmitted by Debbie Morse, ) get Dr. Robles's consults ORDERED/ADVISED: - CBC with diff (automated) ICD9 Codes (250.02, 272.4, 401.9) - CMP (Complete Metabolic Panel) ICD9 Codes (250.02, 272.4, 401.9) - HgAc ICD9 Codes (250.02, 272.4, 401.9) - Lipid Panel ICD9 Codes (250.02, 272.4, 401.9) - Urine microalbumin ICD9 Codes (250.02, 272.4, 401.9) - Uric Acid (gout) ICD9 Codes (250.02, 272.4, 401.9) - PSA, total (Prostate Specific Antigen) (prostatism) ICD9 Codes (250.02, 272.4, 401.9) 09/20/2013 09:38:43 Instructions printed and provided to patient: CHANGED Current Meds: HumaLOG KwikPen 100 units/mL subcutaneous solution ADDED Current Meds: metFORMIN 500 mg oral tablet, one po bid pc, # 0, check bs and bp when you are having shakiness Need to take the bull by the horn....you know what to do and have done it in the past. If you find that your bs is too low, cut metformin in half and if bp is too low cut the atenolol in half. 30minutes FTF 07/21/2013 11:37:47 ORDERED/ADVISED: - EKG ICD9 Codes (250.00, 401.9) 50% of this 60 minute face to face visit was spent discussing the diagnosis, natural history of the disease, risks/benefits of and various treatment options. Diabetes and control. He knows what to do. Will not qualify untill he gets his diabetes under control....reviewed regs with him ORDERED/ADVISED: - Annette Moore (Opthamalogy) ([facility] eye eval due to diabetes) ORDERED/ADVISED: - Darcy Robles (Endocrinology) ([facility] liscense requirement due to diabetes.) 05/26/2013 11:27:52 ORDERED/ADVISED: - EKG ICD9 Codes (250.00, 401.9) 50% of this 60 minute face to face visit was spent discussing the diagnosis, natural history of the disease, risks/benefits of and various treatment options. Diabetes and control. He knows what to do. Will not qualify untill he gets his diabetes under control....reviewed regs with him 03/12/2013 08:39:35 DISCONTINUE: propranolol 10 mg oral tablet one po daily prn tremor PRESCRIBE: BD ultrafine needles for insulin, use as directed qid, # 100, RF: 5. PRESCRIBE: HumaLOG KwikPen 100 units/mL subcutaneous solution, 10-15 units sq tid with meals, # 5, RF: 5. DISCONTINUE: NovoLog FlexPen 100 units/mL subcutaneous solution use as directed right now about 25 units daily but increase as directed ORDERED/ADVISED: - CBC with diff (automated) ICD9 Codes (414.00, 250.02, 401.9) - CMP (Complete Metabolic Panel) ICD9 Codes (414.00, 250.02, 401.9) - Lipid Panel ICD9 Codes (414.00, 250.02, 401.9) - PSA, total (Prostate Specific Antigen) (prostatism) ICD9 Codes (414.00, 250.02, 401.9) ORDERED/ADVISED: - Blood Draw ICD9 Codes (414.00, 250.02, 401.9) 11/04/2012 11:10:05 Instructions printed and provided to patient: PRESCRIBE: Viagra 100 mg oral tablet, use as directed, # 6, RF: 5. (Transmitted by Debbie Morse DO) PRESCRIBE: NovoLog FlexPen 100 units/mL subcutaneous solution, use as directed right now about 25 units daily but increase as directed, # 5, RF: 5. (Transmitted by Debbie Morse DO) PRESCRIBE: lisinopril 10 mg oral tablet, one po daily, # 90, RF: 3. (Transmitted by Debbie Morse DO) PRESCRIBE: Lipitor 20 mg oral tablet, one po daily, # 90, RF: 3. (Transmitted by Debbie Morse DO) PRESCRIBE: atenolol 25 mg oral tablet, One tablet daily, # 90, RF: 3. (Transmitted by Debbie Morse DO) PRESCRIBE: allopurinol 300 mg oral tablet, one po daily, # 90, RF: 3. (Meléndez smitted by Debbie Morse DO) ORDERED/ADVISED: - CBC with diff (automated) ICD9 Codes (250.02, 272.4, 401.9) - CMP (Complete Metabolic Panel) ICD9 Codes (250.02, 272.4, 401.9) - Lipid Panel ICD9 Codes (250.02, 272.4, 401.9) - PSA, total (Prostate Specific Antigen) (prostatism) ICD9 Codes (250.02, 272.4, 401.9) PROVIDED HM: Screening for Diabetic Retinopathy Given: needs an eye exam PROVIDED HM: Screening for Lipid Disorders in Adults (Male) Given: ordered today PROVIDED HM: Screening for Colorectal Cancer in Adults Aged 50-75 yrs Given: No colon PROVIDED HM: Recommendations for Diabetic Foot Care Given: fine PROVIDED HM: Recommendations for Testing HgbA1C in Individuals with Diabetes Mellitus Given: 8.7% PROVIDED HM: Counseling to Prevent Tobacco Use and Tobacco-Caused Disease in Adults Given: NI PROVIDED HM: Screening for Diabetic Nephropathy Given: ordered today PROVIDED HM: Screening for Diabetic Neuropathy Given: ordered today ORDERED/ADVISED: - Urinalysis ICD9 Codes (250.02, 272.4, 401.9) - Urine microalbumin ICD9 Codes (250.02, 272.4, 401.9) 50% of this visit was spent discussing the diagnosis, natural history of the disease, risks/benefits of and various treatment options. molst and proxy to complete at later date. 06/12/2012 10:23:59 [facility] 05/25/2012 09:16:46 Instructions printed and provided to patient: PRESCRIBE: propranolol 10 mg oral tablet, one po daily prn tremor, # 30, RF: 5. 50% of this (30 minute) visit was spent discussing the diagnosis, natural history of the disease, risks/benefits of and various treatment options. He will lower his dose of caffeine and I will let him try propranolol for social situations. REVIEWED EBM: [place] for 'Essential Tremor Syndrome' ORDERED/ADVISED: - TSH ICD9 Codes (333.1) 05/06/2012 09:14:51 Instructions printed and provided to patient: PRESCRIBE: Robitussin AC, one or two tsp po qid prn cough, # 200, RF: 1. PROVIDED HM: Recommendations for Testing HgbA1C in Individuals with Diabetes Mellitus Given: 7.6% today in the office. Influenza A and B neg ORDERED/ADVISED: - CBC with diff (automated) ICD9 Codes (414.00, 250.02, 600.9, 556.9, 401.9) - CMP (Complete Metabolic Panel) ICD9 Codes (414.00, 250.02, 600.9, 556.9, 401.9) - HgA1c ICD9 Codes (414.00, 250.02, 600.9, 556.9, 401.9) - Lipid Panel ICD9 Codes (414.00, 250.02, 600.9, 556.9, 401.9) - PSA, total (Prostate Specific Antigen) ICD9 Codes (414.00, 250.02, 600.9, 556.9, 401.9) - Urine microalbumin ICD9 Codes (414.00, 250.02, 600.9, 556.9, 401.9) 01/15/2012 11:25:41 Instructions printed and provided to patient: PRESCRIBE: BD ultrafine needles for insulin, use as directed qid, # 100, RF: 5. (Transmitted by Debbie Morse DO) PRESCRIBE: Viagra 100 mg oral tablet, use as directed, # 6, RF: 5. (Transmitted by Debbie Morse DO) PRESCRIBE: lisinopril 10 mg oral tablet, one po daily, # 90, RF: 1. (Transmitted by Debbie Morse DO) PRESCRIBE: Lipitor 20 mg oral tablet, one po daily, # 90, RF: 1. (Transmitted by Debbie Morse DO) PRESCRIBE: atenolol 25 mg oral tablet, One tablet daily, # 90, RF: 1. (Transmitt ed by Debbie Morse DO) PRESCRIBE: NovoLog FlexPen 100 units/mL subcutaneous solution, see sliding scale, # 5, RF: 5. (Transmitted by Debbie Morse DO) ORDERED/ADVISED: - Urine microalbumin (aodm) ORDERED/ADVISED: - Urine microalbumin ICD9 Codes (250.02, 272.4, 401.9) PROVIDED HM: Recommendations for Testing HgbA1C in Individuals with Diabetes Mellitus Given: 6.8% 07/22/2011 11:36:33 Instructions printed and provided to patient: PRESCRIBE: Viagra 100 mg oral tablet, use as directed, # 6, RF: 5. (Transmitted by Debbie Morse DO) PRESCRIBE: lisinopril 10 mg oral tablet, one po daily, # 90, RF: 3. (Transmitted by Debbie Morse DO) PRESCRIBE: Lipitor 20 mg oral tablet, one po daily, # 90, RF: 3. (Transmitted by Debbie Morse DO) PRESCRIBE: atenolol 25 mg oral tablet, One tablet daily, # 90, RF: 3. (Transmitted by Debbie Morse DO) PRESCRIBE: allopurinol 300 mg oral tablet, one po daily, # 90, RF: 3. (Meléndez smitted by Gisel Hassan PROVIDED HM: Aspirin for the Primary Prevention of Myocardial Infarction Given: Longstanding PROVIDED HM: Counseling to Prevent Tobacco Use and Tobacco-Caused Disease in Adults Given: NI PROVIDED HM: Recommendations for Diabetic Foot Care Given: NI PROVIDED HM: Recommendations for Testing HgbA1C in Individuals with Diabetes Mellitus Given: last done 3 months ago and 5.9% PROVIDED HM: Screening for Colorectal Cancer in Adults Aged 50-75 yrs Given: No colon left PROVIDED HM: Screening for High Blood Pressure in Adults Given: 140/80 PROVIDED HM: Screening for Lipid Disorders in Adults (Male) Given: LDL 87 a year ago PROVIDED HM: Screening for Diabetic Nephropathy Given: Neg 11/18 PROVIDED HM: Screening for Diabetic Neuropathy Given: NI PROVIDED HM: Screening for Diabetic Retinopathy Given: done 4weeks ago in [place]. ORDERED/ADVISED: - CBC with diff (automated) ICD9 Codes (414.00, 250.00, 600.9, 272.4, 401.9) - CMP (Complete Metabolic Panel) ICD9 Codes (414.00, 250.00, 600.9, 272.4, 401.9) - HgA1c ICD9 Codes (414.00, 250.00, 600.9, 272.4, 401.9) - Lipid Panel ICD9 Codes (414.00, 250.00, 600.9, 272.4, 401.9) - PSA, total (Prostate Specific Antigen) ICD9 Codes (414.00, 250.00, 600.9, 272.4, 401.9) ORDERED/ADVISED: - Blood Draw ICD9 Codes (414.00, 250.00, 600.9, 272.4, 401.9) 02/27/2011 14:11:30 PRESCRIBE: tennis elbow, use as directed, # 1, RF: 0. Instructions printed and provided to patient: PRESCRIBE: NovoLog FlexPen 100 units/mL subcutaneous solution, see sliding scale, # 5, RF: 5. (Transmitted by Mantaard, [place]) 50% of this visit was spent discussing the diagnosis, natural history of the disease, risks/benefits of and various treatment options. Instruction in insulin. Questions answered and written inst. regarding dosing supplied to patient. PRESCRIBE: Acuchek glucose test strips, use as directed tid ac for sliding scale insulin injection, # 90, RF: 5. (Transmitted by SpoonRocket, [place]) ORDERED/ADVISED: - HgAc (done in the office 8.4%) ICD9 Codes (250.02, V04.81, 401.9) 11/19/2010 09:55:18 Instructions printed and provided to patient: PRESCRIBE: Drainable [id number], Use as directed, # 1, RF: 5. PRESCRIBE: Brock-Fit Natura Stomahesive Flexible Wafer 32mm #[id number], Use as directed, # 1, RF: 5. PRESCRIBE: lisinopril 10 mg oral tablet, one po daily, # 90, RF: 3. (Transmitted by Debbie De Witt, DO) PRESCRIBE: BD ultrafine needles for insulin, use as directed qid, # 100, RF: 5. (Transmitted by Debbie Mini, DO) PRESCRIBE: atenolol 25 mg oral tablet, One tablet daily, # 90, RF: 3. (Transmitted by Debbie Mini, DO) PRESCRIBE: allopurinol 300 mg oral tablet, one po daily, # 90, RF: 3. (Transmitted by Debbie Mini, DO) DISCONTINUE: metformin 1000 mg oral tablet one po bid and one half at noon pc PRESCRIBE: NOVOLOG INSULIN ASPART INJECTION 100 UNT/ML, use as directed tid with meals and titrate as directed, # 5, RF: 5. (Transmitted by Debbie De Witt, DO) PRESCRIBE: Lantus Solostar Pen 100 units/mL subcutaneous solution, 10 units daily in the evening, # 5, RF: 3. (Transmitted by Mantaard, DO) DISCONTINUE: Humalog Mix 50/50 Pen subcutaneous suspension 22 units sq bid REVIEWED EBM: [place] for 'Diabetes Mellitus, Type 2' REVIEWED EBM: [employer]ToDate for 'AODM' (40 minutes). ORDERED/ADVISED: - CBC with diff (automated) ICD9 Codes (723.1, 414.00, 250.00) - CMP (Complete Metabolic Panel) ICD9 Codes (723.1, 414.00, 250.00) - HgAc ICD9 Codes (723.1, 414.00, 250.00) - Lipid Panel ICD9 Codes (723.1, 414.00, 250.00) - Urine microalbumin ICD9 Codes (723.1, 414.00, 250.00) PROVIDED: Patient Education (11/19/2010) diabetes Adjust Lantus insulin by following the fasting morning blood sugar. For every day that your fasting BS is above 130 increase the evening lantus dose by one unit. Novolog sliding scale Start with 8 units with largest meal and titrate. Use 4 units for breakfast and lunch and titrate. PROVIDED VACCINATION: 1 dose of Flulaval, 0.5 ml IM in the L DELTOID (Mfg: [employer] lot no. [id number], expires 09/07/2011) 06/06/2010 11:56:45 Ordered/Advised: - HgAc (AODM) 50% of this visit was spent discussing the diagnosis, natural history of the disease, risks/benefits of and various treatment options. Extensive discussion regarding the diagnosis of diabetes , its natural history, nutrition and excercise and medication effects on blood sugars. Questions were answered. PRESCRIBE: Humalog Mix 50/50 Pen subcutaneous suspension, 22 units sq bid, # 5, RF: 3. (transmitted to pharmacy) 03/14/2010 09:31:41 Testosterone Enanthate 200mg/ml.....1.5 ml left upper outer quadrant buttock.[id number] [employer] [facility] [employer]. by Dr. Hernandez Ordered/Advised: - HgAc (AODM) - CBC with diff (automated) 02/16/2010 15:36:52 Testosterone Enanthate 200mg/ml.....1.5 ml left upper outer quadrant buttock.[id number] [facility]. by Dr. Hernandez 01/17/2010 15:16:51 Testosterone Enanthate 200mg/ml.....1.5 ml right upper outer quadrant buttock.[id number] [employer] [facility]. by Dr. Hernandez 12/20/2009 10:32:27 50% of this visit (20 minutes)was spent discussing the diagnosis, natural history of the disease, risks/benefits of and various treatment options. Extensive discussion regarding the diagnosis of diabetes , its natural history, nutrition and excercise and medication effects on blood sugars. Questions were answered. Ordered/Advised: - Urine microalbumin ICD9 Codes (414.00, 250.02, 600.9, 607.84, 272.4, 556.9) PRESCRIBE: allopurinol 300 mg oral tablet, one po daily, # 90, RF: 3. (transmitted to pharmacy) PRESCRIBE: atenolol 25 mg oral tablet, One tablet Daily, # 90, RF: 3. (transmitted to pharmacy) PRESCRIBE: Lipitor 20 mg oral tablet, one po daily, # 90, RF: 3. (transmitted to pharmacy) PRESCRIBE: lisinopril 10 mg oral tablet, one po daily, # 90, RF: 3. (transmitted to pharmacy) PRESCRIBE: metformin 1000 mg oral tablet, one po bid and one half at noon pc, # 225, RF: 3. (transmitted to pharmacy) PRESCRIBE: BD ultrafine needles for insulin, use as directed bid, # 100, RF: 5. (transmitted to pharmacy) Ordered/Advised: - CMP (Complete Metabolic Panel) ICD9 Codes (414.00, 250.02, 600.9, 607.84, 272.4, 556.9) - Lipid Panel ICD9 Codes (414.00, 250.02, 600.9, 607.84, 272.4, 556.9) - HgAc ICD9 Codes (414.00, 250.02, 600.9, 607.84, 272.4, 556.9) 03/31/2009 09:20:07 PRESCRIBE: Viagra 100mg, use as directed, # 6, RF: 5. PRESCRIBE: METFORMIN 1000mg, one po bid and one half at noon pc, # 75, RF: 5. PRESCRIBE: Lisinopril 10mg, one po daily, # 30, RF: 5. PRESCRIBE: Lipitor 20mg, one po daily, # 30, RF: 5. DISCONTINUE: Lantus insulin. PRESCRIBE: Lancets, use as directed, # 90, RF: 3. DISCONTINUE: Insulin syringes .5cc. PRESCRIBE: BD ultrafine needles for insulin, use as directed bid, # 100, RF: 5. DISCONTINUE: BD ultrafine mini pen needles. PRESCRIBE: Humalog 50/50 pens, 45 units bid sq, # 3months, RF: 3. PRESCRIBE: ATENOLOL 25 MG, One tablet Daily, # 30, RF: 5. PRESCRIBE: Acuchek glucose test strips, use as directed daily, # 3months, RF: 3. PRESCRIBE: ALLOPURINOL 300 MG, one po daily, # 30, RF: 5. ADVISED/ORDERED: CBC with diff Liver profile Lipid profile BMP HgAc PSA ADVISED/ORDERED: Diabetic Eye exam recommended. He hasn't done this within the past year. He sees Dr. Alfonso. Diabetic foot exam done today 50% of this visit (20 minutes) was spent discussing diagnoses and treatment options as well as R/B of various options. Extensive discussion regarding the diagnosis of diabetes , its natural history, nutrition and excercise and medication effects on blood sugars. Questions were answered. Labs drawn in office VACCINATION: First dose of H1N1, 0.5 ml IM in the Left deltoid (Mfg: [id number] lot no. [id number], expires 09/06/2009) 08/15/2008 09:58:37 PRESCRIBE: BD ultrafine needles for insulin, use as directed bid, # 60, RF: 5. 50% of this visits was spent discussing diagnoses and treatment options as well as R/B of various options. Extensive discussion regarding the diagnosis of diabetes , its natural history, nutrition and excercise and medication effects on blood sugars. Questions were answered. Humalog 50/50 insulin both vial and pen samples he will get back to me which he wants. 06/24/2008 14:09:38 PRESCRIBE: Lisinopril 10mg, one po daily, # 30, RF: 5. PRESCRIBE: Lantus insulin, 45 units sq daily, # 30, RF: 5. PRESCRIBE: METFORMIN 1000mg, one po bid and one half at noon pc, # 75, RF: 5. PRESCRIBE: Lipitor 20mg, one po daily, # 30, RF: 5. PRESCRIBE: ATENOLOL 25 MG, One tablet Daily, # 30, RF: 5. PRESCRIBE: ALLOPURINOL 300 MG, one po daily, # 30, RF: 5. PRESCRIBE: Acuchek glucose test strips, use as directed daily, # 3months, RF: 3. PRESCRIBE: Lancets, use as directed, # 90, RF: 3. PRESCRIBE: Insulin syringes .5cc, use as directed, # 100, RF: 3. ADVISED/ORDERED: Complete Blood Count (CBC) Basic Metabolic Panel (BMP) Liver Function Tests (LFTs) Lipids HgAc Needs to resolve rash in 4-6 weeks or RTO Extensive discussion regarding the diagnosis of diabetes , its natural history, nutrition and excercise and medication effects on blood sugars. Questions were answered. VITAL SIGNS Encounter Height (in) We ight (lb) BMI (kg/m2) BP Sys (mmHg) BP Wirght (mmHg) Heart Rate (/min) O2 % BldC Oximetry O2 % BldC Oximetry (on O2) Body Temp erature Respiratory Rate (/min) Head Circumf OFC by Tape measure 11/20/2020 09:55:18 74 2 13 27.3 98 62 71 98 -- 98.3 F -- -- 10/30/2020 08:25:19 74 2 14 27.5 148 84 96 98 -- 98.2 F -- -- 01/07/2020 12:28:49 74 2 25 28.9 128 70 76 98 -- 98.6 F -- -- 05/17/2019 14:26:42 -- -- -- 120 80 79 98 -- -- -- -- 05/12/2019 08:23:59 72 2 17 29.4 116 70 68 98 -- -- -- -- 12/25/2018 11:00:16 72 2 20 29.8 -- -- 75 98 -- -- -- -- 09/21/2018 09:27:25 72 2 16 29.3 140 70 -- -- -- -- - - -- 07/27/2018 15:09:01 -- -- -- 106 64 70 96 -- -- -- -- 07/06/2018 11:57:31 72 2 22 30.1 120 70 93 96 -- -- -- -- 12/29/2017 11:43:59 72 -- -- 104 72 74 97 -- -- -- -- 01/17/2017 13:59:40 72 2 43 33.0 148 88 86 97 -- -- -- -- 10/23/2016 14:17:10 72 2 31 31.3 130 70 72 98 -- -- -- -- 10/23/2016 14:17:10 72 2 31 31.3 130 70 72 98 -- -- -- -- 09/16/2016 09:17:04 72 2 26 30.7 128 84 74 97 -- -- -- -- 01/17/2016 10:41:29 72 2 36 32.0 110 60 73 98 -- -- -- -- 08/14/2015 11:10:52 -- -- -- 104 62 94 97 -- -- -- -- 05/15/2015 08:28:44 72 2 40 32.5 102 60 96 96 -- -- -- -- 01/30/2015 08:36:25 72 2 42 32.8 110 66 67 97 -- -- -- -- 12/09/2014 11:50:27 72 2 40 32.5 116 68 71 97 -- -- -- -- 05/30/2014 08:55:58 72 2 43 33.0 110 64 62 99 -- -- -- -- 04/29/2014 08:26:44 72 2 43 33.0 120 78 72 98 -- -- -- -- 11/17/2013 12:26:03 72 2 43 33.0 116 74 79 98 -- -- -- -- 09/20/2013 09:38:43 72 2 49 33.8 98 60 70 97 -- -- -- -- 07/21/2013 11:37:47 72 2 49 33.8 142 84 93 96 -- -- -- -- 05/26/2013 11:27:52 72 2 46 33.4 110 72 60 98 -- -- -- -- 03/12/2013 08:39:35 72 2 49 33.8 122 72 81 -- -- -- - - -- 11/04/2012 11:10:05 72 2 59 35.2 104 60 82 -- -- -- - - -- 06/12/2012 10:23:59 72 2 41 32.8 122 80 81 -- -- -- - - -- 05/25/2012 09:16:46 72 2 41 32.8 140 72 66 -- -- -- - - -- 05/06/2012 09:14:51 72 2 41 32.8 114 70 85 -- -- 97.8 F -- -- 01/15/2012 11:25:41 72 2 36 32.1 110 70 65 -- -- -- - - -- 07/22/2011 11:36:33 -- -- -- 140 82 67 -- -- -- - - -- 02/27/2011 14:11:30 73 2 47 32.7 120 80 95 -- -- -- - - -- 11/19/2010 09:55:18 73 2 42 32.0 108 78 81 -- -- -- - - -- 06/06/2010 11:56:45 73 2 33 30.9 110 70 81 -- -- -- - - -- 03/14/2010 09:31:41 -- 2 41 -- -- -- - - -- -- -- - - -- 02/16/2010 15:36:52 -- -- -- 114 74 -- -- -- -- - - -- 12/20/2009 10:32:27 73 2 36 31.3 118 80 63 -- -- -- - - -- 03/31/2009 09:20:07 73 2 50 33.2 114 74 77 -- -- -- - - -- 08/15/2008 09:58:37 73 2 41 32.0 108 72 71 -- -- -- - - -- 06/24/2008 14:09:38 73 2 42 32.1 126 80 65 -- -- -- - - -- GOALS No Goals Information. HEALTH CONCERNS No health concerns information is available. MENTAL STATUS No Mental Status information.
--- OUTSIDE RECORDS SUMMARY | 2021-01-26 06:51 | CCD ---
Author Author Kenney Guillaume MD [facility] Organization Kenney Guillaume MD [facility] Address [address] [place] [phone] Phone Care Team Providers Care Furniture Inspector Name Role Phone Debbie Morse DO PP [phone] MelodieDean malone DO Unavailable [phone] Reason for Referral No Reason for Referral Recorded Problems Includes: Active, inactive, and resolved Problems All Visits Onset Date - Time Resolved Date - Time Provider Co ndition Status Glaucoma Open-angle Primary 04/03/2020 - 12:00AM Monica Sewell DO Active Diabetes Mellitus Type 2 Without Complication 04/03/2020 - 12:00 AM Dean Sewell DO Active Taking Medication For Diabetes Long-term Use of Insulin 04/03/19 21 - 12:00AM Dean Sewell DO Active Cataract Senile Nuclear 04/03/2020 - 12:00AM Dean Love [facility] DO Active Dry Eye Syndrome 04/03/2020 - 12:00AM Dean agrces DO Active Vitreous Disorders Degeneration 04/03/2020 - 12:00AM Silvana Sewell DO Active Plan of Treatment Future Appointments Date Time Location Provider Extracapsular cataract removal w/IOL implant 12/01/2020 8:0 0AM Kenney Guillaume MD [facility] Kenney Guillaume MD, FACS 1 Day Post OP 12/01/2020 2:30PM Kenney Guillaume MD [facility] Da cornelius Guillaume MD, FACS Assessments Includes: Assessments for all patient encounters Findings Encounter Date Primary open-angle glaucoma TESTING - VISUAL FIELD & O CT with Dean Sewell DO 10/05/2020 Anterior subcapsular polar senile cataract 6 Month Fol low-Up with Dean Sewell DO 09/22/2020 Cortical senile cataract 6 Month Follow-Up with Dean malone DO 09/22/2020 Dry eye syndrome 6 Month Follow-Up with Dean Sewell DO 09/22/2020 Long-term use of insulin 6 Month Follow-Up with Dean malone DO 09/22/2020 Nuclear senile cataract 6 Month Follow-Up with Dean martinez DO 09/22/2020 Posterior subcapsular polar senile cataract 6 Month Fo llow-Up with Dean Sewell DO 09/22/2020 Primary open-angle glaucoma 6 Month Follow-Up with Dean coates DO 09/22/2020 Type 2 diabetes mellitus without complication 6 Month Follow-Up with Dean Sewell DO 09/22/2020 Vitreous degeneration 6 Month Follow-Up with Dean garcia DO 09/22/2020 Dry eye syndrome NEW PATIENT WITH REFERRAL with Dean coates DO 03/31/2020 Long-term use of insulin NEW PATIENT WITH REFERRAL with Waqas Sewell DO 03/31/2020 Nuclear senile cataract NEW PATIENT WITH REFERRAL with Monica Sewell DO 03/31/2020 Primary open-angle glaucoma NEW PATIENT WITH REFERRAL with Silvana Sewell DO 03/31/2020 Type 2 diabetes mellitus without complication [facility] WITH REFERRAL with Dean Sewell DO 03/31/2020 Vitreous degeneration NEW PATIENT WITH REFERRAL with Dean Sewell DO 03/31/2020 Instructions Instructions not supported for this document typeNo Instructions Recorded Medical Equipment - Implanted Devices Includes: Current and historical DevicesNo Medical Equipment Recorded Medications Includes: Current and historical Medications Current Medications (continue as prescribed) Brimonidine Tartrate 0.2% Ophthalmic Solution 03/31/2020 Provider: Diagnosis: one drop two times a day in the left eye Timolol Maleate 0.5% Ophthalmic Solution 03/31/2020 Provider: Diagnosis: one drop two times a day in the left eye Lumigan 0.01% Ophthalmic Solution 03/31/2020 Provid er: Diagnosis: one drop at night in the right eye Allopurinol 300 MG Oral Tablet 03/31/2020 Provider: Diagnosis: HumaLOG 100 UNIT/ML Subcutaneous Solution 03/31/2020 Provider: Diagnosis: 10 units a day, 2 (twice per week) metFORMIN HCl 1000 MG Oral Tablet 03/31/2020 Provid er: Diagnosis: Jardiance 10 MG Oral Tablet 03/31/2020 Provider: Diagnosis: Lipitor 20 MG Oral Tablet 03/31/2020 Provider: Diagnosis: Aspirin 81 MG Oral Tablet Delayed Release 03/31/2020 Provider: Diagnosis: Primidone 50 MG Oral Tablet 03/31/2020 Provider: Diagnosis: Medications Administered Includes: Administered Medications in patient's chartNo Administered Medications Recorded Vital Signs Includes: Vital Signs from 11/06/2019 through 11/05/2020No Vital Signs Recorded For Specified Dates Results Includes: Results from 11/06/2019 through 11/05/2020No Results Recorded For Specified Dates History of Present Illness History of Present Illness not supported for this document typeNo History of Present Illness Recorded Social History Description Last Updated Alcohol use 3 glasses of wine per week 03/31/2020 No tobacco use 03/31/2020 Not using drugs 03/31/2020 Previous smoking history 03/31/2020 Smoking status : Former smoker 03/31/2020 Tobacco non-user 03/31/2020 Procedures and Surgical History Includes: Procedures from 11/06/2019 through 11/05/2020 Procedures Code Diagnosis Performing Provider Service Location Service Date Medical Eye Exam 83542 Type 2 diabetes fernando itus without complications, manager intermediate (current) use of insulin, Primary open-angle glaucoma, bilateral, indeterminate stage, Age-related nuclear cataract, bilateral Dean Salas MD [facility] 03/31/2020 Surgical History Last Updated History of iridotomy of right eye by laser 09/22/2020 Surgical / procedural history Ileostomy 1978, Back Surgery 1985, Prostate Surgery 199703/31/2020 Medical History Includes: Medical History in patient's chart Description Last Updated Currently wearing eyeglasses 09/22/2020 History of the retina was abnormal 201904/03/2020 History of type 2 diabetes mellitus DX: 1995 A1c: 6.2 with Darcy Robles in July FBS: 148 this am 03/31/2020 History of hypertension 03/31/2020 Family History Includes: Family History in patient's chart Description Last Updated Paternal history of family history of cancer Paternal history of heart disease 03/31/2020 Review of Systems Review of Systems not supported for this document typeNo Review of Systems Recorded Mental Status Mental Status not supported for this document typeNo Mental Status Recorded Functional Status Functional Status not supported for this document typeNo Functional Status Recorded Physical Exam Physical Exam not supported for this document typeNo Physical Exam Recorded Immunizations Includes: Immunizations in patient's chartNo Immunizations Recorded Allergies Includes: Active, inactive, and resolved AllergiesNo Known Allergies Encounters Includes: Encounters from 11/06/2019 through 11/05/2020 Encounter Provider Location Date Check-In Time Check-Out Time D iagnosis Cataract Evaluation Kenney Guillaume MD [facility] 10/13/2020 12:3 5PM 2:35PM TESTING - VISUAL FIELD & OCT Dean Jackson MD [facility] 10/05/2020 8:36AM 9:21AM Glaucoma Open-angle Primary OCT DISC Kenney Guillaume MD [facility] 10/05/2020 8:36AM 9:15 AM 6 Month Follow-Up Dean Bailey MD [facility] 8:10AM 9:15AM Glaucoma Open-angle Primary, Cataract Senile Nuclear, Dry Eye Syndrome, Taking Medication For Diabetes Long-term Use of Insulin, Vitreous Disorders Degeneration, Diabetes Mellitus Type 2 Without Complication, Cataract Senile Anterior Subcapsular Polar, Cataract Senile Posterior Subcapsular Polar, Cataract Senile Cortical NEW PATIENT WITH REFERRAL Dean Bailey MD [facility] 03/31/2020 8:34AM 9:20AM Dry Eye Syndrome, Gl aucoma Open-angle Primary, Vitreous Disorders Degeneration, Taking Medication For Diabetes Long-term Use of Insulin, Diabetes Mellitus Type 2 Without Complication, Cataract Senile Nuclear Insurance Includes: Active Insurance Policies Plan Name Member ID Group # Subscriber Relationship Effective Da ruma 1 - Medicare Part [facility] ([facility]) [id number] Bj Segovia Self 2 - [employer] /PRIOR AUTHS NEEDED [id number] Guillermo jacquelin Segovia Self Advance Directives Includes: Current Advance DirectivesNo Advance Directives Recorded Health Concerns Includes: Active Health ConcernsNo Active Health Concerns Recorded Goals Includes: Active GoalsNo Active Goals Recorded Interventions Includes: Interventions for active GoalsNo Interventions Recorded Evaluations & Outcomes Includes: Evaluations & Outcomes for active GoalsNo Outcomes Recorded
--- OUTSIDE RECORDS SUMMARY | 2021-01-26 06:51 | CCD ---
Author Author [facility] Organization [facility] Address Unknown Phone Unavailable Care Team Providers Care [employer] Director Name Role Phone Travis B Darcy CADE Unavailable Unavailable Fish B Darcy CADE Unavailable Unavailable Fish B Darcy CADE Unavailable Unavailable Fish B Darcy CADE Unavailable Unavailable Fish B Darcy CADE Unavailable Unavailable Fish B Darcy CADE Unavailable Unavailable Fish B Darcy CADE Unavailable Unavailable Fish B Darcy CADE Unavailable Unavailable Fish B Darcy CADE Unavailable Unavailable Fish B Darcy CADE Unavailable Unavailable Fish B Darcy CADE Unavailable Unavailable Fish B Darcy CADE Unavailable Unavailable Fish B Darcy CADE Unavailable Unavailable Fish B Darcy CADE Unavailable Unavailable Fish B Darcy CADE Unavailable Unavailable Fish B Darcy CADE Unavailable Unavailable Fish B Darcy CADE Unavailable Unavailable Fish B Darcy CADE Unavailable Unavailable Fish B Darcy CADE Unavailable Unavailable Fish B Darcy CADE Unavailable Unavailable Fish B Darcy CADE Unavailable Unavailable Fish B Darcy CADE Unavailable Unavailable Fish B Darcy CADE Unavailable Unavailable Fish B Darcy CADE Unavailable Unavailable Fish B Darcy CADE Unavailable Unavailable Fish B Darcy CADE Unavailable Unavailable Fish B Darcy CADE Unavailable Unavailable Fish, Laurie Taveras MD Unavailable Unavailable Fish, Laurie Taveras MD Unavailable Unavailable Fish, Laurie Taveras MD Unavailable Unavailable Fish, Laurie Taveras MD Unavailable Unavailable Fish, Laurie Taveras MD Unavailable Unavailable Fish, Laurie Taveras MD Unavailable Unavailable Fish, Laurie Taveras MD Unavailable Unavailable Fish, Laurie Taveras MD Unavailable Unavailable Fish, Laurie Taveras MD Unavailable Unavailable Fish, Laurie Taveras MD Unavailable Unavailable Fish, Laurie Taveras MD Unavailable Unavailable Fish, Laurie Taveras MD Unavailable Unavailable Fish, Laurie Taveras MD Unavailable Unavailable Fish, Laurie Taveras MD Unavailable Unavailable Fish, Laurie Taveras MD Unavailable Unavailable Fish, Laurie Taveras MD Unavailable Unavailable Fish, Laurie Taveras MD Unavailable Unavailable Fish, Laurie Taveras MD Unavailable Unavailable Fish, Laurie Taveras MD Unavailable Unavailable Fish, Laurie Taveras MD Unavailable Unavailable Fish, Laurie Taveras MD Unavailable Unavailable Fish, Laurie Taveras MD Unavailable Unavailable Fish, Laurie Taveras MD Unavailable Unavailable Fish, Laurie Taveras MD Unavailable Unavailable Fish, Laurie Taveras MD Unavailable Unavailable Fish, Laurie Taveras MD Unavailable Unavailable Fish, Laurie Taveras MD Unavailable Unavailable Fish, Laurie Taveras MD Unavailable Unavailable Fish, Laurie Taveras MD Unavailable Unavailable Fish, Laurie Taveras MD Unavailable Unavailable Fish, Laurie Taveras MD Unavailable Unavailable Fish, Laurie Taveras MD Unavailable Unavailable Fish, Laurie Taveras MD Unavailable Unavailable Fish, Laurie Taveras MD Unavailable Unavailable Fish, Laurie Taveras MD Unavailable Unavailable Fish, Laurie Taveras MD Unavailable Unavailable Fish, Laurie Taveras MD Unavailable Unavailable Fish, Laurie Taveras MD Unavailable Unavailable JARAD, A AMANDA DO Unavailable Unavailable JARAD, A AMANDA DO Unavailable Unavailable JARAD, A AMANDA DO Unavailable Unavailable JARAD, A AMANDA DO Unavailable Unavailable JARAD, A AMANDA DO Unavailable Unavailable JARAD, A AMANDA DO Unavailable Unavailable JARAD, A AMANDA DO Unavailable Unavailable JARAD, A AMANDA DO Unavailable Unavailable JARAD, A AMANDA DO Unavailable Unavailable JARAD, A AMANDA DO Unavailable Unavailable JARAD, A AMANDA DO Unavailable Unavailable JARAD, A AMANDA DO Unavailable Unavailable JARAD, A AMANDA DO Unavailable Unavailable JARAD, A AMANDA DO Unavailable Unavailable JARAD, A AMANDA DO Unavailable Unavailable JARAD, A AMANDA DO Unavailable Unavailable JARAD, A AMANDA DO Unavailable Unavailable JARAD, A AMANDA DO Unavailable Unavailable JARAD, A AMANDA DO Unavailable Unavailable JARAD, A AMANDA DO Unavailable Unavailable JARAD, A AMANDA DO Unavailable Unavailable JARAD, A AMANDA DO Unavailable Unavailable JARAD, A AMANDA DO Unavailable Unavailable JARAD, A AMANDA DO Unavailable Unavailable JARAD, A AMANDA DO Unavailable Unavailable JARAD, A AMANDA DO Unavailable Unavailable JARAD, A AMANDA DO Unavailable Unavailable JARAD, A AMANDA DO Unavailable Unavailable JARAD, A AMANDA DO Unavailable Unavailable JARAD, A AMANDA DO Unavailable Unavailable JARAD, A AMANDA DO Unavailable Unavailable JARAD, A AMANDA DO Unavailable Unavailable JARAD, A AMANDA DO Unavailable Unavailable JARAD, A AMANDA DO Unavailable Unavailable JARAD, A AMANDA DO Unavailable Unavailable JARAD, A AMANDA DO Unavailable Unavailable JARAD, A AMANDA DO Unavailable Unavailable JARAD, A AMANDA DO Unavailable Unavailable JARAD, A AMANDA DO Unavailable Unavailable JARAD, A AMANDA DO Unavailable Unavailable JARAD, A AMANDA DO Unavailable Unavailable JARAD, A AMANDA DO Unavailable Unavailable JARAD, A AMANDA DO Unavailable Unavailable JARAD, A AMANDA DO Unavailable Unavailable JARAD, A AMANDA DO Unavailable Unavailable JARAD, A AMANDA DO Unavailable Unavailable JARAD, A AMANDA DO Unavailable Unavailable JARAD, A AMANDA DO Unavailable Unavailable JARAD, A AMANDA DO Unavailable Unavailable JARAD, A AMANDA DO Unavailable Unavailable JARAD, A AMANDA DO Unavailable Unavailable JARAD, A AMANDA DO Unavailable Unavailable JARAD, A AMANDA DO Unavailable Unavailable JARAD, A AMANDA DO Unavailable Unavailable JARAD, A AMANDA DO Unavailable Unavailable JARAD, A AMANDA DO Unavailable Unavailable JARAD, A AMANDA DO Unavailable Unavailable JARAD, A AMANDA DO Unavailable Unavailable JARAD, A AMANDA DO Unavailable Unavailable JARAD, A AMANDA DO Unavailable Unavailable JARAD, A AMANDA DO Unavailable Unavailable JARAD, A AMANDA DO Unavailable Unavailable JARAD, A AMANDA DO Unavailable Unavailable JARAD, A AMANDA DO Unavailable Unavailable Annette Moore MD Unavailable Unavailable Annette Moore MD Unavailable Unavailable Annette Moore MD Unavailable Unavailable Annette Moore MD Unavailable Unavailable Annette Moore MD Unavailable Unavailable Annette Moore MD Unavailable Unavailable Annette Moore MD Unavailable Unavailable Annette Moore MD Unavailable Unavailable Annette Moore MD Unavailable Unavailable Annette Moore MD Unavailable Unavailable Annette Moore MD Unavailable Unavailable Annette Moore MD Unavailable Unavailable Annette Moore MD Unavailable Unavailable Annette Moore MD Unavailable Unavailable Oscar, Noaman MD Unavailable Unavailable Oscar, Noaman MD Unavailable Unavailable Oscar, Noaman MD Unavailable Unavailable Oscar, Noaman MD Unavailable Unavailable Oscar, Noaman MD Unavailable Unavailable Oscar, Noaman MD Unavailable Unavailable Oscar, Noaman MD Unavailable Unavailable Oscar, Noaman MD Unavailable Unavailable Oscar, Noaman MD Unavailable Unavailable Oscar, Noaman MD Unavailable Unavailable Oscar, Noaman MD Unavailable Unavailable Oscar, Noaman MD Unavailable Unavailable Oscar, Noaman MD Unavailable Unavailable Oscar, Noaman MD Unavailable Unavailable Oscar, Noaman MD Unavailable Unavailable Oscar, Noaman MD Unavailable Unavailable Oscar, Noaman MD Unavailable Unavailable Oscar, Noaman MD Unavailable Unavailable Oscar, Noaman MD Unavailable Unavailable Oscar, Noaman MD Unavailable Unavailable Oscar, Noaman MD Unavailable Unavailable INES, A JAVAD DO Unavailable Unavailable INES, A JAVAD DO Unavailable Unavailable INES, A JAVAD DO Unavailable Unavailable INES, A JAVAD DO Unavailable Unavailable INES, A JAVAD DO Unavailable Unavailable INES, A JAVAD DO Unavailable Unavailable INES, A JAVAD DO Unavailable Unavailable INES, A JAVAD DO Unavailable Unavailable INES, A JAVAD DO Unavailable Unavailable INES, A JAVAD DO Unavailable Unavailable INES, A JAVAD DO Unavailable Unavailable INSE, A JAVAD DO Unavailable Unavailable INES, A JAVAD DO Unavailable Unavailable INES, A JAVAD DO Unavailable Unavailable INES, A JAVAD DO Unavailable Unavailable INES, A JAVAD DO Unavailable Unavailable INES, A JAVAD DO Unavailable Unavailable INES, A JAVAD DO Unavailable Unavailable INES, A JAVAD DO Unavailable Unavailable INES, A JAVAD DO Unavailable Unavailable INES, A JAVAD DO Unavailable Unavailable INES, A JAVAD DO Unavailable Unavailable INES, A JAVAD DO Unavailable Unavailable NETTIE, JOSE ROBERTO TAMMY PA Unavailable Unavailable NETTIE, JOSE ROBERTO TAMMY PA Unavailable Unavailable NETTIE, JOSE ROBERTO TAMMY PA Unavailable Unavailable NETTIE, OJSE ROBERTO TAMMY PA Unavailable Unavailable NETTIE, JOSE ROBERTO TAMMY PA Unavailable Unavailable NETTIE, JOSE ROBERTO TAMMY PA Unavailable Unavailable NETTIE, JOSE ROBERTO TAMMY PA Unavailable Unavailable NETTIE, JOSE ROBERTO TAMMY PA Unavailable Unavailable NETTIE, JOSE ROBERTO TAMMY PA Unavailable Unavailable NETTIE, JOSE ROBERTO TAMMY PA Unavailable Unavailable NETTIE, JOSE ROBERTO TAMMY PA Unavailable Unavailable NETTIE, JOSE ROBERTO TAMMY PA Unavailable Unavailable NETTIE, JOSE ROBERTO TAMMY PA Unavailable Unavailable NETTIE, JOSE ROBERTO TAMMY PA Unavailable Unavailable NETTIE, JOSE ROBERTO TAMMY PA Unavailable Unavailable NETTIE, JOSE ROBERTO TAMMY PA Unavailable Unavailable NETTIE, JOSE ROBERTO TAMMY PA Unavailable Unavailable NETTIE, JOSE ROBERTO TAMMY PA Unavailable Unavailable NETTIE, JOSE ROBERTO TAMMY PA Unavailable Unavailable NETTIE, JOSE ROBERTO TAMMY PA Unavailable Unavailable NETTIE, JOSE ROBERTO TAMMY PA Unavailable Unavailable NETTIE, JOSE ROBERTO TAMMY PA Unavailable Unavailable Re-disclosure Warning The records that you are about to access may contain information from federally-assisted alcohol or drug abuse programs. If such information is present, then the following federally mandated warning applies: This information has been disclosed to you from records protected by federal confidentiality rules (42 CFR part 2). The federal rules prohibit you from making any further disclosure of this information unless further disclosure is expressly permitted by the written consent of the person to whom it pertains or as otherwise permitted by 42 CFR part 2. A general authorization for the release of medical or other information is NOT sufficient for this purpose. The Federal rules restrict any use of the information to criminally investigate or prosecute any alcohol or drug abuse patient.The records that you are about to access may contain highly sensitive health information, the redisclosure of which is protected by Article 27-F of the [facility] Public Health law. If you continue you may have access to information: Regarding HIV / AIDS; Provided by facilities licensed or operated by the [facility] Office of Mental Health; or Provided by the [facility] Office for People With Developmental Disabilities. If such information is present, then the following [facility] mandated warning applies: This information has been disclosed to you from confidential records which are protected by state law. State law prohibits you from making any further disclosure of this information without the specific written consent of the person to whom it pertains, or as otherwise permitted by law. Any unauthorized further disclosure in violation of state law may result in a fine or retirement sentence or both. A general authorization for the release of medical or other information is NOT sufficient authorization for further disc losure. Allergies and Adverse Reactions Type Description Substance Reaction Status Data Source(s ) Allergy to substance No Known Allergies No known allergies (situation ) MARKIE (Kenney Lanza MD [facility]) Allergy to substance No Known Allergies No known allergies (situation ) MARKIE (Kenney Lanza MD [facility]) Allergy to substance No Known Allergies No known allergies (situation ) MARKIE (Kenney Lanza MD [facility]) Allergy to substance No Known Allergies No known allergies (situation ) MARKIE (Kenney Lanza MD [facility]) Family History Family Member Name Family Member Gender Family Member Status Date o f Status Description Data Source(s) Unknown Male Problem [facility] ([facility] () Unknown Male Problem [facility] ([facility]) Unknown Male Problem [facility] ([facility]) Encounters Encounter Providers Location Date Indications Data Source(s ) Outpatient Attender: AMANDA ABRAHAM DO 11/20/2020 11:12:00 A M [facility] Outpatient Attender: AMANDA Orlandoerrer: AMANDA ABRAHAM DO EMERGENCY ROOM[facility] 11/17/2020 06:49:00 AM EDT - 11/17/2020 06:49:00 AM [facility] Outpatient<td ID="encounterTypeDescripti onID0">Cataract Evaluation</td><td></td><td>Kenney Guillaume MD [facility]</td><td>10/13/2020</td><td>12:35PM</td><td>2:35PM</td><td></td> Kenney Guillaume MD [facility] 10/13/2020 12:35:00 PM EDT - 10/13/2020 02:35:00 PM EDT MARKIE (Kenney Lanza MD [facility]) <td ID="encounterTypeDescriptionID2">[facility]</td><td></td><td>Kenney Guillaume MD [facility]</td><td>10/05/2020</td><td>8:36AM</td><td>9:15AM</td><td></td>Outpatient Kenney Guillaume MD [facility] 10/05/2020 08:3 6:00 AM EDT - 10/05/2020 09:15:00 AM EDT MARKIE (Kenney Lanza MD [facility]) <td ID="encounterTypeDescriptionID1">LUCIANO TING - VISUAL FIELD & OCT</td><td>Javad Sewell DO</td><td>Kenney Guillaume MD [facility]</td><td>10/05/2020</td><td>8:36AM</td><td>9:21AM</td><td><content ID="encounterDiagnosisID1-0">Glaucoma Open-angle Primary</content></td>Outpatient Attender: JAVAD Bailey MD [facility] 10/05/2020 08:36:00 AM EDT - 10/05/2020 09:21:00 AM ED T Glaucoma Open- angle PrimaryGlaucoma Open-angle PrimaryGlaucoma Open-angle Primary MARKIE (Kenney Lanza MD [facility]) 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 <td ID="encounterTypeDescriptionID3">6 M onth Follow-Up</td><td>Javad Sewell DO</td><td>Kenney Guillaume MD [facility]</td><td>09/22/2020</td><td>8:10AM</td><td>9:15AM</td><td><content ID="encounterDiagnosisID3-0">Glaucoma Open-angle Primary</content>, <content ID="encounterDiagnosisID3-1">Cataract Senile Nuclear</content>, <content ID="encounterDiagnosisID3-2">Dry Eye Syndrome</content>, <content ID="encounterDiagnosisID3-3">Taking Medication For Diabetes Long-term Use of Insulin</content>, <content ID="encounterDiagnosisID3-4">Vitreous Disorders Degeneration</content>, <content ID="encounterDiagnosisID3-5">Diabetes Mellitus Type 2 Without Complication</content>, <content ID="encounterDiagnosisID3-6"> Cataract Senile Anterior Subcapsular Polar</content>, <content ID="encounterDiagnosisID3-7">Cataract Senile Posterior Subcapsular Polar</content>, <content ID="encounterDiagnosisID3-8">Cataract Senile Cortical</content></td>Outpatient Attender: JAVAD Yeh MD [facility] 09/22/2020 08:10:00 AM EDT - 09/22/2020 09:15:00 AM ED T Cataract Senile CorticalCataract Senile Posterior Subcapsular PolarCataract Senile Anterior Subcapsular PolarCataract Senile CorticalCataract Senile Posterior Subcapsular PolarCataract Senile Anterior Subcapsular PolarCataract Senile CorticalCataract Senile Posterior Subcapsular PolarCataract Senile Anterior Subcapsular PolarCataract Senile CorticalCataract Senile Posterior Subcapsular PolarCataract Senile Anterior Subcapsular PolarDiabetes Mellitus Type 2 Without ComplicationVitreous Disorders DegenerationTaking Medication For Diabetes Long- term Use of InsulinDry Eye SyndromeCataract Senile NuclearGlaucoma Open-angle PrimaryDiabetes Mellitus Type 2 Without ComplicationVitreous Disorders DegenerationTaking Medication For Diabetes Long-term Use of InsulinDry Eye SyndromeCataract Senile NuclearGlaucoma Open-angle PrimaryDiabetes Mellitus Type 2 Without ComplicationVitreous Disorders DegenerationTaking Medication For Diabetes Long-term Use of InsulinDry Eye SyndromeCataract Senile NuclearGlaucoma Open-angle PrimaryDiabetes Mellitus Type 2 Without ComplicationVitreous Disorders DegenerationTaking Medication For Diabetes Long-term Use of InsulinDry Eye SyndromeCataract Senile NuclearGlaucoma Open-angle Primary MARKIE (Kenney Lanza MD [facility]) Cataract Senile Cortical Cataract Senile Posterior Subcapsular Po lar Cataract Senile Anterior Subcapsular Saurabh ar Cataract Senile Cortical Cataract Senile Posterior Subcapsular Po lar Cataract Senile Anterior Subcapsular Saurabh ar Cataract Senile Cortical Cataract Senile Posterior Subcapsular Po lar Cataract Senile Anterior Subcapsular Saurabh ar Cataract Senile Cortical Cataract Senile Posterior Subcapsular Po lar Cataract Senile Anterior Subcapsular Saurabh ar Diabetes Mellitus Type 2 Without Complic ation Vitreous Disorders Degeneration Taking Medication For Diabetes Long-term Use of Insulin Dry Eye Syndrome Cataract Senile Nuclear Glaucoma Open-angle Primary Diabetes Mellitus Type 2 Without Complic ation Vitreous Disorders Degeneration Taking Medication For Diabetes Long-term Use of Insulin Dry Eye Syndrome Cataract Senile Nuclear Glaucoma Open-angle Primary Diabetes Mellitus Type 2 Without Complic ation Vitreous Disorders Degeneration Taking Medication For Diabetes Long-term Use of Insulin Dry Eye Syndrome Cataract Senile Nuclear Glaucoma Open-angle Primary Diabetes Mellitus Type 2 Without Complic ation Vitreous Disorders Degeneration Taking Medication For Diabetes Long-term Use of Insulin Dry Eye Syndrome Cataract Senile Nuclear Glaucoma Open-angle Primary Emergency Attender: TAMMY Garciaer: AMANDA SMITH DO 08/11/2020 11:54:00 AM EDT - 08/11/2020 11:55:00 AM EDT [facility] pital Patient discharged. Outpatient Attender: AMANDA Roberto: AMANDA ABRAHAM EMERGENCY RO[facility] 07/07/2020 01:55:00 PM EDT - 07/07/2020 01:55:00 PM [facility] Outpatient Attender: Darcy Robles MD Physical Therapy 06/19 03:15:00 PM EDT [facility] ([facility]) Outpatient Attender: AMANDA Roberto: AMANDA ABRAHAM EMERGENCY RO[facility] 05/05/2020 11:21:00 AM [facility] - 05/05/2020 11:21:00 AM [facility] <td ID="encounterTypeDescriptionID4">NEW PATIENT WITH REFERRAL</td><td>Javad Sewell DO</td><td>Kenney Guillaume MD [facility]</td><td>03/31/2020</td><td>8:34AM</td><td>9:20AM</td><td><content ID="encounterDiagnosisID4-0">Dry Eye Syndrome</content>, <content ID="encounterDiagnosisID4-1">Glaucoma Open-angle Primary</content>, <content ID="encounterDiagnosisID4-2">Vitreous Disorders Degeneration</content>, <content ID="encounterDiagnosisID4-3">Taking Medication For Diabetes Long-term Use of Insulin</content>, <content ID="encounterDiagnosisID4-4">Diabetes Mellitus Type 2 Without Complication</content>, <content ID="encounterDiagnosisID4-5">Cataract Senile Nuclear</content></td>Outpatient Attender: JAVAD Bailey MD [facility] 03/31/2020 08:34:00 AM EST - 03/31/2020 09:20:00 AM ES T Cataract Senile NuclearDiabetes Mellitus Type 2 Without ComplicationTaking Medication For Diabetes Long-term Use of InsulinVitreous Disorders DegenerationGlaucoma Open-angle PrimaryDry Eye SyndromeCataract Senile Nuclear Diabetes Mellitus Type 2 Without ComplicationTaking Medication For Diabetes Long-term Use of InsulinVitreous Disorders DegenerationGlaucoma Open-angle PrimaryDry Eye SyndromeCataract Senile NuclearDiabetes Mellitus Type 2 Without ComplicationTaking Medication For Diabetes Long-term Use of InsulinVitreous Disorders DegenerationGlaucoma Open-angle PrimaryDry Eye SyndromeCataract Senile NuclearDiabetes Mellitus Type 2 Without ComplicationTaking Medication For Diabetes Long-term Use of InsulinVitreous Disorders DegenerationGlaucoma Open- angle PrimaryDry Eye Syndrome MARKIE (Kenney Lanza MD [facility]) Cataract Senile Nuclear Diabetes Mellitus Type 2 Without Complic ation Taking Medication For Diabetes Long-term Use of Insulin Vitreous Disorders Degeneration Glaucoma Open-angle Primary Dry Eye Syndrome Cataract Senile Nuclear Diabetes Mellitus Type 2 Without Complic ation Taking Medication For Diabetes Long-term Use of Insulin Vitreous Disorders Degeneration Glaucoma Open-angle Primary Dry Eye Syndrome Cataract Senile Nuclear Diabetes Mellitus Type 2 Without Complic ation Taking Medication For Diabetes Long-term Use of Insulin Vitreous Disorders Degeneration Glaucoma Open-angle Primary Dry Eye Syndrome Cataract Senile Nuclear Diabetes Mellitus Type 2 Without Complic ation Taking Medication For Diabetes Long-term Use of Insulin Vitreous Disorders Degeneration Glaucoma Open-angle Primary Dry Eye Syndrome Outpatient Attender: AMANDA ABRAHAM DO EMERGENCY ROOM-[facility] RO 07/09/2018 07:04:00 AM [facility] - 07/09/2018 07:04:00 AM [facility] Outpatient Attender: AMANDA ABRAHAM DO 01/14/2018 08:00:00 [facility] Outpatient Attender: Annette Moore MD 01/17/2016 02:00:00 [facility] Immunizations Vaccine Date Status Description Data Source(s) COVID-19 VACCINE, MRNA-[id number], LNP-S (MODERNA)/PF 04/20/2020 1 2:00:00 AM [facility] COVID-19 VACCINE, MRNA-1273, LNP-S (MODERNA)/PF 03/23/2020 1 2:00:00 AM EST completed [facility] COVID-19 VACCINE Moderna 03/23/2020 12:00:00 AM EST completed [facility] Vaccine Series Complete: NOThis Data was Submitted to [facility] Via [facility]. Medications Medication Brand Name Start Date Product Form Dose Route Admi nistrative Instructions Pharmacy Instructions Status Indications Reaction Description Data Source(s) Cephalexin 500 MG Oral Capsule CEPHALEXIN 07/10/2020 12:00:00 AM EDT capsule 14 TAKE ONE CAPSULE BY MOUTH EVERY 12 HOURS TAKE ONE CAPS ULE BY MOUTH EVERY 12 HOURS SOLD: 07/11/2020 [facility] Ozempic (1 MG/Dose) Ozempic (1 MG/Dose) 06/19/2020 12:00:00 AM EDT active [facility] ([facility]) empagliflozin 10 MG Oral Tablet [Jardiance] Jardiance 10 MG Oral Tablet Jardiance 10 MG Oral Tablet 03/31/2020 12:00:00 AM EST 1 active empagliflozin 10 MG Oral Tablet [Jardiance] MARKIE (Kenney Lanza MD [facility]) atorvastatin 20 MG Oral Tablet [Lipitor] Lipitor 20 MG Oral Tablet Lipitor 20 MG Oral Tablet 03/31/2020 12:00:00 AM EST 1 activ e atorvastatin 20 MG Oral Tablet [Lipitor] MARKIE (Kenney Lanza MD [facility]) Aspirin 81 MG Delayed Release Oral Table t Aspirin 81 MG Oral Tablet Delayed Release Aspirin 81 MG Oral Tablet Delayed Release 03/31/2020 12:00:00 AM EST 1 active aspirin 81 MG Delayed Re lease Oral Tablet MARKIE (Kenney Lanza MD [facility]) Primidone 50 MG Oral Tablet Primidone 50 MG Oral Tablet 03/11 12:00:00 AM EST 1 active primidone 50 MG O ral Tablet MARKIE (Kenney Lanza MD [facility]) Brimonidine tartrate 2 MG/ML Ophthalmic Solution Brimonidine Tartrate 0.2% Ophthalmic Solution Brimonidine Tartrate 0.2% Ophthalmic Solution 03/31/19 12:00:00 AM EST active brimonidine tartrate 2 MG/ML Ophthalmic Solution MARKIE (Kenney Lanza MD [facility]) Timolol Maleate 0.5% Ophthalmic Solution Timolol Nery te 0.5% Ophthalmic Solution 03/31/2020 12:00:00 AM EST active 12 HR timolol 5 MG/ML Ophthalmic Solution MARKIE (Kenney Lanza MD [facility]) bimatoprost 0.1 MG/ML Ophthalmic Solutio n [Lumigan] Lumigan 0.01% Ophthalmic Solution Lumigan 0.01% Ophthalmic Solution 03/31/2020 12:00:00 AM EST active bimatoprost 0.1 MG/ML Ophthalmic Solution [Lumigan] [facility] ([facility] Lanza MD [facility]) Allopurinol 300 MG Oral Tablet Allopurinol 300 MG Oral Table t 03/31/2020 12:00:00 AM EST 1 active allopuri nol 300 MG Oral Tablet MARKIE (Kenney Lanza MD [facility]) Insulin Lispro 100 UNT/ML Injectable Cuca ution [Humalog] HumaLOG 100 UNIT/ML Subcutaneous Solution HumaLOG 100 UNIT/ML Subcutaneous Solution 03/31/2020 12:00:00 AM EST active insulin lispro 100 UNT/ML Injectable Solution [Humalog] MARKIE (Kenney Lanza MD [facility]) Metformin hydrochloride 1000 MG Oral Tablet metFORMIN HCl 1000 MG Oral Tablet metFORMIN HCl 1000 MG Oral Tablet 03/31/2020 12:00:00 AM EST 1 active metformin hydrochloride 1000 MG Oral Tablet MARKIE ( Kenney Lanza MD [facility]) Insurance Providers Payer name Policy type / Coverage type Policy ID Covered green party ID Covered green party's relationship to davis Policy Davis Plan Information [facility] MEDICARE 2 [id number] 1 [id number] [place] U [id number] Spouse [id number] [place] [id number] S [id number] [place] [id number] S [id number] [place] [id number] S [id number] MEDICARE A [id number] Self [id number] A [facility] MEDICARE DIVISION [id number] [facility] MEDICARE DIVISION [id number] [id number] [facility] MEDICARE DIVISION [id number] S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
--- OUTSIDE RECORDS SUMMARY | 2021-01-26 06:51 | CCD ---
Author Author Debbie Morse DO Organization Debbie Morse DO Address [address] [facility] [address] [place], [place] [id number] Care Team Providers Care Cable Hooker Name Role Phone Mini WELCH MA, Amandeep Pina Unavailable Debbie Morse DO Unavailable Debbie Morse DO PCP ENCOUNTERS Encounter Performer Loca tion Date Other hyperlipidemia [ICD10: E78.49] Dr. Debbie Morse DO 10-30-2020 Bilateral cataracts [SNOMED-CT: 34474554] Dr. Debbie Morse DO 10-30-2020 Diabetic nephropathy [SNOMED-CT: 267917362] Dr. Debbie Morse DO 10-30-2020 CORONARY ATHEROSCLEROSIS OF UNSPECIFIED TYPE OF VE [SNOMED-CT: 55811147] N/A N/A 10-30-2020 UNSPECIFIED ESSENTIAL HYPERTENSION [SNOMED-CT: 0223185 0] N/A N/A 10-30-2020 Vitamin D deficiency [SNOMED-CT: 00832098] Dr. Debbie Morse DO 05-05-2020 Diabetic nephropathy [SNOMED-CT: 889980588] Dr. Debbie Morse DO 05-05-2020 CORONARY ATHEROSCLEROSIS OF UNSPECIFIED TYPE OF VE [SNOMED-CT: 07268283] N/A N/A 05-05-2020 UNSPECIFIED ESSENTIAL HYPERTENSION [SNOMED-CT: 9023075 0] N/A N/A 05-05-2020 Other hyperlipidemia [ICD10: E78.49] Dr. Debbie Morse DO 05-05-2020 Diabetes mellitus [SNOMED-CT: 84737194] Dr. Debbie Morse, DO 01-28-2020 On examination - aortic systolic murmur [SNOMED-CT: 898931665] Dr. Debbie Morse, DO 01-07-2020 Systolic ejection sound [SNOMED-CT: 51659156] Dr. Debbie Morse, DO 01-07-2020 Diabetes mellitus [SNOMED-CT: 61346371] Dr. Debbie Morse, DO 10-01-2019 UNSPECIFIED ESSENTIAL HYPERTENSION [SNOMED-CT: 8336496 0] N/A N/A 10-01-2019 Other hyperlipidemia [ICD10: E78.49] Dr. Debbie Morse, DO 10-01-2019 Diabetic nephropathy [SNOMED-CT: 400750377] Dr. Debbie Morse, DO 10-01-2019 Intention tremor [SNOMED-CT: 41165636] Dr. Debbie Morse, DO 10-01-2019 Leukopenia [SNOMED-CT: 96008697] Dr. Debbie Morse, DO 05-17-2019 Malaise and fatigue [SNOMED-CT: 786853675] Dr. Debbie Morse, DO 05-17-2019 Malaise and fatigue [SNOMED-CT: 365091764] Dr. Debbie Morse, DO 05-12-2019 Diabetic nephropathy [SNOMED-CT: 487204697] Dr. Debbie Morse, DO 05-12-2019 Other hyperlipidemia [ICD10: E78.49] Dr. Debbie Morse, DO 05-12-2019 Chronic tremor [SNOMED-CT: 954907592] Dr. Debbie Morse, DO 05-12-2019 Hoarseness [SNOMED-CT: 25982456] Dr. Debbie Morse, DO 05-12-2019 Vitamin D deficiency [SNOMED-CT: 90371199] Dr. Debbie Morse, DO 05-12-2019 Encounter for general adult medical exam ination without abnormal findings [ICD10: Z00.00] Amandeep Morse, DO 12-25-2018 Encounter for general adult medical exam ination without abnormal findings [ICD10: Z00.00] Amandeep Morse, DO 09-21-2018 Diabetic nephropathy [SNOMED-CT: 065020119] Dr. Debbie Morse, DO 07-27-2018 Vitamin D deficiency [SNOMED-CT: 71074000] Dr. Debbie Morse, DO 07-27-2018 Diabetes mellitus [SNOMED-CT: 10454044] Dr. Debbie Morse, DO 07-06-2018 UNSPECIFIED ESSENTIAL HYPERTENSION [SNOMED-CT: 9512912 0] N/A N/A 07-06-2018 Malaise and fatigue [SNOMED-CT: 779700219] Dr. Debbie Morse, DO 07-06-2018 Cough [SNOMED-CT: 49828329] Dr. eDb Morse, DO 07-06-2018 Diabetes mellitus [SNOMED-CT: 83273300] Dr. Debbie Morse, DO 12-29-2017 Hyperlipidemia [SNOMED-CT: 26806849] Dr. Debbie Morse, DO 12-29-2017 UNSPECIFIED ESSENTIAL HYPERTENSION [SNOMED-CT: 0507267 0] N/A N/A 12-29-2017 Intention tremor [SNOMED-CT: 67158304] Dr. Debbie Morse, DO 12-29-2017 Intention tremor [SNOMED-CT: 04373697] Dr. Debbie Morse, DO 01-17-2017 Encounter for general adult medical exam ination without abnormal findings [ICD10: Z00.00] Amandeep Morse, DO 10-23-2016 Diabetic - poor control [SNOMED-CT: 841144076] Dr. Debbie Morse, DO 09-16-2016 Intention tremor [SNOMED-CT: 88661198] Dr. Debbie Morse, DO 09-16-2016 CORONARY ATHEROSCLEROSIS OF UNSPECIFIED TYPE OF VE [SNOMED-CT: 43342618] N/A N/A 09-16-2016 Diabetes mellitus [SNOMED-CT: 75364137] Dr. Debbie Morse, DO 01-17-2016 Hyperlipidemia [SNOMED-CT: 67001378] Dr. Debbie Morse, DO 01-17-2016 ULCERATIVE COLITIS UNSPECIFIED [SNOMED-CT: 89110173] N/A N/A 01-17-2016 UNSPECIFIED ESSENTIAL HYPERTENSION [SNOMED-CT: 6983706 0] N/A N/A 01-17-2016 Other specified vaccination [ICD10: Z23] Amandeep Morse, DO 01-17-2016 Achilles tenosynovitis [SNOMED-CT: 468635963] Dr. Debbie Morse, DO 08-14-2015 Intention tremor [SNOMED-CT: 51200091] Dr. Debbie Morse, DO 05-15-2015 Malaise and fatigue [SNOMED-CT: 610496930] Dr. Debbie Morse, DO 05-15-2015 Diabetes mellitus [SNOMED-CT: 86722353] Dr. Debbie Morse, DO 05-15-2015 Diabetic - poor control [SNOMED-CT: 700858119] Dr. Debbie Morse, DO 01-30-2015 Dizziness [SNOMED-CT: 195915207] Dr. Debbie Morse, DO 01-30-2015 Intention tremor [SNOMED-CT: 66118092] Dr. Debbie Morse, DO 01-30-2015 Diabetic - poor control [SNOMED-CT: 316133877] Dr. Debbie Morse, DO 12-09-2014 ULCERATIVE COLITIS UNSPECIFIED [SNOMED-CT: 06643974] N/A N/A 12-09-2014 Hyperlipidemia [SNOMED-CT: 15831934] Dr. Debbie Morse, DO 12-09-2014 UNSPECIFIED ESSENTIAL HYPERTENSION [SNOMED-CT: 3720938 0] N/A N/A 12-09-2014 CORONARY ATHEROSCLEROSIS OF UNSPECIFIED TYPE OF VE [SNOMED-CT: 39522102] N/A N/A 12-09-2014 Benign enlargement of prostate [SNOMED-CT: 188981021] Dr. Debbie Morse, DO 12-09-2014 Influenza vaccine needed [SNOMED-CT: 2127786227177] Amandeep Morse, DO 12-09-2014 Acute rhinosinusitis [SNOMED-CT: 503982975] Dr. Debbie Morse, DO 05-30-2014 Diabetic - poor control [SNOMED-CT: 288307992] Dr. Debbie Morse, DO 04-29-2014 UNSPECIFIED ESSENTIAL HYPERTENSION [SNOMED-CT: 5085975 0] N/A N/A 04-29-2014 ULCERATIVE COLITIS UNSPECIFIED [SNOMED-CT: 52049787] N/A N/A 04-29-2014 Diabetic - poor control [SNOMED-CT: 478689401] Dr. Debbie Morse, DO 12-06-2013 UNSPECIFIED ESSENTIAL HYPERTENSION [SNOMED-CT: 5505409 0] N/A N/A 12-06-2013 Diabetic - poor control [SNOMED-CT: 241065476] Dr. eDbbie Morse, DO 11-17-2013 UNSPECIFIED ESSENTIAL HYPERTENSION [SNOMED-CT: 1669963 0] N/A N/A 11-17-2013 Diabetic - poor control [SNOMED-CT: 959549059] Dr. Debbie Morse, DO 09-20-2013 Diabetes mellitus [SNOMED-CT: 84165250] Dr. Debbie Morse, DO 07-21-2013 UNSPECIFIED ESSENTIAL HYPERTENSION [SNOMED-CT: 5238675 0] N/A N/A 07-21-2013 Diabetes mellitus [SNOMED-CT: 38400123] Dr. Debbie Morse, DO 05-26-2013 UNSPECIFIED ESSENTIAL HYPERTENSION [SNOMED-CT: 0250070 0] N/A N/A 05-26-2013 Diabetic - poor control [SNOMED-CT: 854198246] Dr. Debbie Morse, DO 03-12-2013 UNSPECIFIED ESSENTIAL HYPERTENSION [SNOMED-CT: 5801609 0] N/A N/A 03-12-2013 CORONARY ATHEROSCLEROSIS OF UNSPECIFIED TYPE OF VE [SNOMED-CT: 97996468] N/A N/A 03-12-2013 Diabetic - poor control [SNOMED-CT: 456635974] Dr. Debbie Morse, DO 11-04-2012 UNSPECIFIED ESSENTIAL HYPERTENSION [SNOMED-CT: 4623715 0] N/A N/A 11-04-2012 REDNESS OR DISCHARGE OF EYE [SNOMED-CT: 93942147] Amandeep Morse, DO 06-12-2012 PAIN IN OR AROUND EYE [SNOMED-CT: 09940208] Amandeep Morse, DO 06-12-2012 Diabetic - poor control [SNOMED-CT: 087072562] Dr. Debbie Morse, DO 05-06-2012 UNSPECIFIED ESSENTIAL HYPERTENSION [SNOMED-CT: 0430395 0] N/A N/A 05-06-2012 CORONARY ATHEROSCLEROSIS OF UNSPECIFIED TYPE OF VE [SNOMED-CT: 62211647] N/A N/A 05-06-2012 ULCERATIVE COLITIS UNSPECIFIED [SNOMED-CT: 85321161] N/A N/A 05-06-2012 UNSPECIFIED VIRAL INFECTION [SNOMED-CT: 565075045] Amandeep Morse, DO 05-06-2012 Diabetic - poor control [SNOMED-CT: 810294385] Dr. Debbie Morse, DO 01-15-2012 UNSPECIFIED ESSENTIAL HYPERTENSION [SNOMED-CT: 7416364 0] N/A N/A 01-15-2012 Diabetes mellitus [SNOMED-CT: 25262372] Dr. Debbie Morse, DO 07-22-2011 CORONARY ATHEROSCLEROSIS OF UNSPECIFIED TYPE OF VE [SNOMED-CT: 31487751] N/A N/A 07-22-2011 UNSPECIFIED ESSENTIAL HYPERTENSION [SNOMED-CT: 8555642 0] N/A N/A 07-22-2011 Diabetic - poor control [SNOMED-CT: 924705574] Dr. Debbie Morse, DO 02-27-2011 UNSPECIFIED ESSENTIAL HYPERTENSION [SNOMED-CT: 0429540 0] N/A N/A 02-27-2011 Diabetic - poor control [SNOMED-CT: 432847256] Dr. Debbie Morse, DO 11-19-2010 UNSPECIFIED ESSENTIAL HYPERTENSION [SNOMED-CT: 0694653 0] N/A N/A 11-19-2010 NEED FOR PROPHYLACTIC VACCINATION AND IN OCULATION AGAINST INFLUENZA [SNOMED-CT: 302626488] Amandeep Morse, DO 11-19-2010 Diabetes mellitus [SNOMED-CT: 24210775] Dr. Debbie Morse, DO 06-06-2010 CORONARY ATHEROSCLEROSIS OF UNSPECIFIED TYPE OF VE [SNOMED-CT: 66612841] N/A N/A 06-06-2010 CERVICALGIA [SNOMED-CT: 50325703] Grzegorz Morse, DO 06-06-2010 IMPOTENCE OF ORGANIC ORIGIN [SNOMED-CT: 784266111] Amandeep oMrse, DO 03-14-2010 IMPOTENCE OF ORGANIC ORIGIN [SNOMED-CT: 604220804] Amandeep Morse, DO 02-16-2010 IMPOTENCE OF ORGANIC ORIGIN [SNOMED-CT: 308118852] Amandeep Morse, DO 01-17-2010 Diabetic - poor control [SNOMED-CT: 518006163] Dr. Debbie Morse, DO 12-20-2009 ULCERATIVE COLITIS UNSPECIFIED [SNOMED-CT: 55332753] N/A N/A 12-20-2009 CORONARY ATHEROSCLEROSIS OF UNSPECIFIED TYPE OF VE [SNOMED-CT: 58984757] N/A N/A 12-20-2009 IMPOTENCE OF ORGANIC ORIGIN [SNOMED-CT: 629259819] Amandeep Morse, DO 12-20-2009 Diabetic - poor control [SNOMED-CT: 242420378] Dr. Debbie Morse, DO 03-31-2009 ULCERATIVE COLITIS UNSPECIFIED [SNOMED-CT: 02041384] N/A N/A 03-31-2009 CORONARY ATHEROSCLEROSIS OF UNSPECIFIED TYPE OF VE [SNOMED-CT: 04300637] N/A N/A 03-31-2009 IMPOTENCE OF ORGANIC ORIGIN [SNOMED-CT: 033860450] Amandeep Morse, DO 03-31-2009 Diabetic - poor control [SNOMED-CT: 726311183] Dr. Debbie Morse, DO 08-15-2008 Diabetes mellitus [SNOMED-CT: 11367030] Dr. 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 Debbie Morse, DO 06-28-2019 ALLERGIES AND [...] Status primidone 50 mg oral tablet, [RxNorm: 923328] primidone one po hs daily for tremor 90 10/30/2020 Active OneTouch Ultra Blue In Vitro Strip Unknown use as directed tid ac for insulin dosing Dx E11.9 270 10/30/2020 Active metFORMIN 500 mg oral tablet, extended release metFORMIN three po daily in am 270 10/30/2020 Active losartan 25 mg oral tablet, [RxNorm: 223741] losartan one po daily 90 10/31/19 Active atorvastatin 20 mg oral tablet, [RxNorm: 330334] atorvastatin one po daily 10/31/19 Active Ozempic (1 mg dose) 4 mg/3 mL subcutaneous solution semaglutide one dose weekly 0 10/30/2020 Active HumaLOG KwikPen 100 units/mL injectable solution, [RxNorm: 9854550] insulin lispro 20 units with dinner 90 05/05/2020 Active Lumigan 0.01% ophthalmic solution, [RxNorm: 3296816] bimatoprost ophthalmic 0 12/29/2017 Active BD ultrafine needles for insulin Unknown use as directed qid 100 02/13/2016 Active glucometer with supplies One Touch Ultra Mini Unknown use as directed ac bid Dx 250.00 1 04/01/2014 Active Drainable [id number] Unknown Use as directed 1 11/19/2010 Active Brock-Fit Natura Stomahesive Flexible Wafer 32mm #[id number] 2 Unknown Use as directed 1 11/19/2010 Active Stomahesive flexible wafer 1 1/2' Unknown Use as directed 3 months 08/21/2009 Active Lancets Unknown use as d irected 90 06/24/2008 Active INSURANCE PROVIDERS Payer Name Policy Type P olicy ID Covered Republican ID Policy [employer] MEDIC[employer] Health Insurance [id number] MEENU MORA ALEIDA UMR [id number] FREEMAN MOURA ASSESSMENTS # Encounter for general adult medical examination without abnormal findings # Other hyperlipidemia (E78.49): # Bilateral cataracts (H26.9):# Diabetic nephropathy (E11.21): # CORONARY ATHEROSCLEROSIS OF UNSPECIFIED TYPE OF VE (I25.10): # UNSPECIFIED ESSENTIAL HYPERTENSION (I10): PROBLEMS Problem Problem Status D ate Started Date Resolved Date Inactivated Influenza vaccine needed [SNOMED-CT: 3878608054685] Active 12-09-2014 NA NA Acute rhinosinusitis [SNOMED-CT: 739192319] Active 05-30-2014 NA NA UNSPECIFIED VIRAL INFECTION [SNOMED-CT: 122045788] Active 05-06-2012 NA NA REDNESS OR DISCHARGE OF EYE [SNOMED-CT: 22293585] Active 06-12-2012 NA NA Diabetes mellitus [SNOMED-CT: 77276827] Active 05-15-2015 NA NA Routine general medical examination at a health care facility [ICD10: Z00.00] Active 01-17-2016 NA NA DIABETES MELLITUS WITHOUT MENTION OF COM PLICATION [SNOMED-CT: 700130643] Active 06-20-2008 NA NA UNSPECIFIED ESSENTIAL HYPERTENSION [SNOMED-CT: 7477371 0] Active 06-20-2008 NA NA 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 [SNOMED-CT: 3377337 07] Active 06-20-2008 NA NA PAIN IN OR AROUND EYE [SNOMED-CT: 82986882] Active 06-12-2012 NA NA Malaise and fatigue [SNOMED-CT: 179927976] Active 05-15-2015 NA NA On examination - aortic systolic murmur [SNOMED-CT: 154624307] Active 01-07-2020 NA NA Systolic ejection sound [SNOMED-CT: 73548088] Active 01-07-2020 NA NA DIABETES MELLITUS WITHOUT MENTION OF COM PLICATION [SNOMED-CT: 264487591] Active 08-15-2008 NA NA Diabetic nephropathy [SNOMED-CT: 472064878] Active 07-27-2018 NA NA Vitamin D deficiency [SNOMED-CT: 16610547] Active 07-27-2018 NA NA Cough [SNOMED-CT: 86313896] Active 07-06-2018 NA NA Bilateral cataracts [SNOMED-CT: 42610352] Active 10-30-2020 NA NA CERVICALGIA [SNOMED-CT: 20726522] Active 06-06-2010 NA NA DIABETES MELLITUS WITHOUT MENTION OF COM PLICATION TYPE II OR UNSPECIFIED TYPE UNCONTROLLED [SNOMED-CT: 197137028] Active 03-12-2013 NA NA Leukopenia [SNOMED-CT: 39544481] Active 05-17-2019 NA NA NEED FOR PROPHYLACTIC VACCINATION AND IN OCULATION AGAINST INFLUENZA [SNOMED-CT: 491466178] Active 11-19-2010 NA NA Diabetic - poor control [SNOMED-CT: 526231353] Active 12-09-2014 NA NA Hyperlipidemia [SNOMED-CT: 44549241] Activ e 12-09-2014 NA NA Benign enlargement of prostate [SNOMED-CT: 073401131] Active 12-09-2014 NA NA Achilles tenosynovitis [SNOMED-CT: 457420628] Active 08-14-2015 NA NA Other specified vaccination [ICD10: Z23] Active 01-17-2016 NA NA ULCERATIVE COLITIS UNSPECIFIED [SNOMED-CT: 75974241] Active 03-31-2009 NA NA CORONARY ATHEROSCLEROSIS OF UNSPECIFIED TYPE OF VE [SNOMED-CT: 58721401] Active 03-31-2009 NA NA HYPERPLASIA OF PROSTATE UNSPECIFIED [SNOMED-CT: 117724 004] Active 03-31-2009 NA NA IMPOTENCE OF ORGANIC ORIGIN [SNOMED-CT: 011278877] Active 03-31-2009 NA NA IMPOTENCE OF ORGANIC ORIGIN [SNOMED-CT: 046171523] Active 01-17-2010 NA NA Encounter for general adult medical exam ination without abnormal findings [ICD10: Z00.00] Active 10-23-2016 NA NA Gouty arthropathy [SNOMED-CT: 932210170] Active 12-29-2017 NA NA Dizziness [SNOMED-CT: 155246040] Active 01-30-2015 NA NA Intention tremor [SNOMED-CT: 89367579] Active 01-30-2015 NA NA Other hyperlipidemia [ICD10: E78.49] Activ e 05-12-2019 NA NA Chronic tremor [SNOMED-CT: 242963934] Active 05-12-2019 NA NA Hoarseness [SNOMED-CT: 38986469] Active 05-12-2019 NA NA PROCEDURES Procedure Date CPT Code Procedure 10/30/2020 08:25:19 G0439 ANNUAL WELLNESS VISIT, SUBSEQUENT 10/30/2020 08:25:19 G8427 Eligible clinician attests to documenting in the medical record they obtained, updated, or reviewed the patient's current medications 10/30/2020 08:25:19 47803 Hemoglobin; glycosylated (A1C) by device cleared by FDA for home use 10/30/2020 08:25:19 3044F Most recent hemoglobin A1c (HbA1c) level less than 7.0% (DM) 10/30/2020 08:25:19 1036F Current tobacco non-user (CAD, CAP, COPD, PV) (DM) (IBD) 10/30/2020 08:25:19 Dilated retinal eye exam with interpretation by an project consultant or nurse first aid documented and reviewed (DM) 10/30/2020 08:25:19 1123F Advance Care Planning discussed and documented advance care plan or surrogate decision maker documented in the medical record (DEM) (NANETTE, Pall Cr) 05/05/2020 13:32:27 3044F Most recent hemoglobin A1c (HbA1c) level less than 7.0% (DM) 05/05/2020 08:51:19 46373 Telephone evaluation and management service by a physician or other qualified health ocular care technologist who may report evaluation and management services [...] reviewed the patient's current medications 01/28/2020 09:18:14 59015 Telephone evaluation and management service by a physician or other qualified health ocular care technologist who may report evaluation and management services provided to an established patient, parent, or guardian not originating from a related E/M service provided within the previous 7 days nor leading to an E/M service or procedure within the next 24 hours or soonest available appointment; 11-20 minutes of medical discussion 01/07/2020 12:28:49 54137 Office or other outpatient visit for the [...] moderate severity. Physicians typically spend 15 minutes waxn-lc-krcz with the patient and/or family. 11/29/2019 14:25:52 [...] record (DEM) (NANETTE, Pall Cr) 06/28/2019 12:47:05 72922 Office or other outpatient visit for the [...] moderate severity. Physicians typically spend 15 minutes uqrq-ef-zhol with the patient and/or family. 05/17/2019 14:26:42 74843 Office or other outpatient visit for the [...] high severity. Physicians typically spend 25 minutes yqlb-mp-qwzw with the patient and/or family. 05/12/2019 08:23:59 21908 Office or other outpatient visit for the [...] high severity. Physicians typically spend 40 minutes vfyx-nk-nbhn with the patient and/or family. 05/12/2019 08:23:59 39614 Hemoglobin; glycosylated (A1C) by device cleared by FDA for home use 05/12/2019 08:23:59 G8427 Eligible clinician attests to documenting in the medical record they obtained, updated, or reviewed the patient's current medications 05/12/2019 08:23:59 3044F Most recent hemoglobin A1c (HbA1c) level less than 7.0% (DM) 12/25/2018 11:00:16 67446 Periodic comprehensive preventive medicine reevaluation and management of an individual including an age and gender appropriate history, examination, counseling/anticipatory guidance/risk factor reduction interventions, and the ordering of laboratory/diagnostic procedures, established patient; 65 years and older 12/08/2018 10:47:25 3044F Most recent hemoglobin A1c (HbA1c) level less than 7.0% (DM) 09/21/2018 09:27:25 59265 Periodic comprehensive preventive medicine reevaluation and management of an individual including an age and gender appropriate history, examination, counseling/anticipatory guidance/risk factor reduction interventions, and the ordering of laboratory/diagnostic procedures, established patient; 65 years and older 09/21/2018 09:27:25 3045F Most recent hemoglobin A1c (HbA1c) level 7.0-9.0% (DM) 09/21/2018 09:27:25 2022F Dilated retinal eye exam with interpretation by an project consultant or nurse first aid documented and reviewed (DM) 09/21/2018 09:27:25 G8427 Eligible clinician attests to documenting in the medical record they obtained, updated, or reviewed the patient's current medications 08/31/2018 11:31:29 3045F Most recent hemoglobin A1c (HbA1c) level 7.0-9.0% (DM) 07/27/2018 15:09:01 89561 Office or other outpatient visit for the [...] moderate severity. Physicians typically spend 15 minutes bipf-ih-omie with the patient and/or family. 07/06/2018 11:57:31 G8427 Eligible clinician attests to documenting in the medical record they obtained, updated, or reviewed the patient's current medications 07/06/2018 11:57:31 1036F Current tobacco non-user (CAD, CAP, COPD, PV) (DM) (IBD) 07/06/2018 11:57:31 2022F Dilated retinal eye exam with interpretation by an project consultant or nurse first aid documented and reviewed (DM) 07/06/2018 11:57:31 3045F Most recent hemoglobin A1c (HbA1c) level 7.0-9.0% (DM) 07/06/2018 11:57:31 1123F Advance Care Planning discussed and documented advance care plan or surrogate decision maker documented in the medical record (DEM) (NANETTE, Pall Cr) 07/06/2018 11:57:31 40955 Periodic comprehensive preventive medicine reevaluation and management of an individual including an age and gender appropriate history, examination, counseling/anticipatory guidance/risk factor reduction interventions, and the ordering of laboratory/diagnostic procedures, established patient; 65 years and older 12/29/2017 11:43:59 G0439 ANNUAL WELLNESS VISIT, SUBSEQUENT 12/29/2017 11:43:59 57998 Hemoglobin; glycosylated (A1C) by device cleared by FDA for home use 12/29/2017 11:43:59 3044F Most recent hemoglobin A1c (HbA1c) level less than 7.0% (DM) 12/29/2017 11:43:59 1036F Current tobacco non-user (CAD, CAP, COPD, PV) (DM) (IBD) 12/29/2017 11:43:59 G8427 Eligible clinician attests to documenting in the medical record they obtained, updated, or reviewed the patient's current medications 12/29/2017 11:43:59 2021F Dilated retinal eye exam with interpretation by an project consultant or nurse first aid documented and reviewed (DM) 12/29/2017 11:43:59 1123F Advance Care Planning discussed and documented advance care plan or surrogate decision maker documented in the medical record (DEM) (NANETTE, Pall Cr) 08/25/2017 14:35:53 3044F Most recent hemoglobin A1c (HbA1c) level less than 7.0% (DM) 01/17/2017 13:59:40 43266 Office or other outpatient visit for the [...] high severity. Physicians typically spend 25 minutes pclt-ci-omrb with the patient and/or family. 10/23/2016 14:17:10 17844 Periodic comprehensive preventive medicine reevaluation and management of an individual including an age and gender appropriate history, examination, counseling/anticipatory guidance/risk factor reduction interventions, and the ordering of laboratory/diagnostic procedures, established patient; 65 years and older 10/23/2016 14:17:10 91921 Periodic comprehensive preventive medicine reevaluation and management [...] retinal eye exam with interpretation by an project consultant or nurse first aid documented and reviewed (DM) 10/23/2016 14:17:10 3044F Most recent hemoglobin A1c (HbA1c) level less than 7.0% (DM) 09/16/2016 09:17:04 56865 Office or other outpatient visit for the [...] high severity. Physicians typically spend 25 minutes xxxu-pl-fjgg with the patient and/or family. 09/16/2016 09:17:04 G9711 Patients with a diagnosis or past history of total colectomy or colorectal cancer 09/16/2016 09:17:04 2021F Dilated retinal eye exam with interpretation by an project consultant or nurse first aid documented and reviewed (DM) 09/16/2016 09:17:04 G8427 [...] G0439 ANNUAL WELLNESS VISIT, SUBSEQUENT 08/14/2015 11:10:52 62216 Office or other outpatient visit for the [...] moderate severity. Physicians typically spend 15 minutes bdfe-mv-kgsz with the patient and/or family. 05/15/2015 08:28:44 10802 Office or other outpatient visit for the [...] high severity. Physicians typically spend 25 minutes mqhe-pz-gdgb with the patient and/or family. 01/30/2015 08:36:25 36750 Collection of venous blood by venipuncture 01/30/2015 08:36:25 89292 Office or other outpatient visit for the [...] moderate severity. Physicians typically spend 15 minutes gxlf-hl-ynda with the patient and/or family. 12/09/2014 11:50:27 55390 Office or other outpatient visit for the [...] moderate severity. Physicians typically spend 15 minutes ybyt-uf-jcho with the patient and/or family. 12/09/2014 11:50:27 Q2035 Afluria flu Vaccine 12/09/2014 11:50:27 G0008 ADMINISTRATION OF FLU VACCINE (V04.81) 05/30/2014 08:55:58 62879 Office or other outpatient visit for the [...] moderate severity. Physicians typically spend 15 minutes iqwb-fo-jsbs with the patient and/or family. 04/29/2014 15:16:59 G0439 ANNUAL WELLNESS VISIT, SUBSEQUENT 04/29/2014 15:16:59 76624 Hemoglobin; glycosylated (A1C) by device cleared by FDA for home use 12/06/2013 00:00:00 53324 Office or other outpatient visit for the [...] moderate severity. Physicians typically spend 15 minutes vdsv-zp-auww with the patient and/or family. 11/17/2013 00:00:00 67326 Office or other outpatient visit for the [...] moderate severity. Physicians typically spend 15 minutes fvfw-wo-fljp with the patient and/or family. 09/20/2013 00:00:00 45347 Office or other outpatient visit for the [...] high severity. Physicians typically spend 25 minutes ofbf-ux-cxcu with the patient and/or family. 09/20/2013 00:00:00 06404 Hemoglobin; glycosylated (A1C) by device cleared by FDA for home use 07/21/2013 00:00:00 64573 Office or other outpatient visit for the [...] high severity. Physicians typically spend 25 minutes uykm-rx-tpgm with the patient and/or family. 06/30/2013 00:00:00 11483 Hemoglobin; glycosylated (A1C) by device cleared by FDA for home use 05/26/2013 00:00:00 10209 Office or other outpatient visit for the [...] high severity. Physicians typically spend 40 minutes onqj-fi-gdym with the patient and/or family. 05/26/2013 00:00:00 21124 Hemoglobin; glycosylated (A1C) by device cleared by FDA for home use 03/12/2013 00:00:00 [id number] Hemoglobin; glycosylated (A1C) by device cleared by FDA for home use 03/12/2013 00:00:00 47513 Collection of venous blood by venipuncture 03/12/2013 00:00:00 73235 Office or other outpatient visit for the [...] high severity. Physicians typically spend 25 minutes carl-we-gqqr with the patient and/or family. 11/04/2012 11:10:05 [id number] MEDICARE PHYSICAL (ANNUAL WELLNESS, FIRST) 06/12/2012 10:23:59 50966 Office or other outpatient visit for the [...] moderate severity. Physicians typically spend 15 minutes jpdo-ax-kqeo with the patient and/or family. 05/25/2012 09:16:46 47546 Office or other outpatient visit for the [...] high severity. Physicians typically spend 25 minutes eoin-ef-wxuw with the patient and/or family. 05/06/2012 09:14:51 21887 Infectious agent antigen detection by immunoassay with direct optical observation; Influenza 05/06/2012 09:14:51 76086 Hemoglobin; glycosylated (A1C) by device cleared by FDA for home use 05/06/2012 09:14:51 [id number] Office or other outpatient visit for the [...] moderate severity. Physicians typically spend 15 minutes dwzq-gc-arzt with the patient and/or family. 05/06/2012 09:14:51 65977 Collection of venous blood by venipuncture 01/15/2012 11:25:41 61230 Hemoglobin; glycosylated (A1C) by device cleared by FDA for home use 01/15/2012 11:25:41 47069 Office or other outpatient visit for the [...] high severity. Physicians typically spend 25 minutes smvc-pw-snwm with the patient and/or family. 07/22/2011 11:36:33 [id number] AT [employer] PRESCRIPTION CREATED DURING THE ENCOUNTER WAS GENERATED AND TRANSMITTED ELECTRONICALLY USING A QUALIFIED [employer] SYSTEM 07/22/2011 11:36:33 73627 Office or other outpatient visit for the [...] high severity. Physicians typically spend 25 minutes tfsw-ge-ushp with the patient and/or family. 07/22/2011 11:36:33 63697 Collection of venous blood by venipuncture 02/27/2011 14:11:30 00330 Hemoglobin; glycosylated (A1C) 02/27/2011 14:11:30 66884 Office or other outpatient visit for the [...] high severity. Physicians typically spend 25 minutes wkmh-id-vrir with the patient and/or family. 11/19/2010 09:55:18 31914 INFLUENZA VACCINATION 11/19/2010 09:55:18 86990 Office or other outpatient visit for the [...] high severity. Physicians typically spend 25 minutes iwug-pe-wlnl with the patient and/or family. 11/19/2010 09:55:18 28761 Immunization administration (includes percutaneous, intradermal, subcutaneous, or intramuscular injections); one vaccine (single or combination vaccine/toxoid) 06/06/2010 11:56:45 54425 Office or other outpatient visit for the [...] moderate severity. Physicians typically spend 15 minutes mpoy-wn-jooz with the patient and/or family. 03/14/2010 09:31:41 79586 Office or other outpatient visit for the [...] moderate severity. Physicians typically spend 15 minutes zxyz-tr-pkjn with the patient and/or family. 02/16/2010 15:36:52 01456 Office or other outpatient visit for the [...] or minor. Physicians typically spend 10 minutes sutl-bz-xmku with the patient and/or family. 01/17/2010 15:16:51 66557 Office or other outpatient visit for the [...] or minor. Physicians typically spend 10 minutes pgih-le-lrvo with the patient and/or family. 12/20/2009 10:32:27 36617 Office or other outpatient visit for the [...] high severity. Physicians typically spend 25 minutes jzug-zn-oqvc with the patient and/or family. 03/31/2009 09:20:07 14890 ADMINISTRATION OF TH H1N1 VACCINE 03/31/2009 09:20:07 56595 Office or other outpatient visit for the [...] high severity. Physicians typically spend 25 minutes ljel-cf-pbhq with the patient and/or family. 03/31/2009 09:20:07 01834 Collection of venous blood by venipuncture 08/15/2008 09:58:37 58340 Office or other outpatient visit for the [...] high severity. Physicians typically spend 25 minutes btxb-ct-dcbu with the patient and/or family. 06/24/2008 14:09:38 16429 Office or other outpatient visit for the [...] high severity. Physicians typically spend 25 minutes htxz-rh-fopq with the patient and/or family. 06/24/2008 14:09:38 92307 Collection of venous blood by venipuncture REASON FOR REFERRAL No Reason for Referral information available. RESULTS Result Type Result Value Relevant Reference Range Interpretation Date VITAMIN D, 25-HYDROXY 32.3 ng/mL 30.0-100.0 No [...] 05/05/2020 12:06:00 ALBUMIN 3.8 gm/dL 3.4-5.0 No Flag 05/05/2020 12:06:00 CHOLESTEROL 144 mg/dL 0- 200 No Flag 05/05/2020 12:06:00 TRIGLYCERIDES 61 mg/dL 0 -150 No Flag 05/05/2020 12:06:00 LDL CHOLESTEROL 62 mg/dL 0-100 No Flag 05/05/2020 12:06:00 HDL CHOLESTEROL 70 mg/dL 40-60 H 05/05/2020 12:06:00 CHOL/HDL RATIO 2.1 0.0- 5.0 No [facility] 05/05/2020 12:06:00 HGBA1C 6.9 % 3.8-5.6 H 05/05/2020 11:53:00 ESTIMATED AVERAGE GLUCOSE 151.3 mg/dL -- No [facility] 05/05/2020 11:53:00 URINE MICROALBUMIN 11.2 mg/L 1.3-20.0 No [facility] 05/05/2020 11:47:00 URINE CREATININE 110.1 mg/dL -- No [facility] 05/05/2020 11:47:00 MICROALBUMIN/CREATININE R 10 ug/mg -- No [facility] 05/05/2020 11:47:00 WHITE BLOOD COUNT 3.8 K/mm3 4.0-10.0 L 05/05/2020 11:34:00 RED BLOOD COUNT 4.24 M/mm3 4.50-6.00 L 05/05/2020 11:34:00 HEMOGLOBIN 14.0 gm/dL 14 .0-18.0 No [facility] 05/05/2020 11:34:00 HEMATOCRIT 40.8 % 42.0-5 4.0 L 05/05/2020 11:34:00 MEAN CELL VOLUME 96.2 fl 80-96 H 05/05/2020 11:34:00 MEAN CORPUSCULAR HEMOGLOB 33.0 pg 27.0-31.0 H 05/05/2020 11:34:00 MEAN CORPUSCULAR HGB CONC 34.3 g/dl 32.0- 36.0 No [facility] 05/05/2020 11:34:00 RED CELL DISTRIBUTION WID 12.7 % 10.0-14.5 No [facility] 05/05/2020 11:34:00 PLATELET COUNT 168 K/mm3 172-450 L 05/05/2020 11:34:00 MEAN PLATELET VOLUME 9.2 fl 9.0-13.0 No [facility] 05/05/2020 11:34:00 GRAN % 50.8 % 50-80.0 No [facility] 05/05/2020 11:34:00 IG% 0.0 % 0.0-0.2 No [facility] 05/05/2020 11:34:00 LYMPH % 30.9 % 25.0-50.0 No [facility] 05/05/2020 11:34:00 MONO % 10.5 % 2.0-10.0 [...] 09:00:00 CREATININE 1.3 mg/dL 0.7 -1.3 No [facility] 05/13/2019 09:00:00 SODIUM 142 mmol/L 136-145 No Flag 05/13/2019 09:00:00 POTASSIUM 4.2 mmol/L 3.5 -5.1 No Flag 05/13/2019 09:00:00 CHLORIDE 102 mmol/L 98-1 07 No Flag 05/13/2019 09:00:00 CO2 28 mmol/L 21-32 No Flag 05/13/2019 09:00:00 CALCIUM 9.0 mg/dL 8.5-10 .1 No Flag 05/13/2019 09:00:00 ANION GAP 12.0 mmol/L 5- 12 No [facility] 05/13/2019 09:00:00 AST 26 U/L 15-37 No Flag 05/13/2019 09:00:00 ALT 33 U/L 12-78 No Flag 05/13/2019 09:00:00 ALKALINE PHOSPHATASE 75 U/L 46-116 No [facility] 05/13/2019 09:00:00 TOTAL BILIRUBIN 0.9 mg/dL 0.2-1.0 No [facility] 05/13/2019 09:00:00 TOTAL PROTEIN 7.4 g/dl 6 .4-8.2 No [facility] 05/13/2019 09:00:00 ALBUMIN 4.2 gm/dL 3.4-5.0 No [...] Observed Smoking Status Former smoker, [CHERYL D-CT: [id number]], 5.00 pk yrs/30.00 yrs quit 05/30/2014 - 05/30/2014 TREATMENT PLAN Encounter Date [facility] 10/30/2020 08:25:19 Plan printed and provided to [...] 1. (Transmitted by Debbie Morse DO) PRESCRIBE: metFORMIN 500 mg oral tablet, extended release, three po daily in am, # 270, RF: 1. (Transmitted by [employer]) PRESCRIBE: HumaLOG KwikPen 100 units/mL injectable solution, 20 units with dinner, # 90, RF: 1. (Transmitted by [employer], Dexterra) PRESCRIBE: atorvastatin 20 mg oral tablet, one po daily, # 90, RF: 1. (Transmitted by [employer]) otc vit D phone 18 min only [...] tremor, # 90, RF: 1. (Transmitted by [employer], Dexterra) PRESCRIBE: metFORMIN 500 mg oral tablet, extended release, three po daily in am, # 270, RF: 1. (Transmitted by [employer]) PRESCRIBE: HumaLOG KwikPen 100 units/mL injectable solution, 20 units with dinner, # 90, RF: 1. (Transmitted by [employer], Dexterra) PRESCRIBE: atorvastatin 20 mg oral tablet, one po daily, # 90, RF: 1. (Transmitted by [employer]) otc vit D phone 18 min only [...] tremor, # 90, RF: 1. (Transmitted by [employer], Dexterra) PRESCRIBE: metFORMIN 500 mg oral tablet, extended release, three po daily in am, # 270, RF: 1. (Transmitted by Plan A Drinkard, DO) PRESCRIBE: HumaLOG KwikPen 100 units/mL injectable solution, 20 units with dinner, # 90, RF: 1. (Transmitted by [employer], Dexterra) PRESCRIBE: atorvastatin 20 mg oral tablet, one po daily, # 90, RF: 1. (Transmitted by [employer], Dexterra) otc vit D phone 18 min only [...] # 5, RF: 3. (Transmitted by Debbie Mini, DO) PRESCRIBE: primidone 50 mg oral tablet, one po hs daily for tremor, # 90, RF: 3. (Transmitted by Debbie Rossiter, DO) PRESCRIBE: metFORMIN 500 mg oral tablet, extended release, three po daily in am, # 270, RF: 3. (Transmitted by Debbie Rossiter, DO) PRESCRIBE: losartan 25 mg oral tablet, one po daily, # 90, RF: 3. (Transmitted by Debbie Mini, DO) PRESCRIBE: Jardiance 10 mg oral tablet, one po daily in am, # 90, RF: 3. (Transmitted by Debbie Rossiter, DO) PRESCRIBE: HumaLOG KwikPen 100 units/mL injectable solution, 20 units with dinner, # 90, RF: 3. (Transmitted by Debbie Mini, DO) PRESCRIBE: ergocalciferol 50,000 intl units (1.25 mg) oral capsule, one po weekly, # 12, RF: 1. (Transmitted by Debbie Mini, DO) PRESCRIBE: atorvastatin 20 mg oral tablet, one po daily, # 90, RF: 3. (Transmitted by Debbie Morse DO) CHANGED Current Meds: Viagra 100 mg oral tablet PROVIDED HM: CDSMP Given: "the obesity code", " the diabetes code", and "quide to fasting" also "the longevity solution" by Evaristo Mark MD You can download a [employer] son to your computer and get these books on [employer]. Watch the movie "the magic pill" documentary on [employer] Also [employer] movie call " Fat" the documentary Google [...] Evaristo Mark MD You can download a [employer] son to your computer and get these books on [employer]. Watch the movie "the magic pill" documentary on [employer] Also [employer] movie call " Fat" the documentary Google [...] RF: 3. (Transmitted by Debbie Morse, ) CHANGED Current Meds: Viagra 100 mg oral tablet PROVIDED HM: CDSMP Given: "the obesity code", " the diabetes code", and "quide to fasting" also "the longevity solution" by Evaristo Mark MD You can download a [employer] son to your computer and get these books on [employer]. Watch the movie "the magic pill" documentary on [employer] Also [employer] movie call " Fat" the documentary Google [...] necessary. "Social communication with physical isolation. " [facility] [phone] [facility]. [phone] 06/28/2019 12:47:05 Will need to go to [...] necessary. "Social communication with physical isolation. " [facility] [phone] [facility]. [phone] 06/28/2019 12:47:05 Will need to go to [...] necessary. "Social communication with physical isolation. " [facility] [phone] [facility] [phone] 05/17/2019 14:26:42 Plan printed and provided to [...] Get a flushot and pneumovax 23 at [facility] consider sleep studies ORDERED/ADVISED: Order Date 05-12-2019 - Overnight Oximetry (R25.1, E11.21, R49.8, R53.81, E78.49, E55.9) PROVIDED HM: CDSMP Given: "the obesity code", " the diabetes code", and "quide to fasting" also "the longevity solution" by Evaristo Mark MD You can download a [employer] son to your computer and get these books on [employer]. Watch the movie "the magic pill" documentary on [employer] Also [employer] movie call " Fat" the documentary Google [...] Get a flushot and pneumovax 23 at [facility] consider sleep studies ORDERED/ADVISED: Order Date 05-12-2019 - Overnight Oximetry (R25.1, E11.21, R49.8, R53.81, E78.49, E55.9) PROVIDED HM: CDSMP Given: "the obesity code", " the diabetes code", and "quide to fasting" also "the longevity solution" by Evaristo Mark MD You can download a [employer] son to your computer and get these books on [employer]. Watch the movie "the magic pill" documentary on [employer] Also [employer] movie call " Fat" the documentary Google [...] Get a flushot and pneumovax 23 at [facility] consider sleep studies ORDERED/ADVISED: Order Date 05-12-2019 - Overnight Oximetry (R25.1, E11.21, R49.8, R53.81, E78.49, E55.9) PROVIDED HM: CDSMP Given: "the obesity code", " the diabetes code", and "quide to fasting" also "the longevity solution" by Evaristo Mark MD You can download a [employer] son to your computer and get these books on [employer]. Watch the movie "the magic pill" documentary on [employer] Also [employer] movie call " Fat" the documentary Google [...] 270, RF: 3. (Transmitted by Debbie Morse, ) PRESCRIBE: losartan 25 mg oral tablet, one [...] # 90, RF: 3. (Transmitted by Debbie Rossiter, DO) PRESCRIBE: atorvastatin 20 mg oral tablet, [...] # 4, RF: 5. (Transmitted by Debbie Rossiter, DO) PRESCRIBE: losartan 25 mg oral tablet, one po daily, # 30, RF: 5. (Transmitted by Debbie Rossiter, DO) 07/27/2018 15:09:01 Plan printed and provided to patient: PRESCRIBE: ergocalciferol 50,000 intl units (1.25 mg) oral capsule, one po weekly, # 4, RF: 5. (Transmitted by Debbie Mini, DO) PRESCRIBE: losartan 25 mg oral tablet, one po daily, # 30, RF: 5. (Transmitted by Debbie Morse DO) 07/27/2018 15:09:01 Plan printed and provided to patient: PRESCRIBE: ergocalciferol 50,000 intl units (1.25 mg) oral capsule, one po weekly, # 4, RF: 5. (Transmitted by Debbie Mini, DO) PRESCRIBE: losartan 25 mg oral tablet, one po daily, # 30, RF: 5. (Transmitted by Debbie Rossiter, DO) 07/06/2018 11:57:31 Plan printed and provided [...] po daily, # 90, RF: 3. (Meléndez frenchtted by Debbie Morse DO) PROVIDED HM: Recommendations [...] get pneumovax 23 and a flushot at [facility] 12/29/2017 11:43:59 Plan printed and provided to [...] get pneumovax 23 and a flushot at [facility] 12/29/2017 11:43:59 Plan printed and provided to [...] get pneumovax 23 and a flushot at [facility] 01/17/2017 13:59:40 Letter written to [employer] see imported items Counseling and coordination of care: time a significant factor for this patient encounter...35minutes FTF 01/17/2017 13:59:40 Letter written to [employer] see imported items 01/17/2017 13:59:40 Letter written to [employer] see imported items 10/23/2016 14:17:10 See form [...] meal, # 15, RF: 0. (Transmitted by [employer], DO) PRESCRIBE: HumaLOG KwikPen 100 units/mL subcutaneous [...] daily, # 90, RF: 3. (Transmitted by [employer] Dexterra) Date Prescribed: 01/17/2016 PRESCRIBE: HumaLOG KwikPen 100 units/mL subcutaneous solution, 10-15 units sq with evening meal, # 15, RF: 0. (Transmitted by [employer], Dexterra) PRESCRIBE: HumaLOG KwikPen 100 units/mL subcutaneous solution, [...] daily, # 90, RF: 3. (Transmitted by [employer] Dexterra) Date Prescribed: 01/17/2016 PRESCRIBE: HumaLOG KwikPen 100 units/mL subcutaneous solution, 10-15 units sq with evening meal, # 15, RF: 0. (Transmitted by [employer], Dexterra) PRESCRIBE: HumaLOG KwikPen 100 units/mL subcutaneous solution, [...] 5. (Transmitted by Debbie Morse DO) PRESCRIBE: HumaLOG KwikPen 100 units/mL subcutaneous solution, 10-15 units sq with evening meal, # 5, RF: 5. (Transmitted by Debbie Morse, DO) PRESCRIBE: primidone 50 mg oral tablet, one po hs daily for tremor, # 90, RF: 3. (Transmitted by Debbie Morse, DO) PRESCRIBE: lisinopril 10 mg oral tablet, one po daily, # 90, RF: 3. (Transmitted by Debbie Morse, DO) PRESCRIBE: atorvastatin 20 mg oral tablet, one po daily, # 90, RF: 3. (Transmitted by Debbie Morse DO) PRESCRIBE: metFORMIN 500 mg oral tablet, extended release, one po qam and two po qpm pc, # 270, RF: 3. (Transmitted by Debbie Mini, Dexterra) PRESCRIBE: allopurinol 300 mg oral tablet, one po daily, # 90, RF: 3. (Transmitted by Debbie RossiterDO mary) PROVIDED HM: Healthy Diet and Physical Activity: [...] the Left Deltoid (Mfg: OTHER lot no. [id number], expires 07/24/2016) 01/17/2016 10:41:29 Plan printed and provided to patient: PRESCRIBE: BD ultrafine needles for insulin, use as directed qid, # 100, RF: 5. (Transmitted by Debbie Morse, DO) PRESCRIBE: HumaLOG KwikPen 100 units/mL subcutaneous solution, 10-15 units sq with evening meal, # 5, RF: 5. (Transmitted by Debbie Morse, DO) PRESCRIBE: primidone 50 mg oral tablet, one po hs daily for tremor, # 90, RF: 3. (Transmitted by Debbie Morse, DO) PRESCRIBE: lisinopril 10 mg oral tablet, [...] 90, RF: 3. (Transmitted by Debbie Mini, ) PROVIDED HM: Healthy Diet and Physical [...] the Left Deltoid (Mfg: OTHER lot no. [id number], expires 07/24/2016) 01/17/2016 10:41:29 Plan printed and provided to patient: PRESCRIBE: BD ultrafine needles for insulin, use as directed qid, # 100, RF: 5. (Transmitted by Debbie Morse DO) PRESCRIBE: HumaLOG KwikPen 100 units/mL subcutaneous solution, 10-15 units sq with evening meal, # 5, RF: 5. (Transmitted by Debbie Morse, DO) PRESCRIBE: primidone 50 mg oral tablet, one po hs daily for tremor, # 90, RF: 3. (Transmitted by Debbie Morse, DO) PRESCRIBE: lisinopril 10 mg oral tablet, one po daily, # 90, RF: 3. (Transmitted by Debbie Morse, DO) PRESCRIBE: atorvastatin 20 mg oral tablet, one po daily, # 90, RF: 3. (Transmitted by Debbie Morse, DO) PRESCRIBE: metFORMIN 500 mg oral tablet, extended release, one po qam and two po qpm pc, # 270, RF: 3. (Transmitted by Debbie Morse, ) PRESCRIBE: allopurinol 300 mg oral tablet, one po daily, # 90, RF: 3. (Transmitted by Debbie Rossiter, ) PROVIDED HM: Healthy Diet and Physical [...] the Left Deltoid (Mfg: OTHER lot no. [id number], expires 07/24/2016) 08/14/2015 11:10:52 Plan printed and [...] for Diabetic Neuropathy Given: None REVIEWED EBM: [facility] for 'Essential Tremor Syndrome' ORDERED/ADVISED: - BMP [...] directed, # 6, RF: 5. (Transmitted by DebbieTheraSimard, DO) PRESCRIBE: metFORMIN 500 mg oral tablet, one po bid pc, # 180, RF: 3. (Transmitted by Debbie Morse, DO) PRESCRIBE: lisinopril 10 mg oral tablet, one po daily, # 90, RF: 3. (Transmitted by Debbie Rossiter, DO) PRESCRIBE: Lipitor 20 mg oral tablet, one po daily, # 90, RF: 3. (Transmitted by Debbie Morse, DO) PRESCRIBE: HumaLOG KwikPen 100 units/mL subcutaneous solution, 10-15 units sq with evening meal, # 5, RF: 5. (Transmitted by Debbie Morse DO) PRESCRIBE: allopurinol 300 mg oral tablet, one po daily, # 90, RF: 3. (Transmitted by Debbie Morse DO) PROVIDED HM: Recommendations [...] mL IM in the Left Deltoid (Mfg: [facility] lot no. [id number], expires 09/07/2015) REVIEWED EBM: [facility] for 'Parkinson Disease' PROVIDED: Patient Education (12/09/2014) 05/30/2014 08:55:58 PRESCRIBE: Zostavax subcutaneous injection, one dose now, # 1, RF: 0. PRESCRIBE: Augmentin 875 mg-125 mg oral tablet, one po bid, # 20, RF: 0. (Transmitted by Debbie Morse DO) PRESCRIBE: Flonase 50 mcg/inh nasal spray, two sprays each nostril once daily, # 1, RF: 5. (Transmitted by Debbie Morse DO) REVIEWED EBM: [facility] for 'Sinusitis' Return in 3 weeks if not resolved. 04/29/2014 08:26:44 Instructions printed and provided to patient: ADDED Current Meds: Invokana 100 mg oral tablet, one po daily, # 0, PROVIDED: Patient Education (04/29/2014) REVIEWED EBM: [facility] for 'Essential Tremor Syndrome' PROVIDED HM: Recommendations [...] # 90, RF: 3. (Transmitted by Debbie Rossiter, DO) PRESCRIBE: HumaLOG KwikPen 100 units/mL subcutaneous solution, 10-15 units sq wi th evening meal, # 5, RF: 5. (Transmitted by Debbie Morse, DO) PRESCRIBE: atenolol 25 mg oral tablet, One tablet daily, # 90, RF: 3. (Transmitted by Debbie Rossiter, DO) PRESCRIBE: allopurinol 300 mg oral tablet, one po daily, # 90, RF: 3. (Transmitted by Debbie Morse, DO) get Dr. Robles's consults ORDERED/ADVISED: - CBC [...] with him ORDERED/ADVISED: - Annette Moore (Opthamalogy) ([facility] eye eval due to diabetes) ORDERED/ADVISED: - Darcy Robles (Endocrinology) ([facility] liscense requirement due to diabetes.) 05/26/2013 11:27:52 [...] try propranolol for social situations. REVIEWED EBM: [facility] for 'Essential Tremor Syndrome' ORDERED/ADVISED: - TSH ICD9 Codes (333.1) 05/06/2012 09:14:51 Instructions printed and provided to patient: PRESCRIBE: Namita AC, one or two tsp po qid [...] 100, RF: 5. (Transmitted by Debbie Morse, ) PRESCRIBE: Viagra 100 mg oral tablet, use as directed, # 6, RF: 5. (Transmitted by Debbie Morse, ) PRESCRIBE: lisinopril 10 mg oral tablet, one po daily, # 90, RF: 1. (Transmitted by Debbie Morse, ) PRESCRIBE: Lipitor 20 mg oral tablet, one po daily, # 90, RF: 1. (Transmitted by Debbie Morse, ) PRESCRIBE: atenolol 25 mg oral tablet, One [...] Diabetic Retinopathy Given: done 4weeks ago in [place]. ORDERED/ADVISED: - CBC with diff (automated) ICD9 [...] RF: 5. (Transmitted by Debbie Mini, DO) 50% of this visit was spent discussing the diagnosis, natural history of the disease, risks/benefits of and various treatment options. Instruction in insulin. Questions answered and written inst. regarding dosing supplied to patient. PRESCRIBE: Acuchek glucose test strips, use as directed tid ac for sliding scale insulin injection, # 90, RF: 5. (Transmitted by Debbie Mini, DO) ORDERED/ADVISED: - HgAc (done in the office 8.4%) ICD9 Codes (250.02, V04.81, 401.9) 11/19/2010 09:55:18 Instructions printed and provided to patient: PRESCRIBE: Drainable [id number], Use as directed, # 1, RF: 5. PRESCRIBE: [employer] Natura Stomahesive Flexible Wafer 32mm #[id number], Use as directed, # 1, RF: 5. PRESCRIBE: lisinopril 10 mg oral tablet, one po daily, # 90, RF: 3. (Transmitted by Debbie Mini, DO) PRESCRIBE: BD ultrafine needles for insulin, use as directed qid, # 100, RF: 5. (Transmitted by DebbieTheraSimard, DO) PRESCRIBE: atenolol 25 mg oral tablet, One tablet daily, # 90, RF: 3. (Transmitted by Debbie Mini, DO) PRESCRIBE: allopurinol 300 mg oral tablet, one po daily, # 90, RF: 3. (Transmitted by Debbie Rossiter, DO) DISCONTINUE: metformin 1000 mg oral tablet one po bid and one half at noon pc PRESCRIBE: NOVOLOG INSULIN ASPART INJECTION 100 UNT/ML, use as directed tid with meals and titrate as directed, # 5, RF: 5. (Transmitted by Debbie Morse DO) PRESCRIBE: Lantus Solostar Pen 100 units/mL subcutaneous solution, 10 units daily in the evening, # 5, RF: 3. (Transmitted by Debbie Morse DO) DISCONTINUE: Humalog Mix 50/50 Pen subcutaneous suspension 22 units sq bid REVIEWED EBM: [facility] for 'Diabetes Mellitus, Type 2' REVIEWED EBM: [...] ml IM in the L DELTOID (Mfg: [employer] lot no. [id number], expires 09/07/2011) 06/06/2010 11:56:45 Ordered/Advised: - HgAc [...] Enanthate 200mg/ml.....1.5 ml left upper outer quadrant buttock.[id number] [employer]. by Dr. Hernandez Ordered/Advised: - HgAc (AODM) - CBC with diff (automated) 02/16/2010 15:36:52 Testosterone Enanthate 200mg/ml.....1.5 ml left upper outer quadrant buttock.[id number] [employer]. by Dr. Hernandez 01/17/2010 15:16:51 Testosterone Enanthate 200mg/ml.....1.5 ml right upper outer quadrant buttock.[id number] [employer]. by Dr. Hernandez 12/20/2009 10:32:27 50% of [...] ml IM in the Left deltoid (Mfg: [employer] lot no. [id number], expires 09/06/2009) 08/15/2008 09:58:37 PRESCRIBE: BD ultrafine [...] (lb) BMI (kg/m2) BP Sys (mmHg) BP Wright (mmHg) Heart Rate (/min) O2 % BldC Oximetry O2 % BldC Oximetry (on O2) Body Temp erature Respiratory Rate (/min) Head Circumf OFC by Tape measure 10/30/2020 08:25:19 74 2 14 27.5 148 [...]
[2021-01-26] MEDS ORDERED: DUOVISC (0.50ML VISCOAT/0.85ML PROVISC) OPHTH KIT As Ordered ONE ×2 (06:58→07:00)
[2021-01-26] MEDS ORDERED: PHENYLEPHRINE 1.5%/LIDOCAINE 1% INTRAOCULAR 0.8ML SYRINGE As Ordered ONE (06:58)
[2021-01-26] MEDS ORDERED: BSS IRR 500ML/OMIDRIA 4ML IRR BAG (OR ONLY) As Ordered ONE (06:59)
[2021-01-26] MEDS ORDERED: CEFUROXIME 1MG/0.1ML INTRACAMERAL INJ As Ordered ONE (06:59)
[2021-01-26] MEDS ORDERED: MIDAZOLAM INJ 2MG/2ML VIAL (J2250 PER 1MG) As Ordered ONE (08:43)
[2021-01-26 09:40] VITALS: BP 141/78
--- NOTE | 2021-01-27 10:03 | RO ---
OPERATIVE NOTE DATE OF OPERATION: 01/26/2021 PREOPERATIVE DIAGNOSIS: 1. Mature cataract, left eye. 2. Moderate open angle glaucoma, left eye. POSTOPERATIVE DIAGNOSIS: 1. Mature cataract, left eye. 2. Moderate open angle glaucoma, left eye. PROCEDURE: Phacoemulsification, cataract extraction with implantation of intraocular lens with TORIC increased depth of focused lens. IStent inject trabecular bypass stents (two), left eye. SURGEON: Eren Garces M.D. SVP OPERATIONS: ANESTHESIA: MAC and topical. COMPLICATIONS: None. ESTIMATED BLOOD LOSS: 0 mL CONDITION: Excellent to recovery room, shield over left eye. Lens is an [employer] TORIC IOL, model WPY031, power 23.0 diopter. INDICATIONS: This patient experienced decreased vision associated with cataract formation and is on three medications for open-angle glaucoma topically. He recently had cataract surgery in the right eye with the same procedures. His pressure has dropped significantly and he has been able to stay off two medications. He wished to see if he could avoid some of the medications going forward and decrease the likelihood of additional glaucoma surgery using the iStent while having his cataract removed and gave informed consent for the above procedures. DESCRIPTION OF PROCEDURE: Prior to entering the operating room, the patient was identified. The left eye was marked. He was wheeled supine to the OR suite positioned on a stretcher. Topical Tetracaine was placed in both eyes. He was prepped and draped with 5% Povidone-iodine to the lids and lashes. The lashes were taped with Tegaderm. A speculum was placed in the left eye. A 1 mm side port was created at the 5:30 position. 1% preservative free lidocaine was injected. Viscoat was injected. A 2.6 mm stepped, grooved clear corneal incision was made temporally. A bent cystitome needle and Utrata forceps fashioned a continuous curvilinear capsulorhexis. The patient's head was then rotated 45 degrees away from the surgeon and microscope 45 degrees toward the surgeon. Viscoat was placed over the clear cornea. A gonial prism was placed on the cornea. The iStent installer interior assemblies was advanced through the clear corneal wound across the pupil with excellent visualization on high magnification of the medial anterior chamber structures and landmarks. The sheath was drawn back on the iStent installer interior assemblies, exposing the trocar sharp tip. This was advanced and engaged in the trabecular meshwork one clock hour beneath the horizontal meridian. The button on the iStent installer interior assemblies was pushed and the stent was deployed. A reflux of heme established good location of the stent in Schlemm's canal. A second stent was deployed in the same fashion one clock hour above the horizontal meridian. The installer interior assemblies was removed from the eye. The patient's head and microscope were rotated back to primary position and the head stabilized with tape. Hydrodissection was performed with BSS. The lens was found to rotate freely. It was phacoemulsified using the [id number] technique. Residual cortex was removed with the IA. Provisc was injected to expand the capsular bag and anterior chamber. The pressure was checked. The ora intraoperative aberrometer was then used to check lens power and cylinder power. The above mentioned lens was called for and inserted using the lens delivery system. The TORIC markings were aligned with the 20 degree meridian. Residual viscoelastic was removed with the IA. BSS was used to hydrate the corneal wounds. Antibiotic prophylaxis was injected. The speculum was removed from the eye. A shield was taped over the eye. The patient was taken in excellent condition to the recovery room. BRIDGET
== END 2021-01-26 09:43 | disposition home or self-care (01) ==
LOC: M SDC 06:42
PROVIDERS: ATTEND Ophthalmology
DX: H25.89 Other age-related cataract (principal); H40.1122 Primary open-angle glaucoma, left eye, moderate stage; I10 Essential (primary) hypertension; E11.9 Type 2 diabetes mellitus without complications; E78.5 Hyperlipidemia, unspecified; Z79.899 Other long term (current) drug therapy
CPT/HCPCS: 0191T; 0376T; 66984; 92015; C1783; J1097; J2250; V2632; V2788

== ENCOUNTER → 2022-03-15 | Outpatient (CLI) | payer MEDICARE, OTHER ==
[~2022-03-15] MED LIST changes: +LOSA25TA13 PO; -LOSA25TA14 PO; -OFLOXACIN 0.3 % (OCUFLOX) OPTH SOL 5ML OS SCH; -PHENYLEPHRINE 2.5% OPHTH SOL 2ML OS SCH; -PROPARACAINE 0.5% OPHTH SOL 15ML OS ONE; -TROPICAMIDE 1% OPHTH SOLN 2ML OS SCH
== END ==
LOC: M CARPUL 09:20
PROVIDERS: ATTEND Family Medicine
DX: I35.8 Other nonrheumatic aortic valve disorders (principal)